=== PATIENT | male | born 1950 | race Caucasian/White ===

== ENCOUNTER 2022-01-23 08:20 | Outpatient (REF) | payer MEDICARE, OTHER, SELFPAY ==
--- NOTE | ~2022-01-23 | XR_ITS ---
EXAMINATION: XR CHEST CLINICAL INFORMATION: Cough COMPARISON: None TECHNIQUE: 2 views of the chest were obtained. FINDINGS: The cardiac and mediastinal contours are normal. There is linear scarring or subsegmental atelectasis at the right lung base. The lungs are otherwise clear. There is no pleural effusion or pneumothorax. There are degenerative changes of the spine. There are surgical clips in the upper midline abdomen. XR/XR chest 2V IMPRESSION: Linear scarring or subsegmental atelectasis at the right lung base. Otherwise unremarkable exam.
== END 2022-01-23 08:21 | disposition home or self-care (01) ==
LOC: HO.XRAY 08:20
PROVIDERS: Absent Provider Internal Medicine; PCP Internal Medicine; Visit Provider Emergency Medicine
DX: R05.9 Cough, unspecified (principal)
CPT/HCPCS: 71046

== ENCOUNTER 2022-07-30 11:20 | Emergency (ER) | payer MEDICARE, OTHER, SELFPAY ==
--- NOTE | ~2022-07-30 | XR_ITS ---
EXAMINATION: XR CHEST CLINICAL INFORMATION: Elevated blood pressure. COMPARISON: 01/23/2022 chest radiographs. TECHNIQUE: Frontal view of the chest was obtained. FINDINGS: No significant abnormality is noted involving the heart, lungs, mediastinum, bony thorax or soft tissues. XR/XR chest 1V IMPRESSION: No acute cardiopulmonary process.
[2022-07-30 11:31] VITALS: BP 204/82; PULSE 80; O2SAT 98
--- NOTE | 2022-07-30 11:31 | ECG_ITS ---
Test Reason : cp Blood Pressure : / mmHG Vent. Rate : 073 BPM Atrial Rate : 073 BPM P-R Int : 166 ms QRS Dur : 128 ms QT Int : 378 ms P-R-T Axes : 056 045 037 degrees QTc Int : 416 ms Normal sinus rhythm Right bundle branch block Abnormal ECG No previous ECGs available Referred By: Sandi Monroy Electronically Signed By:JIGNA MORELOS MD
[2022-07-30 11:32] VITALS: BP 219/86; PULSE 83; RESP 18; TEMP 37.1; O2SAT 100; BMI 29.6
--- NOTE | 2022-07-30 11:52 | ED_ITS ---
HPI - Recheck/Abnormal Lab/Rx General Chief Complaint: General Medical Stated Complaint: High BP 202/95 at doctors office per EMS Time Seen by Provider: 07/30/22 11:26 Source: patient and EMS Mode of arrival: EMS Limitations: language barrier (Mongolian Speaking) History of Present Illness HPI narrative: 71yoM c PMHx of HTN, DM, NSTEMI w CARLEE to RCA at [facility] with an echocardiogram that showed preserved LV systolic function, no regional wall motion abnormalities, no valve abnormalities, an intact ejection fracture 55-60%, stage III CKD, hepatitis C cirrhosis and hepatocellular carcinoma status post liver transplant at [facility] who is presenting to the ED via EMS after he was found to have an elevated blood pressure at his PCP office where he went for a wellness visit prior to arrival. Patient reports the liver Transplant Clinic told him to hold his blood pressure medications for an MRI he had yesterday. Therefore he was supposed to hold his blood pressure medications yesterday and the day before yesterday which she did. Today when he got up he was unable to eat breakfast therefore he rash to get to his PCP appointment and he did not take his blood pressure medication. then when he arrived that his PCPs office he was noted to have a blood pressure of 202/[address] depressions on his EKG no other complaints therefore they sent him here for further evaluation treatment. Patient is supposed to be on labetalol 300 mg b.i.d. and losartan 25 mg daily. He denies any complaints at this time which include any dizziness, headaches, neck pain / stiffness, change in vision, jaw pain, ear ringing, chest pain or shortness of breath, dyspnea on exertion, orthopnea, palpitations, paresthesias, nausea/vomiting / diarrhea constipation, black or bloody stools, abdominal pain, flank pain, back pain, dysuria, hematuria, abnormal penile discharge, lower extremity edema or calf tenderness, rashes, recent travel or sick contacts or any other symptoms complaints or concerns at this time. MD complaint: abnormal lab ( elevated blood pressure 202/95) Initial visit (ago): hour(s) ( prior to arrival) Returns today for: other ( was at a regular follow-up visit PCPs for his diabetes and hypertension and was sent here Due to elevated BP and ST depressions on EKG) Symptoms since prior visit: no new symptoms Associated symptoms: none Related Data Allergies Allergy/AdvReac Type Severity Reaction Status Date / Time No Known Allergies Allergy Verified 07/30/22 11:31 Review of Systems Review of Systems: Constitutional : No Weight loss, No Fever, No Chills, No Night Sweats, No Fatigue, No Malaise ENT/Mouth : No Hearing loss, No Ear Pain, No Nasal Congestion, No Sinus Pain, No Hoarseness, No sore throat, No Rhinorrhea, No Swallowing Difficulty Eyes: No Eye Pain, No Swelling, No Redness, No Foreign Body, No Discharge, No Vision Changes Cardiovascular : No Chest Pain, No SOB, No Dyspnea on Exertion, No Orthopnea, No Edema, No Palpitations Respiratory : No Cough, No Sputum, No Wheezing, No Smoke Exposure, No Dyspnea Gastrointestinal : No Nausea, No Vomiting, No Diarrhea, No Constipation, No abdominal Pain, No Hematochezia, No Melena Genitourinary : no irregular bleeding, No Dysuria, No Urinary Frequency, No Hematuria, No Urinary Incontinence, No Urgency, No Flank Pain, No Urinary Flow Changes, No Hesitancy Musculoskeletal : No joint pain, No Myalgias, No Joint Swelling Skin : No Skin Lesions, No rash Neuro : No Weakness, No Numbness, No Paresthesias, No Loss of Consciousness, No Dizziness, No Headache Psych : No Anxiety/Panic, No Depression, No SI/HI/AH/VH, No Social Issues, Heme/Lymph: No Bruising, No Bleeding,No Lymphadenopathy Endocrine : No Polyuria, No Polydipsia, No Temperature Intolerance + Elevated Blood Pressure Yes all other systems are reviewed and are negative [facility] Past Medical History Attestation statement: The following information was validated with the patient. Source: old records reviewed, obtained from family and nursing notes reviewed Medical History History of hepatitis C History of kidney stones Surgical History History of colonoscopy History of cystoscopy History of liver biopsy Social History Social History Advance Directives: No Advance Directives Information Provided: No Physical Exam Vital Signs: Vital Signs: Last Vital Signs Temp 98.8 F 07/30/22 11:32 Pulse 83 07/30/22 11:32 Resp 18 07/30/22 11:32 BP 219/86 H 07/30/22 11:32 Pulse Ox 100 07/30/22 11:32 O2 Del Method 07/30/22 11:32 BMI result Body Mass Index 29.6 Vital signs reviewed. Blood pressure 219/86. Pulse normal. Respiration normal. Oxygen normal. Temperature normal. Appearance: Alert. Oriented X3. No acute distress. Head: Normal external exam. Normocephalic. Atraumatic. Eyes: PERRLA. EOMI. Conjunctiva and sclera normal. Eyelids normal. ENT: EAC normal. TM's Normal. Pharynx normal. Uvula midline. Moist mucous membranes. No lesions/ulcerations or masses noted on the tongue. Normal voice. No trismus noted. No drooling noted. No muffled voice noted. Neck: Normal inspection. Neck supple. FROM. No adenopathy. Thyroid Normal. No meningeal signs. CVS: Normal heart rate and rhythm. Heart sound normal. Pulses normal throughout. No murmurs/rales/gallops. Respiratory: No respiratory distress. Painless inspiration. Breath sounds normal. No wheezes/rales/rhonchi noted. Chest nontender. No accessory muscle usage noted or decreased air movement noted. Abdomen: Soft and nontender. Back: Full range of motion noted. Nontender. Skin: Skin warm and dry. Normal skin color. Normal skin turgor. No rashes/lesions/lacerations noted. Extremities: Extremities exhibit normal range of motion and nontender. Neuro: Oriented X 3. No motor deficit. No sensory deficit. Reflexes normal. Normal steady gait. No focal neuro deficits noted. CN's II-XII intact bilaterally? Vascular: + radial pulses. Normal cap refill. No cyanosis noted to upper extremity nails Course Course Course Narrative: 11:30am - 71yoM c PMHx of HTN, DM, NSTEMI w CARLEE to RCA at [facility] with an echocardiogram that showed preserved LV systolic function, no regional wall motion abnormalities, no valve abnormalities, an intact ejection fracture 55- 60%, stage III CKD, Hep C cirrhosis and hepatocellular carcinoma s/p liver transplant at [facility] who is presenting to the ED via EMS after he was found to have an elevated blood pressure of 202/95 at his PCP office where he went for a wellness visit prior to arrival. Patient reports the liver Transplant Clinic told him to hold his blood pressure medications for an MRI he had yesterday. Therefore he was supposed to hold his blood pressure medications yesterday and the day before yesterday which she did. Today when he got up he was unable to eat breakfast therefore he rash to get to his PCP appointment and he did not take his blood pressure medication. then when he arrived that his PCPs office he was noted to have a blood pressure of 202/[address] depressions on his EKG no other complaints therefore they sent him here for further evaluation treatment. Patient is supposed to be on labetalol 300 mg b.i.d. and losartan 25 mg daily. Patient denies any complaints at this time. Plan: Will obtain labs, chest x-ray, EKG. Provide the patient's labetalol 300 mg and losartan 25 mg re-evaluate. Reevaluation(s) Reevaluation #1: labs obtained and reviewed - patient with mild anemia with an H&H of 12.8/38.3. - BUN and creatinine 22/1.60. I spoke to the patient's PCP by desean sanchez and he reported as of 11/17/21 patient's BUN and creatinine were 14/1.36. Patient is unsure what his labs labs were when he went to Nephrology. Or what his baseline BUN and creatinine are. - Random glucose 136. - Troponin 5.2 which is negative. Otherwise all other labs are within normal limits. Chest x-ray within normal limits no acute processes noted. EKG normal sinus rhythm ventricular rate of 73 with a right bundle-branch block nonspecific ST abnormality no acute ischemic change are noted. No prior to compare to at this time in our system. Blood pressure is now 184/79 after patient taking his prescribed medications. I discussed this case with Dr. Colbert. He reported that the patient does not need to be hydrated most likely this patient has BUN and creatinine is his new baseline due to he does not have any priors in our computer or with his PCP. 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 Patient understands agrees with this plan. Time: 14:41 Medications Administered Discontinued Medications Generic Name Dose Route Start Last Admin Trade Name Freq PRN Reason Stop Dose Admin Labetalol HCl 300 mg 07/30/22 11:32 07/30/22 12:26 Labetalol Hcl 200 Mg Tablet PO 07/30/22 11:33 300 mg ONCE ONE Administration Protocol Losartan Potassium 25 mg 07/30/22 11:32 07/30/22 12:26 Losartan Potassium 25 Mg Tablet PO 07/30/22 11:33 25 mg ONCE ONE Administration Protocol Medical Decision Making Medical Decision Making Lab Attestation: I reviewed the patient's lab results. Independent interpretation of EKG, rhythm strip, radiology study: Independent interp EKG,rhythm strip, radiology study I performed an independent interpretation of the: EKG and Plain X-Ray My interpretation is EKG normal sinus rhythm ventricular rate of 73 with a right bundle-branch block nonspecific ST abnormality no acute ischemic change are noted. No prior to compare to at this time in our system. CXR revealed FINDINGS: No significant abnormality is noted involving the heart, lungs, mediastinum, bony thorax or soft tissues. XR/XR chest 1V IMPRESSION: No acute cardiopulmonary process. Discussion of test interpretation with radiology: Discussion of test interpretation with radiology Independent historian (e.g., spouse, EMS, friend): Independent historian (e.g., spouse, EMS, friend) Clinical information obtained from an independent historian. 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) Chronic conditions affecting care (e.g., diabetes, HTN): Chronic conditions affecting care (e.g., diabetes, HTN) Patient?s care impacted by: Diabetes, Hypertension and Other (CKD, Hepatitis C with liver cirrhosis s/p liver transplant) Critical Care Time Critical Care Time Critical Care Time: Yes Total Critical Care Time: 60 Attestation: I personally attest to this time spent taking care of the patient Discharge Plan Discharge Clinical Impression: Elevated blood pressure reading, Hypertension, CKD (chronic kidney disease) Patient Disposition: Home, Self-Care Referrals: Shaun Bloom MD [Primary Care Provider] - 3 days Print Language: Mongolian
[2022-07-30] MEDS: Labetalol HCL 200 MG TABLET 300 MG PO (12:26)
[2022-07-30] MEDS: Losartan Potassium 25 MG TABLET PO (12:26)
[2022-07-30 12:53] LABS: MANUAL DIFF FLAG NO
[2022-07-30 12:58] LABS: Basophils Absolute Auto 0.1 X10*3/uL (0.0-0.2); Basophils Percent Auto 0.7 % (0-2); Eosinophils Absolute Auto 0.2 X10*3/uL (0.0-0.4); Eosinophils Percent Auto 1.9 % (0-4); Hematocrit 38.3 % (42.0-52.0); Hemoglobin 12.8 g/dl (14.0-18.0); Imm Gran Abs Auto 0.03 X10*3/uL (0.00-0.03); Imm Gran Pct Auto 0.3 % (0.0-0.4); Lymphocytes Absolute Auto 1.5 X10*3/uL (1.2-4.9); Mean Corpuscular HGB Conc 33.4 g/dl (31.0-36.0); Mean Corpuscular Hemoglobin 29.6 pg (27.0-33.0); Mean Corpuscular Volume 88.7 fL (80.0-98.0); Mean Platelet Volume 10.7 fL (9.4-12.4); Monocytes Absolute Auto 0.7 X10*3/uL (0.1-1.2); Monocytes Percent Auto 6.4 % (2-11); Neutrophils Absolute Auto 8.1 x10*3/uL (2.0-8.3); Neutrophils Percent Auto 76.7 % (45-73); Platelet Count 247 X10*3/uL (160-400); Red Blood Count 4.32 X10*6/uL (4.60-5.80); Red Cell Distribution Width 13.1 % (11.0-16.0); White Blood Count 10.6 X10*3/uL (4.8-10.8)
[2022-07-30 13:15] LABS: Alanine Aminotransferase 10 U/L (0-40); Albumin Level 4.4 g/dL (3.5-5.0); Alkaline Phosphatase 70 U/L (39-117); Anion Gap 14 (12-20); Aspartate Amino Transferase 15 U/L (5-37); Bilirubin Total 0.5 mg/dL (0.0-1.0); Blood Urea Nitrogen 22 mg/dL (9-16); Calcium 9.4 mg/dL (8.4-10.2); Carbon Dioxide 29 mmol/L (22-29); Chloride 104 mmol/L (96-108); Creatinine Clr Calc Pharmacy 37.2; Estimated Glomerular Filt Rate 43; Glucose Random 136 mg/dL (60-115); Magnesium 1.7 mg/dL (1.6-2.6); Potassium 4.6 mmol/L (3.3-5.1); Sodium 142 mmol/L (135-145); Total Protein 6.9 g/dL (6.5-8.0); Troponin-I High Sensitivity 5.2 ng/L (<3.5-35.0)
[2022-07-30 14:54] VITALS: BP 184/79
[2022-07-30 15:07] VITALS: BP 184/76; PULSE 75; RESP 16; O2SAT 97
== END 2022-07-30 15:41 | disposition home or self-care (01) ==
PROVIDERS: Physician Assistant Medical; Emergency Provider Emergency Medicine; PCP Internal Medicine
DX: R07.89 Other chest pain (principal); I12.9 Hypertensive chronic kidney disease with stage 1 through stage 4 chronic kidney disease, or unspecified chronic kidney disease; E11.22 Type 2 diabetes mellitus with diabetic chronic kidney disease; N18.9 Chronic kidney disease, unspecified; Z79.899 Other long term (current) drug therapy; Z79.4 Long term (current) use of insulin
CPT/HCPCS: 36415; 71045; 80053; 83735; 84484; 85025; 93005; 99283; 99284

== ENCOUNTER 2023-09-21 09:09 | Outpatient (REF) | payer MEDICARE, MEDICAID, SELFPAY ==
[2023-09-21 12:08] LABS: Cholesterol 120 mg/dL (<200); HDL Cholesterol 33 mg/dL (>40); LDL Cholesterol Calculated 74 mg/dL (<100); Triglycerides 69 mg/dL (<150)
== END 2023-09-21 09:10 | disposition home or self-care (01) ==
LOC: HO.HHCL 09:09
PROVIDERS: Visit Provider Internal Medicine
DX: E78.2 Mixed hyperlipidemia (principal)
CPT/HCPCS: 36415; 80061

== ENCOUNTER 2023-10-14 08:09 | Outpatient (AMB) | payer MEDICARE, MEDICAID, SELFPAY ==
--- NOTE | 2023-10-14 08:13 | A.OFFVIS_ITS ---
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 Organisational Psychologist Required: Yes Organisational Psychologist Language: Bliss Press Operator Name: Lius([id number]) Allergies No Known Allergies Allergy (Verified 10/14/23 08:26) Medication List - Last Reviewed 10/14/23 by Radhika Hernandez MA aspirin 81 mg PO DAILY docusate sodium 100 mg PO BID hydralazine 25 mg PO BID insulin aspart U-100 (Novolog FlexPen U-100 Insulin aspart) 1 sliding scale dose subcut USEASDIRECTD insulin glargine (Lantus Solostar U-100 Insulin) 24 units subcut QAM labetalol 300 mg PO BID losartan 25 mg PO DAILY metformin 500 mg PO nifedipine ER 60 mg PO QAM omeprazole 20 mg PO DAILY sennosides (senna) 17.2 mg PO BEDTIME tacrolimus mg PO HPI HPI Comments History of Present Illness Details Shaji is here for consultation regarding coronary artery disease. He really does not know much. Per documentation, history of coronary disease and he also has a history of liver transplant. In 2019, he was admitted to [facility] with NSTEMI. At that time, underwent PCI to RCA. Patient really does not know any of his medications or in fact anything else. He states he is doing fine. No clear-cut anginal-type symptoms. Pharmacy was called to clarify the medications. [facility] Medical History (Updated 10/14/23 @ 08:54 by Jordan Walton MD) Hepatocellular carcinoma Diabetes Hypertension Atherosclerotic cardiovascular disease History of hepatitis C History of kidney stones Surgical History (Updated 10/14/23 @ 08:55 by Jordan Walton MD) Transplanted liver History of liver biopsy History of cystoscopy History of colonoscopy Family History (Updated 10/14/23 @ 08:55 by Jordan Walton MD) Father No problems noted. Mother No problems noted. Social History Household Members: Family Alcohol intake: never Patient Tobacco Use Status: Never used Tobacco Review of Systems Const All systems reviewed & are unremarkable except as noted in HPI and below Reports as per HPI and Reports no additional complaints Eyes Reports as per HPI and Denies no additional complaints ENT Denies no additional complaints and Reports as per HPI Card Denies as per HPI, Denies no additional complaints, Denies acrocyanosis, Denies chest pain, Denies chest pain at rest, Denies chest pain with activity, Denies diaphoresis, Denies syncope, Denies rapid heart rate, Denies pedal edema, Denies edema, Denies irregular heart rhythm, Denies claudication, Denies leg ulcers, Denies leg edema, Denies lightheadedness, Denies radiating jaw, neck or arm pain, Denies palpitations, Denies dyspnea, Denies dyspnea on exertion, Denies orthopnea, Denies paroxysmal nocturnal dyspnea, Denies slow heart rate and Denies other Resp Denies dyspnea and Denies dyspnea on exertion GI Reports as per HPI and Denies no additional complaints Reports no additional complaints and Reports as per HPI Musc Reports no additional complaints and Reports as per HPI Skin/Breast Reports system reviewed and no additional complaints, except as documented Neuro Denies syncope Psych Reports no additional complaints and Reports as per HPI Endo Denies palpitations Paco/Lymph Reports no additional complaints and Reports as per HPI Aller/Immun Reports no additional complaints and Reports as per HPI Physical Exam Vital Signs: Last Vital Signs Pulse 83 10/14/23 08:26 BP 117/40 L 10/14/23 08:26 Pulse Ox 98 10/14/23 08:26 Oxygen Delivery Method Room Air 10/14/23 08:26 BMI result Body Mass Index 29.5 Const General: comfortable and no acute distress Orientation/consciousness: patient oriented x3 HEENT Other: Unremarkable Head: Yes normal to inspection Neck Neck: Yes normal visual inspection Chest Chest palpation & inspection: normal inspection of the chest Resp Auscultation: clear to auscultation bilaterally Cardio Palpation: normal PMI Heart sounds: S1 normal heart sound present, S2 normal heart sound present, no gallops, Murmur heart sound present systolic II/ and no rubs GI Palpation (GI): Soft to palpation Back/Spine/Pelvis Other: unremarkable Skin General skin exam: no rashes or lesions noted Neuro General: patient oriented x3 Extrem General: Yes normal to inspection Psych Mental Status: mental status grossly normal Office Procedures EKG Details: EKG with sinus rhythm at 78/Min; right bundle-branch block pattern; [place] [id number], Complete Assessment & Plan Assessment & Plan (1) Atherosclerotic cardiovascular disease: Code(s): I25.10 - Atherosclerotic heart disease of [place] coronary artery without angina pectoris (2) Stented coronary artery: Code(s): Z95.5 - Presence of coronary angioplasty implant and graft (3) NSTEMI (non-ST elevated myocardial infarction): Code(s): I21.4 - Non-ST elevation (NSTEMI) myocardial infarction (4) Hypertension: Code(s): I10 - Essential (primary) hypertension (5) Transplanted liver: Code(s): Z94.4 - Liver transplant status Plan Cardiac catheterization 2019-distal RCA with 90% stenosis status post PCI. Otherwise, no significant coronary disease. Clinically seems to be generally doing okay. May treat for stable CAD. Aspirin and statins. PCP note mentions atorvastatin 80 mg daily but pharmacy list does not have it and hence not very clear. Patient does not know anything about these. Blood pressure seems stable on the current listed meds including hydralazine, labetalol, losartan, nifedipine. To avoid any further confusion, no major changes made. We will get an echocardiogram for cardiac function and see him back in follow-up in 3 months. Orders: Orders CA echo transthoracic complete Today I25.10 - Atherosclerotic heart disease of [place] coronary artery without angina pectoris Coding Level of Care Code New Pt Level 4 (95389) Diagnoses Atherosclerotic cardiovascular disease I25.10 Stented coronary artery Z95.5 NSTEMI (non-ST elevated myocardial infarction) I21.4 Hypertension I10 Transplanted liver Z94.4 CPT Codes EKG - CPT: 22056-[id number], Complete ([id number])
[2023-10-14 08:26] VITALS: BP 117/40; PULSE 83; O2SAT 98; BMI 29.5
== END 2023-10-14 09:10 | disposition home or self-care (01) ==
PROVIDERS: PCP Internal Medicine; Visit Provider Internal Medicine
DX: I25.10 Atherosclerotic heart disease of native coronary artery without angina pectoris (principal); Z95.5 Presence of coronary angioplasty implant and graft; I21.4 Non-ST elevation (NSTEMI) myocardial infarction; I10 Essential (primary) hypertension; Z94.4 Liver transplant status
CPT/HCPCS: 93010; 99204

== ENCOUNTER → 2023-10-14 08:09 | Outpatient (BNVA) | payer MEDICARE, MEDICAID, SELFPAY | PROVIDERS: PCP Internal Medicine; Visit Provider Internal Medicine | DX: I25.10 Atherosclerotic heart disease of native coronary artery without angina pectoris (principal); I21.4 Non-ST elevation (NSTEMI) myocardial infarction; I10 Essential (primary) hypertension; Z94.4 Liver transplant status; Z95.5 Presence of coronary angioplasty implant and graft | CPT/HCPCS: 93005; 99202 ==

== ENCOUNTER → 2023-11-09 12:17 | Outpatient (REF) | payer MEDICARE, OTHER, SELFPAY ==
--- NOTE | 2023-11-09 12:19 | CA_ITS ---
Transthoracic Echocardiogram Patient (Last, First, Middle): Shaji Ramirez, Gender: Male Date of : 1950 Age: 73 Procedure Date: 11/09/2023 Procedure Type: Transthoracic Echocardiogram Location: OP Height: 157. cm Weight: 73.99 kg BSA: 1.75 m2 Heart Rate: 74 bpm BP: 172 / 50 mmHg Sharebroker: QAMAR Referring MD: Jordan Walton MD Symptoms: I25.10 - Atherosclerotic heart disease of [place] coronary artery without... Study Quality: Adequate ECG Rhythm: Sinus Conclusions: - The left ventricular systolic function is normal. The calculated ejection fraction is 68% by biplane method. - No obvious valvular pathology seen on this study. Findings Left Ventricle Normal left ventricular cavity size. There is mildly increased left ventricular wall thickness. The left ventricular systolic function is normal. The calculated ejection fraction is 68% by biplane method. There is no evidence of regional wall motion abnormalities. Diastolic function is normal for age. LV peak GLS -18.5%. Right Ventricle Normal right ventricular cavity size and systolic function. Atria Both atria are normal in size. Aortic Valve There is a normal trileaflet aortic valve. There is no aortic valve stenosis. There is no aortic valve regurgitation. Mitral Valve The mitral valve appears normal. There is no mitral valve regurgitation. There is no mitral valve stenosis. Pulmonic Valve The pulmonic valve is likely normal. Tricuspid Valve Normal tricuspid valve structure. There is trace tricuspid valve regurgitation. There is no evidence of pulmonary hypertension. Great Vessels The asc aorta is normal in size. Venous The inferior vena cava is normal in size and collapses greater than 50% with inspiration. Pericardium/Pleural There is no evidence of pericardial effusion. Prior Study Comparison No prior study available for comparison. Recommendations, Care & Conclusions No obvious valvular pathology seen on this study. Measurements 2D Linear Measurements IVSd: 1.13 0.6-0.9/0.6-1.0 cm LVIDd: 3.58 3.9-5.3/4.2-5.9 cm LVIDd Index: 2.05 2.4-3.2/2.2-3.1 cm/m2 LVIDs: 2.41 2.0-3.6 cm LVPWd: 1.24 0.7-1.1 cm LA Diam: 3.40 2.7-3.8/3.0-4.0 cm LAIDs Index: 1.94 1.5-2.3 cm/m2 LV Mass: 171.35 67-162/88-224 g LV Mass Index: 97.92 43-95/49-115 g/m2 LVOT Diam: 2.00 3.0+(-)1.3 cm 2D Systolic Function EF 4C: 61.90 >55% EF 2C: 75.90 >55% EF BiP: 68.20 >55% Mitral Valve MV Pk E: 0.86 MV PK A: 0.84 MV Decel Time: 213.00 E/A: 1.00 E'Lateral: 8.05 E'Medial: 6.64 E/E' Med: 13.00 E/E' Lat: 10.70 PHT: 63.00 MVA PHT: 3.49 Decel [place]: 4.04 Aortic Valve AoV Pk Kleber: 1.45 AoV Mn Kleber: 1.04 AoV VTI: 0.35 AoV Pk Grad: 8.00 Aov Mn Grad: 5.00 DANIELLE Cont.VTI: 2.10 LVOT LVOT Pk Kleber: 1.02 LVOT Mn Kleber: 0.74 LVOT VTI: 0.23 LVOT Pk Grad: 4.00 LVOT Mn Grad: 2.00 LVOT Diam: 2.00 LVOT Area: 3.14 Diastolic Function MV Pk E: 0.86 MV Pk A: 0.84 E/A: 1.00 E'Medial: 6.64 E/E' Med: 13.00 E' Laterial: 8.05 E/E' Lat: 10.70 Right Ventricle TAPSE (mm): 20.80 TVS' Kleber: 11.50 Tricuspid Valve RA Press: 3.00 Great Vessels Aorta Sinus of Valsalva: 3.10 2.0-3.5 cm Ao Asc: 3.00 2.1-3.4 cm Pulmonary Valve PV Pk Kleber: 0.94 Peak PV Grad: 4.00 Updated in Other Vendor System with Status of Final Jordan Walton MD electronically signed on 11/10/2023 12:02:19 PM with status of Final
== END ==
LOC: HO.CARD 12:17
PROVIDERS: PCP Internal Medicine; Visit Provider Internal Medicine
DX: I25.10 Atherosclerotic heart disease of native coronary artery without angina pectoris (principal)
CPT/HCPCS: 93306; 93356

== ENCOUNTER → 2023-11-09 12:19 | Outpatient (BNV) | payer MEDICARE, MEDICAID, SELFPAY | PROVIDERS: PCP Internal Medicine; Visit Provider Internal Medicine | DX: I25.10 Atherosclerotic heart disease of native coronary artery without angina pectoris (principal) | CPT/HCPCS: 93306; 93356 ==

== ENCOUNTER 2024-01-04 09:35 | Outpatient (AMB) | payer MEDICARE, MEDICAID, SELFPAY ==
[2024-01-04 09:41] VITALS: BP 110/60; PULSE 80; O2SAT 99; BMI 30.6
--- NOTE | 2024-01-04 09:41 | MHC.OFFVIS ---
Vital Signs 01/04/24 09:41 Height 5 ft 2 in Weight 167 lb 8.821 oz BMI 30.6 BP 110/60 Blood Pressure Location Lt brachial Position Sitting Pulse 80 Pulse Source Pulse Oximeter Pulse Oximetry (%) 99 Oxygen Delivery Method Room Air Intake Visit Reasons: 3 month follow up Stations Superintendent Required: Yes Stations Superintendent Name: ELIZABETH [id number] Allergies No Known Allergies Allergy (Verified 10/14/23 08:26) Medication List - Last Reconciled 01/04/24 by Jordan Walton MD aspirin 81 mg PO DAILY docusate sodium 100 mg PO BID hydralazine 25 mg PO BID insulin aspart U-100 (Novolog FlexPen U-100 Insulin aspart) 1 sliding scale dose subcut USEASDIRECTD insulin glargine (Lantus Solostar U-100 Insulin) 24 units subcut QAM labetalol 300 mg PO BID losartan 25 mg PO DAILY metformin 500 mg PO nifedipine ER 60 mg PO QAM omeprazole 20 mg PO DAILY sennosides (senna) 17.2 mg PO BEDTIME tacrolimus mg PO HPI Comments Details: Shaji returns for follow-up. Previously seen for coronary disease. Limited information from patient. Per documentation, history of coronary disease and he also has a history of liver transplant. In 2019, he was admitted to [facility] [place] with NSTEMI. At that time, underwent PCI to RCA. Patient really does not know any of his medications or in fact anything else. He states he is doing fine. No clear-cut anginal-type symptoms. [facility] Medical History (Updated 10/14/23 @ 08:54 by Jordan Walton MD) Hepatocellular carcinoma Diabetes Hypertension Atherosclerotic cardiovascular disease History of hepatitis C History of kidney stones Surgical History (Updated 10/14/23 @ 08:55 by Jordan Walton MD) Transplanted liver History of liver biopsy History of cystoscopy History of colonoscopy Family History (Updated 10/14/23 @ 08:55 by Jordan Walton MD) Father No problems noted. Mother No problems noted. Social History Household Members: Family Alcohol intake: never Patient Tobacco Use Status: Never used Tobacco Review of Systems Const Denies chills, Denies fatigue, Denies fever(s), Denies frequent falls, Denies weakness, Denies weight gain and Denies weight loss ENT Denies dizziness Card Denies chest pain, Denies leg edema, Denies lightheadedness, Denies palpitations, Denies dyspnea and Denies dyspnea on exertion Resp Denies cough, Denies dyspnea and Denies dyspnea on exertion GI Denies hematochezia Musc Denies abnormal gait, Denies muscle weakness, Denies numbness, Denies radiating pain into limb and Denies tingling Neuro Denies abnormal gait, Denies dizziness, Denies frequent falls, Denies numbness, Denies tingling and Denies weakness Endo Denies fatigue and Denies palpitations Physical Exam Vital Signs: Last Vital Signs Pulse 80 01/04/24 09:41 BP 110/60 01/04/24 09:41 Pulse Ox 99 01/04/24 09:41 Oxygen Delivery Method Room Air 01/04/24 09:41 BMI result Body Mass Index 30.6 Const General: comfortable and no acute distress Orientation/consciousness: patient oriented x3 HEENT Other: Unremarkable Head: Yes normal to inspection Neck Neck: Yes normal visual inspection Chest Chest palpation & inspection: normal inspection of the chest Resp Auscultation: clear to auscultation bilaterally Cardio Palpation: normal PMI Heart sounds: S1 normal heart sound present, S2 normal heart sound present, no gallops, no murmurs and no rubs GI Palpation (GI): Soft to palpation Back/Spine/Pelvis Other: unremarkable Skin General skin exam: no rashes or lesions noted Neuro General: patient oriented x3 Extrem General: Yes normal to inspection Psych Mental Status: mental status grossly normal Assessment & Plan Assessment & Plan (1) Atherosclerotic cardiovascular disease: Code(s): I25.10 - Atherosclerotic heart disease of [place] coronary artery without angina pectoris Category: Medical (2) Stented coronary artery: Code(s): Z95.5 - Presence of coronary angioplasty implant and graft Category: Surgical (3) NSTEMI (non-ST elevated myocardial infarction): Code(s): I21.4 - Non-ST elevation (NSTEMI) myocardial infarction Category: Medical (4) Hypertension: Code(s): I10 - Essential (primary) hypertension Category: Medical (5) Transplanted liver: Code(s): Z94.4 - Liver transplant status Category: Surgical Plan Cardiac catheterization 2019-distal RCA with 90% stenosis status post PCI. Otherwise, no significant coronary disease. Clinically seems to be generally doing okay. May treat for stable CAD. Long-term aspirin. With regard statins, PCP note has statins listed but not in his med list or pharmacy list. Will clarify that with PCP and preferably all his meds should come from PCP to avoid any confusion. For blood pressure, listed to be on hydralazine, labetalol, losartan, nifedipine. No changes with that. Follow-up in 1 year. In the interim, call with concerns. Coding Level of Care Code Est Pt Level 4 (48704) Diagnoses Atherosclerotic cardiovascular disease I25.10 Stented coronary artery Z95.5 NSTEMI (non-ST elevated myocardial infarction) I21.4 Hypertension I10 Transplanted liver Z94.4
== END 2024-01-04 09:58 | disposition home or self-care (01) ==
PROVIDERS: PCP Internal Medicine; Visit Provider Internal Medicine
DX: I25.10 Atherosclerotic heart disease of native coronary artery without angina pectoris (principal); Z95.5 Presence of coronary angioplasty implant and graft; I21.4 Non-ST elevation (NSTEMI) myocardial infarction; I10 Essential (primary) hypertension; Z94.4 Liver transplant status
CPT/HCPCS: 99214

== ENCOUNTER → 2024-01-04 09:35 | Outpatient (BNVA) | payer MEDICARE, MEDICAID, SELFPAY | PROVIDERS: PCP Internal Medicine; Visit Provider Internal Medicine | DX: I25.10 Atherosclerotic heart disease of native coronary artery without angina pectoris (principal); I10 Essential (primary) hypertension; I25.2 Old myocardial infarction; Z79.899 Other long term (current) drug therapy; Z95.5 Presence of coronary angioplasty implant and graft; Z94.4 Liver transplant status | CPT/HCPCS: 99212 ==

== ENCOUNTER 2025-01-09 09:04 | Outpatient (AMB) | payer MEDICARE, MEDICAID, SELFPAY ==
--- NOTE | 2025-01-09 09:08 | MHC.OFFVIS ---
Vital Signs 01/09/25 09:12 Height 5 ft 2 in Weight 149 lb 14.629 oz BMI 27.4 BP 110/50 L Blood Pressure Location Lt brachial Position Sitting Pulse 88 Pulse Source Monitor Intake Visit Reasons: 1yr follow up Patrol Conductor Required: Yes Patrol Conductor Language: Cane Flume Feeding Machine Operator Name: [email or web address]/[email or web address]/ Accompanied by: Self / Same As Patient Allergies No Known Allergies Allergy (Verified 10/14/23 08:26) Medication List - Last Reconciled 01/09/25 by Jordan Walton MD aspirin 81 mg PO DAILY docusate sodium 100 mg PO BID hydralazine 25 mg PO BID insulin aspart U-100 (Novolog FlexPen U-100 Insulin aspart) 1 sliding scale dose subcut USEASDIRECTD insulin glargine (Lantus Solostar U-100 Insulin) 24 units subcut QAM labetalol 300 mg PO BID losartan 25 mg PO DAILY metformin 500 mg PO nifedipine ER 60 mg PO QAM omeprazole 20 mg PO DAILY sennosides (senna) 17.2 mg PO BEDTIME tacrolimus mg PO HPI Comments Details: Shaji returns for follow-up. Previously seen for coronary disease. Limited information from patient. Per documentation, history of coronary disease and he also has a history of liver transplant. In 2019, he was admitted to [facility] with NSTEMI. At that time, underwent PCI to RCA. He states he is doing well. No cardiac symptoms whatsoever. [facility] Medical History (Updated 10/14/23 @ 08:54 by Jordan Walton MD) Hepatocellular carcinoma Diabetes Hypertension Atherosclerotic cardiovascular disease History of hepatitis C History of kidney stones Surgical History Transplanted liver History of liver biopsy History of cystoscopy History of colonoscopy Family History Father No problems noted. Mother No problems noted. Social History Household Members: Family Alcohol intake: never Patient Tobacco Use Status: Never used Tobacco Review of Systems Const Denies chills, Denies fatigue, Denies fever(s), Denies frequent falls, Denies weakness, Denies weight gain and Denies weight loss ENT Denies dizziness Card Denies chest pain, Denies leg edema, Denies lightheadedness, Denies palpitations, Denies dyspnea and Denies dyspnea on exertion Resp Denies cough, Denies dyspnea and Denies dyspnea on exertion GI Denies hematochezia Musc Denies abnormal gait, Denies muscle weakness, Denies numbness, Denies radiating pain into limb and Denies tingling Neuro Denies abnormal gait, Denies dizziness, Denies frequent falls, Denies numbness, Denies tingling and Denies weakness Endo Denies fatigue and Denies palpitations Physical Exam Vital Signs: Last Vital Signs Pulse 88 01/09/25 09:12 BP 110/50 L 01/09/25 09:12 BMI result Body Mass Index 27.4 Const General: comfortable and no acute distress Orientation/consciousness: patient oriented x3 HEENT Other: Unremarkable Head: Yes normal to inspection Neck Neck: Yes normal visual inspection Chest Chest palpation & inspection: normal inspection of the chest Resp Auscultation: clear to auscultation bilaterally Cardio Palpation: normal PMI Heart sounds: S1 normal heart sound present, S2 normal heart sound present, no gallops, no murmurs and no rubs GI Palpation (GI): Soft to palpation Back/Spine/Pelvis Other: unremarkable Skin General skin exam: no rashes or lesions noted Neuro General: patient oriented x3 Extrem General: Yes normal to inspection Psych Mental Status: mental status grossly normal Office Procedures EKG Details: EKG with underlying sinus rhythm at 88/Min; right bundle-branch block pattern. 10253-[id number], Complete Assessment & Plan Assessment & Plan (1) Atherosclerotic cardiovascular disease: Code(s): I25.10 - Atherosclerotic heart disease of [place] coronary artery without angina pectoris Category: Medical (2) Stented coronary artery: Code(s): Z95.5 - Presence of coronary angioplasty implant and graft Category: Surgical (3) NSTEMI (non-ST elevated myocardial infarction): Code(s): I21.4 - Non-ST elevation (NSTEMI) myocardial infarction Category: Medical (4) Hypertension: Code(s): I10 - Essential (primary) hypertension Category: Medical (5) Transplanted liver: Code(s): Z94.4 - Liver transplant status Category: Surgical Plan Cardiac catheterization 2019-distal RCA with 90% stenosis status post PCI. Otherwise, no significant coronary disease. Echocardiogram 2023-LVEF 68%. Peak global longitudinal strain-18.5%. No significant valvular findings. Overall, stable from cardiac standpoint. Continue current regimen including aspirin, diabetes and hypertension medications. However, he is not actually aware of the names when I asked him. With regard to lipids, not sure if he is taking statins either. We will need to check with his own pharmacy. Discussion Notes I discussed with the patient the current post-transplantation care with tacrolimus and confirmed no symptoms of chest pain or pressure. We talked about the medications for hyperlipidemia and the importance of consulting the pharmacy for any changes, ensuring optimal management of lipid levels. Our discussion emphasized staying alert to any cardiovascular symptoms and seeking immediate care if such symptoms arise. Follow-up with cardiac and transplant specialists was confirmed, including a review and potential discussion of diagnostic results. Agreement on one-year routine follow-up was made clear unless conditions change. Patient was informed and verbally consented to the use of an ambient scribe for clinic note documentation during this visit. Patient Instructions: - Review cholesterol medication with your pharmacy. - Call a doctor immediately if you feel chest pain or any unusual symptoms. - Continue your follow-up appointments as planned. - See your doctors if new issues come up. - We'll see you in one year for your routine check-up unless needed sooner. Coding Level of Care Code Est Pt Level 4 (99823) Diagnoses Atherosclerotic cardiovascular disease I25.10 Stented coronary artery Z95.5 NSTEMI (non-ST elevated myocardial infarction) I21.4 Hypertension I10 Transplanted liver Z94.4 CPT Codes EKG - CPT: 88221-[id number], Complete ([id number])
[2025-01-09 09:12] VITALS: BP 110/50; PULSE 88; BMI 27.4
--- OUTSIDE RECORDS SUMMARY | 2025-01-09 09:43 | XMS_ITS | Encounter Summary ---
Author Organization [employer] Address [address] [place] [address] Care Team Providers Care Bartender Name Role Phone Shaun Tarango MD Primary Care Provide r Tavon Villa PharmD Unavailable [phone] Airam Chen PharmD Unavailable [phone] Encounter Details Date Type Department Care Team (Late st Contact Info) Description 07/15/[address] [facility] MEDICINE [address] [place] [address] [phone] Shaun Tarango MD [address] [place] [phone] Social History Tobacco Use Types Packs/Day Years Used Date Smoking Tobacco: Never Assessed Sex and Gender Information Value Date Recorded Sex Assigned at Male 06/22/2022 10:14 AM EDT Legal Sex Male 10:14 AM EDT Gender Identity Male 06/22/2022 10:14 AM EDT Sexual Orientation Straight 06/22/2022 10 :14 AM EDT documented as of this encounter Plan of Treatment Upcoming Encounters Date Type Department Care Team (Late st Contact Info) Description 01/18/2025 10:30 AM EDT Nurse Only [facility] MEDICINE [address] [place] [address] [phone] 02/15/2025 9:15 AM EDT Office Visit [facility] MEDICINE [address] [place] [address] [phone] Shaun Tarango MD [address] [place] [address] [phone] 03/08/2025 9:30 AM EDT Telemedicine [facility] MEDICINE [address] [place] [address] Airam Chen, PharmD [address] [place] [phone] documented as of this encounter Procedures Procedure Name Priority Date/Time Associated Diagnosis Comments COLONOSCOPY Routine 02/09/2022 documented in this encounter Results * Hm Colonoscopy (02/09/2022) Colonoscopy Normal us Historical Provider HEALTH MAINTENANCE Final Result documented in this encounter Visit Diagnoses Not on filedocumented in this encounter Care Teams Bartender Relationship Specialty Start Date End Date Shaun Tarango MD [address] [place] [phone] PCP - General Internal Medicine 04/25/14 Tavon Villa, MinaD [address] [place] [phone] Pharmacist Internal Medicine 11/04/23 08/30/24 Airam Chen, PharmD [address] [place] [address] [phone] Pharmacist Internal Medicine 08/31/24 documented as of this encounter
--- OUTSIDE RECORDS SUMMARY | 2025-01-09 09:43 | XMS_ITS | Encounter Summary ---
Author Organization [facility] Address [address] [place] [address] Care Team Providers Care Flap Maker Name Role Phone Shaun Bloom Primary Care Provider + Encounter Details Date Type Department Care Team (Late st Contact Info) Description 05/26/2017 Transplant Conversio n Encounter [facility] Health Information Management [address] [place] [address] Provider, [facility] Social History Tobacco Use Types Packs/Day Years Used Date Smoking Tobacco: Former Comments:: Sex and Gender Information Value Date Recorded Sex Assigned at Male 10/20/2023 6:44 AM EST Legal Sex Male 7:50 AM EDT Gender Identity Not on file Sexual Orientation Not on file documented as of this encounter Plan of Treatment Upcoming Encounters Date Type Department Care Team (Latest Contact Info) Description 01/19/2025 8:45 AM EDT Hospital Encounter [facility] Endoscopy [address] [place] [address] Soraida Atkins MD [address] [place] [address] 01/19/2025 8:45 AM EDT - 01/19/2025 9:30 AM EDT Surgery [facility] Endoscopy [address] [place] [address] Soraida Atkins MD [address] [place] [address] COLONOSCOPY, DIAGNOSTIC, WITH POSSIBLE MODERATE SEDATION [42398 (CPT??)] 05/22/2025 10:00 AM EDT Follow-Up [facility] Liver Transplant Services [address] [place] [address] Soraida Atkins MD [address] [place], [place] [phone] Scheduled Procedures Name Priority Associated Diagnoses Date/Ti me COLONOSCOPY, DIAGNOSTIC, WITH POSSIBLE MODERATE SEDATION Liver transplant recipient (HCC) 01/19/2025 8:45 AM EDT documented as of this encounter Visit Diagnoses Not on filedocumented in this encounter Care Teams Flap Maker Relationship Specialty Start Date End Date Shaun Bloom [address] [place] [address] PCP - General Internal Medicine 03/07/18 documented as of this encounter
--- OUTSIDE RECORDS SUMMARY | 2025-01-09 09:43 | XMS_ITS | Encounter Summary ---
Author Organization [facility] Address [address] [place] [address] Care Team Providers Care Key Sander Name Role Phone Shaun Bloom Primary Care Provider + Encounter Details Date Type Department Care Team (Late st Contact Info) Description 04/23/2021 Orders Only [facility] Interventional Radiology [address] [place] [phone] Jaqueline Rgoers MD [address] [place] [address] Social History Tobacco Use Types Packs/Day Years Used Date Smoking Tobacco: Former Smokeless Tobacco: Never Comments:: Alcohol Use Standard Drinks/Week Comments No 0 (1 standard drink = 0.6 oz pur e alcohol) Sex and Gender Information Value Date Recorded Sex Assigned at Male 10/20/2023 6:44 AM EST Legal Sex Male 7:50 AM EDT Gender Identity Not on file Sexual Orientation Not on file 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 Not on file Not on file Not on file documented as of this encounter Plan of Treatment Upcoming Encounters Date Type Department Care Team (Latest Contact Info) Description 01/19/2025 8:45 AM EDT Hospital Encounter [facility] Endoscopy [address] [place] [address] Soraida Atkins MD [address] [place] [address] 01/19/2025 8:45 AM EDT - 01/19/2025 9:30 AM EDT Surgery [facility] Endoscopy [address] [place], [place] [phone] Soraida Atkins MD [address] [place], [place] [phone] COLONOSCOPY, DIAGNOSTIC, WITH POSSIBLE MODERATE SEDATION [[id number] (CPT??)] 05/22/2025 10:00 AM EDT Follow-Up [facility] Liver Transplant Services [address] [place], [place] [phone] Soraida Atkins MD [address] [place] [address] [phone] Scheduled Procedures Name Priority Associated Diagnoses Date/Ti me COLONOSCOPY, DIAGNOSTIC, WITH POSSIBLE MODERATE SEDATION Liver transplant recipient (HCC) 01/19/2025 8:45 AM EDT documented as of this encounter Visit Diagnoses Not on filedocumented in this encounter Care Teams Key Sander Relationship Specialty Start Date End Date Shaun Bloom [address] [place] [phone] PCP - General Internal Medicine 03/07/18 documented as of this encounter
--- OUTSIDE RECORDS SUMMARY | 2025-01-09 09:43 | XMS_ITS | Encounter Summary ---
Author Organization [facility] Address [address] [place] [address] Care Team Providers Care Motor Vehicle Salesperson Name Role Phone Shaun Bloom Primary Care Provider + Encounter Details Date Type Department Care Team (Late st Contact Info) Description 11/23/2023 Orders Only [facility] Interventional Radiology [address] [place] [address] Dexter Landin DO [address] [place] [address] Social History Tobacco Use Types Packs/Day Years [...] Description 01/19/2025 8:45 AM EDT Hospital Encounter [facility] Endoscopy [address] [place] [address] Soraida Atkins MD [address] [place] [address] 01/19/2025 8:45 AM EDT - 01/19/2025 9:30 AM EDT Surgery [facility] Endoscopy [address] [place], [place] [phone] Soraida Atkins MD [address] [place], [place] [phone] COLONOSCOPY, DIAGNOSTIC, WITH POSSIBLE MODERATE SEDATION [[id number] (CPT??)] 05/22/2025 10:00 AM EDT Follow-Up [facility] Liver Transplant Services [address] [place], [place] [phone] Soraida Atkins MD [address] [place] [address] [phone] Scheduled Procedures Name Priority Associated Diagnoses Date/Ti me COLONOSCOPY, DIAGNOSTIC, WITH POSSIBLE MODERATE SEDATION Liver transplant recipient (HCC) 01/19/2025 8:45 AM EDT documented as of this encounter Visit Diagnoses Not on filedocumented in this encounter Care Teams Motor Vehicle Salesperson Relationship Specialty Start Date End Date Shaun Bloom [address] [place] [address] PCP - General Internal Medicine 03/07/18 documented as of this encounter
--- OUTSIDE RECORDS SUMMARY | 2025-01-09 09:43 | XMS_ITS | Clinical Summary ---
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 30 tablet 11 0 Active atorvastatin (LIPITOR) 80 mg tablet 0 Active TRUEplus Lancets lancet 33 gauge TEST BLOOD SUGAR THREE TIMES DAILY 0 Active aspirin 81 mg EC tablet Take 81 mg by mouth daily. 0 Active alcohol swabs (Alcohol Prep Pads) pads, medicated USE FIVE TIMES DAILY 150 each 11 1 Active Freestyle Lite test strips TEST BLOOD SUGAR THREE TIMES DAILY 100 strip 11 1 Active losartan (COZAAR) 25 mg tablet 1 Active Daily-Franca, with folic acid, tablet TAKE 1 TABLET BY MOUTH EVERY DAY 1 Active labetaloL (NORMODYNE) 300 mg tablet TAKE 1 TABLET BY MOUTH TWICE DAILY 1 Active blood glucose diagnostic (TRUEplus Lancets) lancet 33 gauge TEST BLOOD SUGAR THREE TIMES DAILY 100 each 11 2 Active insulin aspart (NovoLOG FLEXPEN) 100 unit/mL insulin pen INJECT 2 UNITS SUBCUTANEOUSLY BEFORE BREAKFAST, 5 UNITS BEFORE LUNCH, AND 3 UNITS BEFORE SUPPER 15 mL 2 Active insulin glargine (Lantus Solostar U-100 Insulin) 100 unit/mL (3 mL) insulin pen INJECT 24 UNITS SUBCUTANEOUSLY EVERY MORNING 15 mL 2 Active pen needle, diabetic (UltiCare Pen Needle) 31 gauge x 5/16 needle USE FIVE TIMES DAILY 150 each 11 2 Active metFORMIN ER (GLUCOPHAGE XR) 500 mg tablet TAKE 1 TABLET BY MOUTH TWICE DAILY WITH MEALS 60 tablet 2 2 Active ticagrelor (BRILINTA) 90 mg tablet Take 90 mg by mouth 2 times daily. Active NIFEdipine XL (PROCARDIA XL) 60 mg tablet Take 60 mg by mouth daily. 3 Active vitamin D3 25 mcg (1,000 unit) capsule Take 1,000 Units by mouth. 2 Active hydrALAZINE (APRESOLINE) 25 mg tablet SMARTSI Tablet(s) By Mouth Twice Daily Active polyethylene glycol (GoLYTELY) solutionIndica tions:Colon cancer screening Take according to instructions provided by physician. OK to substitute 4000 mL 4 Active omeprazole (PriLOSEC) 20 mg capsuleIndicat ions:Liver transplant recipient (HCC) TAKE 1 CAPSULE BY MOUTH EVERY MORNING 90 capsule 3 4 Active senna 8.6 mg tabletIndicati ons:Liver transplant recipient (HCC) TAKE 2 TABLETS BY MOUTH EVERY DAY AT BEDTIME 60 tablet 11 4 Active Stool Softener 100 mg capsuleIndicat ions:Liver transplant recipient (HCC) TAKE 1 CAPSULE BY MOUTH TWICE DAILY IN THE MORNING AND IN THE EVENING 60 capsule 11 4 Active tacrolimus (PROGRAF) 1 mg capsuleIndicat ions:Liver replaced by transplant (HCC) TAKE 2 CAPSULES BY MOUTH ONCE DAILY IN THE MORNING WITH BREAKFAST and TAKE 1 CAPSULE BY MOUTH EVERY EVENING WITH DINNER 90 capsule 11 4 Active Active Problems Patient Care Coordination No te Formatting of this note is d ifferent from the original. 67M hx genotype 1 HCV cirrhosis c/b HCC (5.5 cm segment 6, 1.5 cm segment 5/6) s/p TACE x2 (08/2010, 11/2010) and radiofrequency ablation 01/2012 and SBRT 03/2012 who presents for OTLT 02/02/18. Intraop, pt received 1 u prbcs, 1 u ffp, 2.5L crystalloid, UOP 350 cc, EBL 3.0L. Pt arrived to [facility] intubated. ? PMH: Genotype 1 HCV cirrhosis, HCC, s/pTACE x2, RFA x1, and SBRT, cirrhosis, hypertension and diabetes. ?? PSH: s/p TACE x2 Meds: glipizide 5 qd, hctz 25 qd, metformin XR 500 mg 2 tab qhs, nadolol 40 qd, simvastatin 20 mg qd, metformin 500 qd ALL: NKDA SH: Nondrinker, nonsmoker, sober for 20 years. Originally immigrated from [place], lives in [place]. He last used drugs including heroin, cocaine and marijuana over 20 years ago. He quit smoking cigarettes in 2010. He states an ongoing commitment to staying clean and sober. ? FH: Denies any history of bleeding, clotting or malignancies. Problem Noted Date Diagnosed Date Long-term insulin use 10/04/2019 Assessment & Plan (10/04/2019 9:59 AM EST): On high risk therapy with insulin for labile BGs and hypoglycemia Immunosuppression 03/09/2018 Hyperkalemia 03/07/2018 Elevated LFTs 02/23/2018 Liver enzyme elevation 02/23/2018 Pleural effusion associated with hepatic disorde r 02/11/2018 Hypotension, unspecified 02/06/2018 Hypovolemia 02/06/2018 Acute kidney injury 02/03/2018 Chronic liver failure without hepatic coma 02/02 Overview (02/02/2018): Added automatically from request for surgery [id number] S/P liver transplant 02/02/2018 Overview (02/03/2018): Added automatically from request for surgery [id number] Assessment & Plan (12/21/2018 10:05 AM EDT): Avoid hepatotoxic meds for DM care Obesity 09/17/2016 Type 2 diabetes mellitus 10/27/2011 Assessment & Plan (10/04/2019 9:56 AM EST): Diabetes with microvascular complications Controlled in a setting of LT for HCC stable for LT, pending [address] abdomen/pelvis 11/2019 Pt is at risk for DM complications, included but not limited to retinopathy, neuropathy and nephropathy, the patient is also at risk for CV event. 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 The patient reminded to bring glucometer on next visit. Prevention and treatment of hypoglycemia. Prevention and treatment of hypoglycemia was discussed. Foot Care. Discussed proper foot care and foot wear. Encouraged to wear protective foot coverings and perform daily foot exam. Please find orders and patient instructions details in my progress note. Briefly: taper insulin doses Discussed the use of metformin in the future, due to relatively safe profile for pts with LT His creatinine is stable If his next CT abd/pelv is stable and no rebound hypoglycemia after insulin taper I consider metformin to add to his therapy Assessment & Plan (12/21/2018 10:03 AM EDT): Diabetes with microvascular complications Controlled in a setting of liver transplant Pt is at risk for DM complications, included but not limited to retinopathy, neuropathy and nephropathy, the patient is also at risk for CV event. Pt appears motivated now to be compliant with medication and lifestyle modifications: healthier food choices home glucose monitoring emphasized, use and side effects of insulin is taught, glycohemoglobin and other lab monitoring discussed and senior living diabetic complications discussed Glucose monitoring. The patient reminded to bring glucometer on next visit. Prevention and treatment of hypoglycemia. Prevention and treatment of hypoglycemia was discussed. Foot Care. Discussed proper foot care and foot wear. Encouraged to wear protective foot coverings and perform daily foot exam. Please find orders and patient instructions details in my progress note. Briefly: On high risk therapy with insulin for labile BGs and hypoglycemia Taper insulins to avoid hypoglycemia monitor closely Assessment & Plan (03/03/2018 1:48 PM EDT): Diabetes with microvascular complications Uncontrolled complex case in a setting of graft Tx and CRD Poor candidate for oral agents at this point Pt is at highrisk for DM complications, included but not limited to retinopathy, neuropathy and nephropathy, the patient is also athigh risk for CV event. Pt appears motivated now to be compliant with medication and lifestyle modifications: healthier food choices home glucose monitoring emphasized, all medications, side effects and compliance discussed carefully, use and side effects of insulin is taught and glycohemoglobin and other lab monitoring discussed Glucose monitoring. The patient reminded to bring glucometer on next visit. Prevention and treatment of hypoglycemia. Prevention and treatment of hypoglycemia was discussed. Foot Care. Discussed proper foot care and foot wear. Encouraged to wear protective foot coverings and perform daily foot exam. Please find orders and patient instructions details in my progress note. Briefly: add prandial coverage No changes in ISF No changes in NPH Assessment & Plan (02/02/2018 3:05 PM EDT): Pt is a type 2 DM at baseline on glipizide and metformin - ICU glycemic protocol - hold home glipizide and metformin - NPO - monitor FSBG - monitor for steroid associated hyperglycemia Hypertension 10/27/2011 Assessment & Plan (10/04/2019 9:58 AM EST): Blood pressure today is not within target. Will be monitored Assessment & Plan (12/21/2018 10:05 AM EDT): Blood Pressure: Blood pressure today is within target. Urine Microalbumin will be checked Treatment recommendations: Continue current Rx The patient will be monitored Assessment & Plan (02/02/2018 3:06 PM EDT): Pt is hypertensive at baseline on lisinopril, HCTZ at home - hold home lisinopril and HCTZ - keep a line, will monitor BP - wean pressors as able--> pt was on phenylephrine postop Hyperlipidemia 10/27/2011 Assessment & Plan (10/04/2019 9:59 AM EST): LT 2018 Not on statins Chronic hepatitis C 10/23/2010 Carcinoma of liver, hepatocellular 10/23/2010 Assessment & Plan (11/19/2017 12:00 PM EDT): Shaji Ramirez was diagnosed with stage I hepatocellular carcinoma, initial lesions measured 5.5cm and 1.5cm both radiographically consistent with HCC on imaging done 07/28/10. Lesions treated with TACE x2, RFA, and SBRT, last tumor therapy was SBRT completed 04/2012. Follow-up imaging has shown no evidence of recurrence at treated site, no new liver lesions. Most recent surveillance imaging was done with [address] Scan on 11/10/17 and demonstrates no recurrence or no new lesions. I have carefully reviewed these results with Shaji Ramirez and reassured him of the good news. I reiterated that due to the underlying cirrhosis, he remains at a higher risk for disease recurrence and for developing new lesions, and understands the need for continued surveillance with imaging every 3 months. He has been listed for liver transplant, currently listed with 28 MELD exception points, ABO O. We reviewed the MELD exception point schedule and he understands he will be eligible for 30 exception points 12/12/17. He was reminded to keep his cell phone on him at all times. Assessment & Plan (08/17/2017 10:37 AM EST): Shaji Ramirez was diagnosed with hepatocellular carcinoma, initially outside Néstor criteria with 2 liver lesions measuring 5.5cm and 1.5cm, both radiographically consistent with HCC on imaging done in 2009. Lesions treated with TACE x2, RFA, and completed SBRT 04/2012. Follow-up imaging has shown no evidence of recurrence at treated site, no new liver lesions. Most recent surveillance imaging was done with [address] Scan on 07/22/17 and demonstrates stable post treatment changes in segment 7 with no evidence of recurrence, residual, or new lesions. I have carefully reviewed these results with Shaji Ramirez and reassured him of the good news. I reiterated that due to the underlying cirrhosis, he remains at a higher risk for disease recurrence and for developing new lesions, and understands the need for continued surveillance with imaging every 3 months. He has been listed for liver transplant, currently listed at lab MELD of 8, ABO O. We have previously petitioned the [facility] for exception points on multiple occasions but have been denied because they had no policy for downstaging. This month, a new policy for downstaging was implemented within [facility] and we will petition for MELD exception points. I reviewed the MELD exception point schedule with Shaji and he was happy to hear he may finally qualify for additional points on the waitlist. Resolved Problems Problem Noted Date Diagnosed Date Resolved Date Delirium 02/11/2018 02/18/2018 Encephalopathy 02/11/2018 02/18/2018 Anemia associated with acute blood loss 02/06/2018 02/18/2018 Acute renal failure (ARF) 02/04/2018 Hypervolemia 02/04/2018 03/18/2018 Transaminitis 02/03/2018 02/18/2018 Coagulopathy 02/03/2018 02/18/2018 Lactic acidosis 02/03/2018 02/18/2018 Acute pain 02/02/2018 02/18/2018 Overview (02/02/2018): S/p OTLT - continue fentanyl for pain control - once pt is extubated, can start po meds via NGT Acute respiratory failure with hypoxia 02/02/2018 02/18/2018 Overview (02/02/2018): Intubated postoperatively Stress hyperglycemia 02/02/2018 018 Overview (02/02/2018): - ICU glycemic protocol - Pt is on methylprednisone taper Hepatic cirrhosis 11/14/2015 02/18/2018 Assessment & Plan (02/02/2018 3:04 PM EDT): S/p OTLT 02/02/18 for HCV cirrhosis c/b HCC - PPx: prograf, methylprednisone taper, cellcept - Received: - JPx3 to bulb suction Assessment & Plan (11/19/2017 11:59 AM EDT): Shaji Ramirez has a history of cirrhosis related to Hepatitis C. His Hep C is treatment naive. We have discussed on multiple occasions holding off on treating Hep C until liver transplant, which he continues to agree to. His cirrhosis is well compensated, no history of any major decompensations. MELD-Na score: 8 at 11/04/2017 9:35 AM MELD score: 8 at 11/04/2017 9:35 AM Calculated from: Serum Creatinine: 0.94 mg/dL (Rounded to 1) at 11/04/2017 9:35 AM Serum Sodium: 139 mmol/L (Rounded to 137) at 11/04/2017 9:35 AM Total Bilirubin: 1.0 mg/dL at 11/04/2017 9:35 AM INR(ratio): 1.2 at 11/04/2017 9:35 AM Age: 67 years Will continue to follow with hepatology, be closely monitored with routine blood work every 3 months. Again, he is listed for liver transplant for his history of HCC with 28 MELD exception points. Assessment & Plan (08/17/2017 10:39 AM EST): Shaji Ramirez has a history of cirrhosis related to Hepatitis C, treatment naive. We have held off on treating his Hep C due to his status on the waitlist and have discussed holding off on Hep C treatment until after his liver transplant, which he wishes to do. His cirrhosis is well compensated and he has no major decompensations. MELD-Na score: 8 at 07/14/2017 10:15 AM MELD score: 8 at 07/14/2017 10:15 AM Calculated from: Serum Creatinine: 0.99 mg/dL (Rounded to 1) at 07/14/2017 10:15 AM Serum Sodium: 142 mmol/L (Rounded to 137) at 07/14/2017 10:15 AM Total Bilirubin: 0.8 mg/dL (Rounded to 1) at 07/14/2017 10:15 AM INR(ratio): 1.2 at 07/14/2017 10:15 AM Age: 66 years Will continue to follow with hepatology, be closely monitored with routine blood work every 3 months. Awaiting organ transplant 12/24/2011 Immunizations Immunization Administration Dates Next Due Covid-19 Monovalent Vaccine, Moderna, mRNA, PF 05/01/2021 Haemophilus Influenzae Type B Vaccine, PRP-OMP Conjugate 10/23/2010 Hepatitis A Vaccine, Adult Dosage 08/02/2002, Hepatitis B adult (ENGERIX-B /RECOMBIVAX HB ADULT) vaccine 1 mL IM 10/23/2010 INFLUENZA, SPLIT VIRUS, TRIVALENT, PF 07/06/2006 ,09/03/2005,06/14/2001 Pneumococcal Polysaccharide Vaccine, 23 Valent 10/23/2010,10/29/2005,07/01/2001 Tetanus Toxoid, Reduced Diph theria Toxoid, and Acellular Pertussis Vaccine, Adsorbed 10/23/2010 Tetanus and Diphtheria Toxoi ds, Adsorbed, Preservative Free (2 Lf of Tetanus Toxoid and 2 Lf of Diphtheria Toxoid) 10/29/2005 Tuberculin Skin Test; Purifi ed Protein Derivative Solution, Intradermal 08/04/2010 Social History Tobacco Use Types Packs/Day Years Used Date Smoking Tobacco: Former Smokeless Tobacco: Never Tobacco Cessation:Counseling Given: Not Answered Comments:: Alcohol Use Standard Drinks/Week Comments No [...] file Not on file Not on file Last Filed Vital Signs Vital Sign Reading Time Taken Comments Blood Pressure 149/73 05/23/2024 8:47 AM EDT Pulse 85 05/23/2024 8:47 AM EDT Temperature 36.1 ??C (97 ??F) 05/23/2024 8:47 AM EDT Respiratory Rate 20 05/23/2024 8:47 AM EDT Oxygen Saturation 99% 05/23/2024 8:47 AM EDT Inhaled Oxygen Concentration - - Weight 72 kg (158 lb 11.7 oz) 05/23/2024 8:47 AM EDT Height 167.6 cm (5' 6 ) 10/14/2021 11:09 AM EST Body Mass Index 25.62 10/14/2021 11:09 AM EST Plan of Treatment Upcoming Encounters Date Type Department Care Team (Latest Contact Info) Description 01/19/2025 8:45 AM EDT Hospital Encounter [facility] [address] [place] [address] Soraida Atkins MD [address] [place] [address] 01/19/2025 8:45 AM EDT - 01/19/2025 9:30 AM EDT Surgery [facility] [address] [place] [address] Soraida Atkins MD [address] [place] [address] COLONOSCOPY, DIAGNOSTIC, WITH POSSIBLE MODERATE SEDATION [53098 (CPT??)] 05/22/2025 10:00 AM EDT Follow-Up [facility] Liver Transplant Services [address], [place] [id number] Soraida Atkins MD [address] [place] [address] Scheduled Procedures Name Priority Associated Diagnoses Date/Ti me COLONOSCOPY, DIAGNOSTIC, WITH POSSIBLE MODERATE SEDATION Liver transplant recipient (HCC) 01/19/2025 8:45 AM EDT Health Maintenance Due Date Last Done Comments Cologuard 1950 FOBT / Fit Test 1950 Sigmoidoscopy 1950 Medicare AWV 11/04/1951 Ophthalmology Exam 1960 Zoster Vaccines (1 of 2) 1969 RSV Vaccine (60+ years old a nd patients) (1 - Risk 60-74 years 1-dose series) 2010 Hepatitis B Vaccines (2 of 3 - Risk 3-dose series) 11/20/2010 10/23/2010 Pneumococcal Vaccine: 50+ Ye ars (4 of 4 - PCV20 or PCV21) 07/28/2021 07/28/2016, 08/03/2011, 10/23/2010, Additional history exists Urine Microalbumin 05/25/2023 05/25/2022, 1 , 08/21/2021, Additional history exists COVID-19 Vaccine (4 - 2023-2 5 season) 2024 05/01/2021, 11/20/2020, 10/23/2020 Alcohol/Substance Use Screening 08/23/2024 Depression Screening and Follow-Up 08/23/2024 Health Care Proxy Review 08/23/2024 Social Drivers of Health Laura ual Screening 08/23/2024 Basic Metabolic Panel 09/27/2024 09/27/2023 , 06/02/2022, 05/25/2022, Additional history exists Hemoglobin A1C 01/30/2025 08/01/2024, 06/0 10/2023, 08/26/2023, Additional history exists CT Lung Cancer Screening (Baseline) 03/02/2025 03/02/2024, 07/29/2022, 04/23/2021, Additional history exists Influenza Vaccine (Season Ended) 2025 09/23/2017, 05/07/2016, 05/17/2015, Additional history exists DTaP,Tdap,and Td Vaccines (3 - Td or Tdap) 05/07/2026 05/07/2016, 10/23/2010, 10/29/2005 Colon Cancer Screening 11/09/2032 Colonoscopy 11/09/2032 11/09/2022, 10/22, 11/09/2022, Additional history exists Abdominal Aortic Aneurysm (A AA) Screening Completed 06/20/2019, 02/11/2018, 02/05/2018 CT Lung Cancer Screening (12 months, previous LungRADS 1 or 2) Discontinued 03/02/2024, 07/29/20, 04/23/2021, Additional history exists Goals Goal Patient Goal Type Associated Problems Recent Progress Patient-Stated? Author Autogenera bry Goal Care Plan Autogenerated Problem No Optime Background User Procedures * Due to [place] [employer] law, this organization might not be sharing negative HIV tests. Procedure Name Priority Date/Time Associated Diagnosis Comments CT CHEST W CONTRAST Routine 03/02/2024 1 0:40 AM EDT History of liver cancer COLONOSCOPY 11/09/2022 COMPREHENSIVE METABOLIC PANEL Routine 06/02/2022 9:55 AM EDT History of liver transplant MICROALBUMIN, RANDOM URINE, OUTSIDE LAB Routine 04/25/2020 POCT GLYCOSYLATED HEMOGLOBIN (HGB A1C) Routine 04/23/2020 8:[address] 3 PHASE ABDOMEN Routine 06/20/2019 4: 22 PM EDT HCC (hepatocellular carcinoma) History of liver transplant from Last 3 Months or Most Recently Relevant to Health Maintenance Results * Due to [place] [employer] law, this organization might not be sharing negative HIV tests. * CT Chest W Contrast (03/02/2024 10:40 AM EDT) Anatomical Region Laterality Modality Body Computed Tomogra phy 03/02/2024 11:4 8 AM EDT Impressions 03/17/2024 11:17 AM EDT 1. ??No convincing evidence of metastatic disease in the chest. I, Saritha Mcgee, have reviewed the examination and concur with the findings as reported or so edited. Trainee: ??Ketty Davenport If this radiology report contains a blank impression section, it is an incomplete radiology report. ??Please contact the interpreting radiologist or applicable radiology division as soon as possible to obtain the completed interpretation. ? Workstation ID: [id number] Up-to-date CT equipment and radiation dose reduction techniques were employed. CTDIvol: 3.0 - 15.1 mGy. DLP: 1188 mGy-cm. ??The following accession numbers are related to this dose report [id number]: [id number] Narrative 03/17/2024 11:[address] CHEST W CONTRAST Indication: ??HCC surveillance Z85.05 - I10 - Personal history of malignant neoplasm of liver Technique: Examination was performed of the chest following the intravenous administration of intravenous contrast material. Axial, coronal and sagittal MPRs, axial MIP and coronal MinIP reformations were performed. Dose: For radiation dose control at least one of the following techniques was used in this procedure (1) Automated exposure control (2) Adjustment of the mA and/or kV according to patient size (3) Use of iterative reconstruction technique. Comparison: CT chest 07/29/2022. FINDINGS: Neck and thoracic inlet: Unremarkable, no thyromegaly. MEDIASTINUM AND LARGE VESSELS: ? Aorta Normal aortic diameter. Mild calcified atherosclerotic plaque. Pulmonary arteries Unremarkable shape and diameter. ??No acute central pulmonary embolism. Esophagus Nondilated. Other mediastinal findings No other abnormal mediastinal findings are present. HEART: Cardiac size Normal cardiac size and morphology. Coronary arteries Moderate coronary calcifications. Valves No valvular calcifications. Pericardium No pericardial effusion. LYMPH NODES: Supraclavicular and axillary Normal sized lymph nodes, no enlarged lymph nodes. Mediastinal Normal sized lymph nodes, no enlarged lymph nodes. Hilar Normal sized lymph nodes, no enlarged lymph nodes. Others None. LUNG PARENCHYMA: No suspicious pulmonary nodule. ??Calcified granulomas in the right lung. ??Subsegmental right lower lobe atelectasis, similar to 2021. Airways: Unremarkable. Pleura: No pleural effusion, thickening, or pneumothorax. UPPER ABDOMEN: See report from concurrently performed CT abdomen and pelvis 03/02/2024. CHEST WALL AND BONES: Unremarkable chest wall. ??Mild multilevel disc degeneration, normal thoracic vertebral body heights. Resulting Agency Comment [id number] Procedure Note Saritha Mcgee MD - 03/17/2024 CT CHEST W CONTRAST Indication: HCC surveillance Z85.05 - I10 - Personal history of malignantneoplasm of liver Technique: Examination was performed of the chest following theintravenous administration of intravenous contrast material. Axial,coronal and sagittal MPRs, axial MIP and coronal MinIP reformations wereperformed. Dose: For radiation dose control at least one of the following techniqueswas used in this procedure (1) Automated exposure control (2) Adjustmentof the mA and/or kV according to patient size (3) Use of iterativereconstruction technique. Comparison: CT chest 07/29/2022. FINDINGS: Neck and thoracic inlet: Unremarkable, no thyromegaly. MEDIASTINUM AND LARGE VESSELS: Aorta Normal aortic diameter. Mild calcified atherosclerotic plaque. Pulmonary arteries Unremarkable shape and diameter. No acute central pulmonary embolism. Esophagus Nondilated. Other mediastinal findings No other abnormal mediastinal findings are present. HEART: Cardiac size Normal cardiac size and morphology. Coronary arteries Moderate coronary calcifications. Valves No valvular calcifications. Pericardium No pericardial effusion. LYMPH NODES: Supraclavicular and axillary Normal sized lymph nodes, no enlarged lymph nodes. Mediastinal Normal sized lymph nodes, no enlarged lymph nodes. Hilar Normal sized lymph nodes, no enlarged lymph nodes. Others None. LUNG PARENCHYMA: No suspicious pulmonary nodule. Calcified granulomas in the right lung.Subsegmental right lower lobe atelectasis, similar to 2021. Airways: Unremarkable. Pleura: No pleural effusion, thickening, or pneumothorax. UPPER ABDOMEN: See report from concurrently performed CT abdomen and pelvis 03/02/2024. CHEST WALL AND BONES: Unremarkable chest wall. Mild multilevel disc degeneration, normalthoracic vertebral body heights. IMPRESSION: 1. No convincing evidence of metastatic disease in the chest. I, Saritha Mcgee, have reviewed the examination and concur with thefindings as reported or so edited. Trainee: Ketty Davenport If this radiology report contains a blank impression section, it is anincomplete radiology report. Please contact the interpreting radiologistor applicable radiology division as soon as possible to obtain thecompleted interpretation. Workstation ID: [id number] Up-to-date CT equipment and radiation dose reduction techniques wereemployed. CTDIvol: 3.0 - 15.1 mGy. DLP: 1188 mGy-cm. The followingaccession numbers are related to this dose report [id number]: [id number] us Soraida Atkins MD IMG CT PROCEDURES Final Resu lt * COLONOSCOPY (11/09/2022) Narrative Procedure Note Soraida Atkins MD - 11/09/2022 8:28 AM EDT [facility] Gastroenterology Patient Name: Shaji Ramirez Procedure Date: 11/09/2022 8:28 AM Date of : 1950 Admit Type: Ambulatory Age: 72 Room: [place] [address] Gender: Male Note Status: Finalized Attending MD: Soraida Atkins MD Procedure: Colonoscopy Indications: High risk colon cancer surveillance: Personal history of colonicpolyps Comorbidities Providers: Soraida Atkins MD Referring MD: Requesting Provider: Medicines: Monitored Anesthesia Care Complications: No immediate complications. Estimated Blood Loss: Estimated blood loss was minimal. Procedure: After I obtained informed consent, the scope was passed under direct vision. Throughout theprocedure, the patient's blood pressure, pulse, and oxygen saturations were monitored continuously. The Colonoscope was introduced through the anus and advanced to the ascending colon. The colonoscopywas performed without difficulty. The patient tolerated the procedure well. The quality of the bowel preparation was inadequate. Findings: Hemorrhoids were found on perianal exam. Evidence of mild melanosis coli was found in the entire colon. A large amount of semi-liquid stool found throughout entire colon,most prominent in ascending and sigmoid colon, interfering with visualization. Lavage was performed using sterile water, resulting in incomplete clearance particularly in right colon. A 5 mm polyp was found in the sigmoid colon. The polyp was sessile.The polyp was removed with cold snare. Resection and retrieval were complete. Verification of patient identification for the specimen was done. Estimated blood loss was minimal. Non-bleeding internal hemorrhoids were found on antegrade view. Retroflexion not able to be performed due to narrowed rectal canal.The hemorrhoids were medium-sized. Impression: - Preparation of the colon was inadequate, particularly in sigmoid and ascending colon with inability to view cecum. - Melanosis in the colon. - One 5 mm polyp in the sigmoid colon, removed witha cold snare. Resected and retrieved. - Non-bleeding internal hemorrhoids. Recommendation: - Discharge patient to home. - Resume previous diet. - Continue present medications. - Await pathology results. - Repeat colonoscopy with 2-day Golytely prep atthe next available appointment because the bowel preparation was poor (patient reported eating ricethe day of prep). - Return to referring physician as previously scheduled. Wilbert Quigley MD Soraida Atkins MD 11/09/2022 10:32:00 AM Number of Addenda: 0 Note Initiated On: 11/09/2022 8:28 AM us Soraida Atkins MD PROVATION PROCEDURES Final R esult * (ABNORMAL) Comprehensive Metabolic Panel (06/02/2022 9:55 AM EDT) NA 139 135 - 145 mmol/L 06/02/2022 10:42 AM EDT [facility] K 4.9 3.5 - 5.3 mmol/L 06/02/2022 10:42 AM EDT [facility] Cl 102 97 - 110 mmol/L 06/02/2022 10:42 AM EDT [facility] CO2 30 24 - 32 mmol/L 06/02/2022 10:42 AM EDT [facility] Anion Gap 7 5 - 15 06/02/2022 10:42 AM EDT [facility] Glucose 117(H) 70 - 99 mg/dL 06/02/2022 10:42 AM EDT [facility] Creatinine 1.45(H) 0.60 - 1.30 mg/dL 06/02/2022 10:42 AM EDT [facility] Calcium 9.3 8.7 - 10.7 mg/dL 06/02/2022 10:42 AM EDT [facility] Total Protein 7.2 6.0 - 8.0 g/dL 06/02/2022 10:42 AM EDT [facility] Albumin 4.5 3.5 - 4.8 g/dL 06/02/2022 10:42 AM EDT [facility] Bilirubin, Total 0.8 0.3 - 1.2 mg/dL 06/02/2022 10:42 AM EDT [facility] Alkaline Phosphatase 60 30 - 115 U/L 06/02/2022 10:42 AM EDT [facility] AST 16 10 - 40 U/L 06/02/2022 10:42 AM EDT [facility] ALT 12 10 - 40 U/L 06/02/2022 10:42 AM EDT [facility] BUN 21 7 - 23 mg/dL 06/02/2022 10:42 AM EDT [facility] eGFR 52(L) >=90 mL/min/1. 73m2 06/02/2022 10:42 AM EDT [facility] Comment: Estimated Glomerular Filtration Rate (GFR) calculated using the CKD-EPI refit equation. The different stages of CKD form a continuum. The stages of CKD are classified as follows : Stage 1: Kidney damage with normal or increased GFR (>90 mL/min/1.73 m2) Stage 2: Mild reduction in GFR (60-89 mL/min/1.73 m2) Stage 3a: Moderate reduction in GFR (45-59 mL/min/1.73 m2) Stage 3b: Moderate reduction in GFR (30-44 mL/min/1.73 m2) Stage 4: Severe reduction in GFR (15-29 mL/min/1.73 m2) Stage 5: Kidney failure (GFR < 15 mL/min/1.73 m2 or dialysis) Blood Structure of peripheral vein / Unknown Venipuncture / Unknown 06/02/2022 9:55 AM EDT 06/02/2022 10:15 AM EDT [facility] - 06/02/2022 10:42 AM EDT STANDING ORDER EVERY 8 WEEKS FAX RESULT TO [phone] STANDING ORDER EVERY 8 WEEKS FAX RESULT TO [phone] STANDING ORDER EVERY 8 WEEKS FAX RESULT TO [phone] Soraida Atkins MD LAB BLOOD ORDERABLES Final R esult [facility] [address] [place] [address], [place] * Microalbumin, Random Urine, Outside Lab (04/25/2020) Creatinine Urine, Outside Lab 524 Microalbumin, Random Urine 820.0 Microalbumin/Cre atinine Random Urine 156.4 Urine Catheter / Unknown 04/25/2020 us Unknown Provider LAB URINE ORDERABLES Final R esult * (ABNORMAL) POCT Glycosylated Hemoglobin (HGB A1C), interfaced (04/23/2020 8:20 AM EDT) Hemoglobin A1C, POCT 6.1(H) <=5.6 % 04/23/2020 8:26 AM EDT [facility] Comment: A1C Recommendation for Non- Adults with Diabetes: <7.0% ADA 2011 Standards of Medical Care in Diabetes Blood 04/23/2020 8:20 AM EDT 04/23/2020 8:25 AM EDT us Jeanine Mar MD LAB POCT ORDERABLES - DEVICE Fin al Result Performing Organization Address City/[facility]/ZIP Co de Phone Number [facility] [address] [place] [address], [place] * CT 3 Phase Abdomen (06/20/2019 4:22 PM EDT) Anatomical Region Laterality Modality Liver Computed Tomogra phy 06/21/2019 8:06 AM EDT Impressions 06/21/2019 10:45 AM EDT Status post liver transplant without evidence of recurrent or metastatic disease in the abdomen. Patent hepatic vasculature without focal liver lesion. IJasson, have reviewed the examination and concur with the findings as reported or so edited. Resident/Fellow:Kirit De La Garza, [facility],PhD [id number] Narrative 06/21/2019 10:45 AM EDT EXAMINATION: CT 3 PHASE ABDOMEN INDICATION: 68 yr old male history of hepatocellular carcinoma s/p liver transplant please evaluate for recurrent hepatocellular carcinoma. TECHNIQUE: Helical images of the abdomen and pelvis were obtained after the administration of intravenous contrast. Images were obtained in the arterial, portal venous, and delayed phases. Multiplanar reformats were created. For radiation dose control at least one of the following techniques was used in this procedure: (1) Automated exposure control (2) Adjustment of the mA and/or kV according to patient size (3) Use of iterative reconstruction technique. COMPARISON: CT 4-phase liver 02/10/2019. ?? FINDINGS: LOWER THORAX: For findings in the chest, please refer to the separately dictated chest CT report under a separate accession number.. HEPATOBILIARY: The patient is status post liver transplant. No focal hepatic lesion. The gallbladder is surgically absent. No biliary ductal dilatation. SPLEEN: No splenomegaly or focal lesions are identified. PANCREAS: No focal masses or ductal dilatation. ADRENALS: No adrenal nodules. KIDNEYS/URETERS: Punctate calcification in the lower pole of the right kidney. There is 4 mm calculus in the lower pole of the left kidney. No hydronephrosis or solid lesions. Unchanged subcentimeter exophytic hypodensity in the upper pole of the left kidney, likely a cyst. PERITONEUM / RETROPERITONEUM: No free air or fluid. LYMPH NODES: No lymphadenopathy. VESSELS: The hepatic vasculature is patent. Moderate atherosclerotic changes of the abdominal aorta. Retroaortic left renal vein is seen. GI TRACT: No distention or wall thickening. BONES AND SOFT TISSUES: Redemonstrated focal sclerosis of right pedicle of L2 consistent with bone island. No suspicious lytic or sclerotic bony lesions seen. Procedure Note Jasson Iglesias MD - 06/21/2019 EXAMINATION: CT 3 PHASE ABDOMEN INDICATION: 68 yr old male history of hepatocellular carcinoma s/p livertransplant please evaluate for recurrent hepatocellular carcinoma. TECHNIQUE: Helical images of the abdomen and pelvis were obtained afterthe administration of intravenous contrast. Images were obtained in thearterial, portal venous, and delayed phases. Multiplanar reformats werecreated. For radiation dose control at least one of the followingtechniques was used in this procedure: (1) Automated exposure control (2)Adjustment of the mA and/or kV according to patient size (3) Use ofiterative reconstruction technique. COMPARISON: CT 4-phase liver 02/10/2019. FINDINGS: LOWER THORAX: For findings in the chest, please refer to the separatelydictated chest CT report under a separate accession number.. HEPATOBILIARY: The patient is status post liver transplant. No focalhepatic lesion. The gallbladder is surgically absent. No biliary ductaldilatation. SPLEEN: No splenomegaly or focal lesions are identified. PANCREAS: No focal masses or ductal dilatation. ADRENALS: No adrenal nodules. KIDNEYS/URETERS: Punctate calcification in the lower pole of the rightkidney. There is 4 mm calculus in the lower pole of the left kidney. Nohydronephrosis or solid lesions. Unchanged subcentimeter exophytichypodensity in the upper pole of the left kidney, likely a cyst. PERITONEUM / RETROPERITONEUM: No free air or fluid. LYMPH NODES: No lymphadenopathy. VESSELS: The hepatic vasculature is patent. Moderate atheroscleroticchanges of the abdominal aorta. Retroaortic left renal vein is seen. GI TRACT: No distention or wall thickening. BONES AND SOFT TISSUES: Redemonstrated focal sclerosis of right pedicle ofL2 consistent with bone island. No suspicious lytic or sclerotic bonylesions seen. IMPRESSION: Status post liver transplant without evidence of recurrent or metastaticdisease in the abdomen. Patent hepatic vasculature without focal liverlesion. IJasson, have reviewed the examination and concur with thefindings as reported or so edited. Resident/Fellow:Kirit De La Garza, [facility],PhD [id number] Yen Castro MD IMG CT PROCEDURES Final R esult from Last 3 Months or Most Recently Relevant to Health Maintenance Additional Health Concerns Active Problems Noted Date Diagnosed Date Autogenerated Problem 12/29/2024 Insurance MEDICARE Member Subscriber Plan / Payer (Ef fective 1992-Present) Name:Shaji Ramirez Member ID:[id number] Relation to Subscriber:Self Name:Shaji Ramirez Subscriber ID:[id number] Payer ID:[id number] Group ID:Not on file Type:Not on file Address: [address] MEDICARE Member Subscriber Plan / Payer (Ef fective 1992-Present) Name:Shaji Ramirez Member ID:[id number] Relation to Subscriber:Self Name:Shaji Ramirez Subscriber ID:[id number] Payer ID:[id number] Group ID:Not on file Type:Not on file Address: [address] MEDICARE [facility] Advance Directives Documents on File Type Date Recorded Patient Hand Turner Expl anation Advance Directive 07/28/2011 12:00 AM sf M edical Dec Making (Adv.Dir) Advance Directive 10/21/2010 12:00 AM Advan ce Care Directives * Full Code (Latest Code Status on File) Date Activated Date Inactivated Comments 11/09/2022 8:49 AM 11/09/2022 1:53 PM * Full Code Date Activated Date Inactivated Comments 02/02/2018 4:29 PM 02/18/2018 6:45 PM * Full Code Date Activated Date Inactivated Comments 02/02/2018 6:37 AM 02/02/2018 4:29 PM * Full Code Date Activated Date Inactivated Comments 02/02/2018 6:26 AM 02/02/2018 6:37 AM Care Teams Assistant Basketball Coach Relationship Specialty Start Date End Date Shaun Bloom [address] [place] [address] PCP - General Internal Medicine 03/07/18
--- OUTSIDE RECORDS SUMMARY | 2025-01-09 09:43 | XMS_ITS | Encounter Summary ---
Author Organization [facility] Address [address] [place] [address] Care Team Providers Care Commercial Carpet Installer Name Role Phone Shaun Bloom Primary Care Provider + Encounter Details Date Type Department Care Team (Late st Contact Info) Description 06/12/2023 Orders Only [facility] CT Scan [address] [place], [place] [id number] Hubert Tovar MD PhD [address] [place], [place] [phone] Social History Tobacco Use Types Packs/Day Years [...] Description 01/19/2025 8:45 AM EDT Hospital Encounter [facility] Endoscopy [address] [place], [place] [phone] Soraida Atkins MD [address] [place], [place] [phone] 01/19/2025 8:45 AM EDT - 01/19/2025 9:30 AM EDT Surgery [facility] [address] [place], [place] [phone] Soraida Atkins MD [address] [place], [place] [phone] COLONOSCOPY, DIAGNOSTIC, WITH POSSIBLE MODERATE SEDATION [48961 (CPT??)] 05/22/2025 10:00 AM EDT Follow-Up [facility] Transplant Services [address] [place], [place] [phone] Soraida Atkins MD [address] [place] [address] Scheduled Procedures Name Priority Associated Diagnoses Date/Ti me COLONOSCOPY, DIAGNOSTIC, WITH POSSIBLE MODERATE SEDATION Liver transplant recipient (HCC) 01/19/2025 8:45 AM EDT documented as of this encounter Visit Diagnoses Not on filedocumented in this encounter Care Teams Commercial Carpet Installer Relationship Specialty Start Date End Date Shaun Bloom [address] [place] [address] PCP - General Internal Medicine 03/07/18 documented as of this encounter
--- OUTSIDE RECORDS SUMMARY | 2025-01-09 09:43 | XMS_ITS | Encounter Summary ---
Author Organization [facility] Address [address] [facility] [address] [place] [address] Phone Care Team Providers Care Electronic Induction Hardener Name Role Phone Shaun Jones MD Primary Care Provider Unav ailable Reason for Visit * Reason Comments Med Refill Encounter Details Date Type Department Care Team (Late Contact Info) Description 04/26/2022 Refill [facility] [address] [place] [address] Jose Thompson, DO [address] [place] [address] Social History Tobacco Use Types Packs/Day Years Used Date Smoking Tobacco: Former Cigarettes Smokeless Tobacco: Never Alcohol Use Standard Drinks/Week Comments Never 0 (1 standard drink = 0.6 oz pur e alcohol) Sex and Gender Information Value Date Recorded Sex Assigned at Not on file Legal Sex Male 4:57 PM EST Gender Identity Not on file Sexual Orientation Not on file documented as of this encounter Plan of Treatment Upcoming Encounters Date Type Department Care Team (Late Contact Info) Description 05/31/2025 8:40 AM EDT Office Visit [facility] [address] [phone] Sid Moy MD [address] [phone] documented as of this encounter Visit Diagnoses Not on filedocumented in this encounter Care Teams Electronic Induction Hardener Relationship Specialty Start Date End Date Shaun Jones MD [address] [place] [address] PCP - General Internal Medicine 05/07/21 documented as of this encounter
--- OUTSIDE RECORDS SUMMARY | 2025-01-09 09:43 | XMS_ITS | Encounter Summary ---
Author Organization [facility] Address [address] [place] [address] Care Team Providers Care Education Paraprofessional Name Role Phone Shaun Bloom Primary Care Provider + Encounter Details Date Type Department Care Team (Late st Contact Info) Description 06/14/2023 Orders Only [facility] Interventional Radiology [address] [place] [address] Kevin Patel MD [address] [place] [address] Social History Tobacco Use Types Packs/Day Years [...] Description 01/19/2025 8:45 AM EDT Hospital Encounter [facility] Endoscopy [address] [place] [address] Soraida Atkins MD [address] [place] [address] 01/19/2025 8:45 AM EDT - 01/19/2025 9:30 AM EDT Surgery [facility] Endoscopy [address] [place], [place] [phone] Soraida Atkins MD [address] [place], [place] [phone] COLONOSCOPY, DIAGNOSTIC, WITH POSSIBLE MODERATE SEDATION [[id number] (CPT??)] 05/22/2025 10:00 AM EDT Follow-Up [facility] Liver Transplant Services [address] [place], [place] [phone] Soraida Atkins MD [address] [place], [place] [phone] Scheduled Procedures Name Priority Associated Diagnoses Date/Ti me COLONOSCOPY, DIAGNOSTIC, WITH POSSIBLE MODERATE SEDATION Liver transplant recipient (HCC) 01/19/2025 8:45 AM EDT documented as of this encounter Visit Diagnoses Not on filedocumented in this encounter Care Teams Education Paraprofessional Relationship Specialty Start Date End Date Shaun Bloom [address] [place] [address] PCP - General Internal Medicine 03/07/18 documented as of this encounter
--- OUTSIDE RECORDS SUMMARY | 2025-01-09 09:43 | XMS_ITS | Encounter Summary ---
Author Organization [facility] Address [address] [place] [address] Care Team Providers Care Remarketing Rep Name Role Phone Shaun Bloom Primary Care Provider + Encounter Details Date Type Department Care Team (Late st Contact Info) Description 02/07/2021 Orders Only [facility] Interventional Radiology [address] [place] [address] Ravin Tsang MD [address] [place] [address] Social History Tobacco Use Types Packs/Day Years [...] Description 01/19/2025 8:45 AM EDT Hospital Encounter [facility] Endoscopy [address] [place] [address] Soraida Atkins MD [address] [place] [address] 01/19/2025 8:45 AM EDT - 01/19/2025 9:30 AM EDT Surgery [facility] Endoscopy [address] [place], [place] [phone] Soraida Atkins MD [address] [place], [place] [phone] COLONOSCOPY, DIAGNOSTIC, WITH POSSIBLE MODERATE SEDATION [41147 (CPT??)] 05/22/2025 10:00 AM EDT Follow-Up [facility] Liver Transplant Services [address] [place], [place] [phone] Soraida Atkins MD [address] [place] [address] Scheduled Procedures Name Priority Associated Diagnoses Date/Ti me COLONOSCOPY, DIAGNOSTIC, WITH POSSIBLE MODERATE SEDATION Liver transplant recipient (HCC) 01/19/2025 8:45 AM EDT documented as of this encounter Visit Diagnoses Not on filedocumented in this encounter Care Teams Remarketing Rep Relationship Specialty Start Date End Date Shaun Bloom [address] [place] [address] PCP - General Internal Medicine 03/07/18 documented as of this encounter
--- OUTSIDE RECORDS SUMMARY | 2025-01-09 09:43 | XMS_ITS | Encounter Summary ---
Author Organization [facility] Address [address] [place] [address] Care Team Providers Care Director Of Mobile Marketing Name Role Phone Shaun Bloom Primary Care Provider + Encounter Details Date Type Department Care Team (Late st Contact Info) Description 06/11/2024 Orders Only [facility] XRay [address] [place] [address] Amari Dumont MD [address] [place] [address] Social History Tobacco Use Types Packs/Day Years [...] Description 01/19/2025 8:45 AM EDT Hospital Encounter [facility] Endoscopy [address] [place] [address] Soraida Atkins MD [address] [place], [place] [phone] 01/19/2025 8:45 AM EDT - 01/19/2025 9:30 AM EDT Surgery [facility] Endoscopy [address] [place], [place] [phone] Soraida Atkins MD [address] [place], [place] [phone] COLONOSCOPY, DIAGNOSTIC, WITH POSSIBLE MODERATE SEDATION [21806 (CPT??)] 05/22/2025 10:00 AM EDT Follow-Up [facility] Liver Transplant Services [address] [place], [place] [phone] Soraida Atkins MD [address] [place], [place] [phone] Scheduled Procedures Name Priority Associated Diagnoses Date/Ti me COLONOSCOPY, DIAGNOSTIC, WITH POSSIBLE MODERATE SEDATION Liver transplant recipient (HCC) 01/19/2025 8:45 AM EDT documented as of this encounter Visit Diagnoses Not on filedocumented in this encounter Care Teams Director Of Mobile Marketing Relationship Specialty Start Date End Date Shaun Bloom [address] [place] [address] PCP - General Internal Medicine 03/07/18 documented as of this encounter
--- OUTSIDE RECORDS SUMMARY | 2025-01-09 09:43 | XMS_ITS ---
Author Organization [facility] Address [address] [place] [address] Care Team Providers Care Floor Covering Installer Name Role Phone Shaun Bloom Primary Care Provider + Active Problems Patient Care Coordination No te [...] sober for 20 years. Originally immigrated from [place], lives in [place]. He last used drugs including heroin, cocaine [...] (02/02/2018): Added automatically from request for surgery [id number] S/P liver transplant 02/02/2018 Overview (02/03/2018): Added automatically from request for surgery [id number] Assessment & Plan (12/21/2018 10:05 AM EDT): [...] glycohemoglobin and other lab monitoring discussed and keno terminal operator diabetic complications discussed Glucose monitoring. The patient [...] glycohemoglobin and other lab monitoring discussed and keno terminal operator diabetic complications discussed Glucose monitoring. The patient [...] new policy for downstaging was implemented within [facility] and we will petition for MELD exception points. I reviewed the MELD exception point schedule with Shaji and he was happy to hear he may finally qualify for additional points on the waitlist. Current Treatment and Therapy Plans No current plan information found. Past Treatment and Therapy Plans No past plan information found. Lifetime Dose Tracking * Chemical Lifetime Dose Automatic Entry Manual Entr y Fluoro Time 2.8 minutes 2.8 minutes 0 minutes TotalDLP 3,405 mGy 3,405 mGy 0 mGy [id number] 52.8 mSv 52.8 mSv 0 mSv CTDIvol Max 65 mGy 65 mGy 0 mGy CTDIvol Min 28.3 mGy 28.3 mGy 0 mGy Radiation - mGy 58.08 mGy 58.08 mGy 0 mGy Resolved Problems Problem Noted Date Diagnosed Date [...]
--- OUTSIDE RECORDS SUMMARY | 2025-01-09 09:43 | XMS_ITS | Encounter Summary ---
Author Organization [employer] [facility] Address [address] [place] [address] Care Team Providers Care Marshmallow Machine Worker Name Role Phone Shaun Tarango MD Primary Care Provide r Tavon Villa PharmD Unavailable [phone] Chen PharmD Unavailable [phone] Encounter Details Date Type Department Care Team ([facility] Contact Info) Description 12/31/2022 Abstract [facility] MEDICINE [address] [place] [id number] Shaun Tarango MD [address] [place] [phone] Social History Tobacco Use Types Packs/Day Years Used Date Smoking Tobacco: Never Passive Smoke Exposure: Never Smokeless Tobacco: Never Depression Answer Date Recorded Patient Health Questionnaire-2 Score 0 09/01/2022 Sex and Gender Information Value Date Recorded Sex Assigned at Male 06/22/2022 10:14 AM EDT Legal Sex Male 10:14 AM EDT Gender Identity Male 06/22/2022 10:14 AM EDT Sexual Orientation Straight 06/22/2022 10 :14 AM EDT COVID-19 Exposure Response Date Recorded In the last 10 days, have yo u been in contact with someone who was confirmed or suspected to have Coronavirus/COVID-19? No / Unsure 12/01/2022 9:29 AM EDT documented as of this encounter Plan of Treatment Upcoming Encounters Date Type Department Care Team ([facility] Contact Info) Description 01/18/2025 10:30 AM EDT Nurse Only [facility] MEDICINE [address] [place] [address] [phone] 02/15/2025 9:15 AM EDT Office Visit [facility] MEDICINE [address] [address] Shaun Tarango MD [address] [address] 03/08/2025 9:30 AM EDT Telemedicine [facility] MEDICINE [address] [place] [address] Airam Chen PharmD [address] [place] [address] documented as of this encounter Procedures Procedure Name Priority Date/Time Associated Diagnosis Comments COLONOSCOPY Routine 11/09/2022 10:24 AM EDT MAMMOGRAPHY Routine 11/09/2022 documented in this encounter Results * Colonoscopy (11/09/2022 10:24 AM EDT) Colonoscopy Normal Normal Narrative Lissette Carl - 11/09/2022 10:24 AM EDT Recommended 1 year follow up due to poor prep Historical Provider HEALTH MAINTENANCE Edited Result - Final * Mammography (11/09/2022) Mammogram normal Anatomical Region Laterality Modality Other 11/09/2022 Narrative 11/09/2022 10:18 AM EDT Incorrect order ( discard order ) Historical Provider HEALTH MAINTENANCE Edited Result - Final documented in this encounter Visit Diagnoses Not on filedocumented in this encounter Care Teams Marshmallow Machine Worker Relationship Specialty Start Date End Date [place] [address] PCP - General Internal Medicine 04/25/14 Tavon Villa PharmD [address] [place] [address] [place] [address] Pharmacist Internal Medicine 11/04/23 08/30/24 Airam Chen, Neymar [address] [place] [address] Pharmacist Internal Medicine 08/31/24 documented as of this encounter
--- OUTSIDE RECORDS SUMMARY | 2025-01-09 09:43 | XMS_ITS | Clinical Summary ---
Author Organization [facility] Address [address] [place] [phone] Phone Care Team Providers Care Director Of Design Name Role Phone Shaun Jones MD Primary Care Provider Unav ailable Allergies No known active allergies Medications insulin glargine (LANTUS) 100 UNIT/ML injection Inject under the skin every night Active atorvastatin (LIPITOR) 80 MG tablet Take 80 mg by mouth 1 (one) time each day Active tacrolimus (PROGRAF) 1 MG capsule Take 1 mg by mouth 2 (two) times a day Active ticagrelor (BRILINTA) 90 MG tablet Take 90 mg by mouth in the morning and 90 mg in the evening. Active labetalol (NORMODYNE) 300 MG tablet Take 200 mg by mouth 2 (two) times a day Active docusate sodium (COLACE) 100 MG capsule Take 100 mg by mouth 2 (two) times a day Active senna (SENOKOT) 8.6 MG tablet Take 1 tablet by mouth 1 (one) time each day Active insulin aspart (NovoLOG) 100 UNIT/ML injection Inject 100 Units under the skin 3 (three) times a day before meals Active aspirin (ST ERMIAS) 81 MG EC tablet Take 81 mg by mouth 1 (one) time each day Active Multiple Vitamin (Daily-Franca Multivitamin) tablet Take 1 tablet by mouth 1 (one) time each day 05/23/2021 Active omeprazole (PriLOSEC) [address] capsule Take 1 capsule by mouth 1 (one) time each day 03/16/2022 Active hydrALAZINE 25 MG tablet Take 1 tablet (25 mg total) by mouth in the morning and 1 tablet (25 mg total) in the evening. 180 tablet 3 05/07/2024 Active metFORMIN (GLUCOPHAGE) 500 MG tabletIndicatio ns:Diabetes mellitus, not otherwise specified (HCC),Type 2 diabetes mellitus with diabetic chronic kidney disease (HCC) Take 1 tablet (500 mg total) by mouth in the morning and 1 tablet (500 mg total) in the evening. Take with meals. 180 tablet 3 09/18/2024 6 Active losartan (COZAAR) 25 MG tablet Take 1 tablet (25 mg total) by mouth 1 (one) time each day 90 tablet 3 10/23/2024 6 Active Magnesium Oxide -Mg Supplement 250 MG tablet Take 1 tablet by mouth 1 (one) time each day 90 tablet 3 11/29/2024 6 Active Cholecalciferol (Vitamin D3) 50 MCG (1999 UT) tablet Take 1 tablet by mouth 1 (one) time each day 90 tablet 3 11/29/2024 6 Active Active Problems Problem Noted Date Diagnosed Date History of hepatitis C 11/23/2022 Old myocardial infarction 07/30/2022 Overview (11/23/2022): Last Assessment & Plan: Pt is s/p NSTEMI w/ CARLEE to RCA at [facility]. Pt presented to [facility] on 02/12/2020 with worsening substernal CP, found to have non-specific ST & T wave changes & elevated cardiac enzymes (Troponin 1.85 at ED, up to 2.38 at [facility]). Administered ASA, heparin, nitropaste. Echo obtained that showed preserved LV systolic function, no regional wall motion abnormalities, no valve abnormalities and intact EF 55-60%. Transferred to [facility] for cardiac cath, CARLEE placed RCA. [facility] consulted and pt started on Ticagrelor 90mg BID, Atorvastatin 80mg QD, ASA 81mg QD. Pt tells me he has not seen the product architect in years. Will refer back History of hepatocellular carcinoma 07/15/2022 Overview (11/23/2022): Last Assessment & Plan: Cirrhosis, hx of HCC x 2 post TACE, radiofrequency ablation, SBRT. 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 Under the care of Liver transplant clinic at [facility] Last seen 10/16/2021. On a regimen of: prograf 2 mg BID Off Coumadin Last seen at [facility] Liver transplant clinic 10/16/2021 they recommended repeat Chest and CT 4 phase abdomen for 08/01/2022 that showed no evidence of metastatic disease Hyperkalemia 03/07/2018 Acute nontraumatic kidney injury 02/03/2018 Insulin treated type 2 diabetes mellitus 015 Overview (11/28/2024): Pharmacotherapy: Updated 01/24/24 - Metformin 500mg BID - past due for refills - Lantus 22 units daily Statin? Y - Atorvastatin 80mg daily considering history of ASCVD ASA? 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 Y - Losartan 25mg daily; stage III CKD History: Established CDTM 10/18/23. Per patient, he does portion control and at home BG readings are never higher than 130mg/dl. Diabetes mellitus, not otherwise specified 10/26 Overview (08/18/2021): Last Assessment & Plan: Diabetes with microvascular complications Controlled in a [...] glycohemoglobin and other lab monitoring discussed and wildlife manager diabetic complications discussed Glucose monitoring. The patient [...] consider metformin to add to his therapy Resolved Problems Problem Noted Date Diagnosed Date Resolved Date Chronic hepatitis C caused b y Hepatitis C virus genotype 1 05/28/2021 08/18/2021 Depressive disorder 05/28/2021 08/18/20 21 Long-term current use of insulin 10/04/2019 08/18/2021 Overview (08/18/2021): Last Assessment & Plan: On high risk therapy with insulin for labile BGs and hypoglycemia Immunosuppression 03/09/2018 08/18/2021 Liver function test above reference range 02/23/2018 08/18/2021 Pleural effusion associated with hepatic disorder 02/11/2018 08/18/2021 Hypovolemia 02/06/2018 11/18/2021 Chronic hepatic failure 02/02/201810/22 Overview (08/18/2021): Added automatically from request for surgery [id number] H/O: liver recipient 02/02/2018 021 Overview (08/18/2021): Added automatically from request for surgery [id number] Last Assessment & Plan: Avoid hepatotoxic meds for DM care Obesity 09/17/2016 08/18/2021 Hyperlipidemia 10/27/2011 11/18/2021 Overview (08/18/2021): Last Assessment & Plan: LT 2018 Not on statins Liver cell carcinoma 10/23/2010 021 Overview (08/18/2021): Last Assessment & Plan: Shaji Ramirez was diagnosed with stage I [...] cell phone on him at all times. Encounters Date Type Department Care Team Description 11/29/2024 8:40 AM EDT Office Visit [facility] [address] [address] Sid Moy MD Stage 3a chronic kidney disease (HCC) (Primary Dx); Insulin treated type 2 diabetes mellitus (HCC); Old myocardial infarction; Hypertension; Hyperkalemia; History of hepatocellular carcinoma; History of hepatitis C; H/O: liver recipient (HCC); Diabetes mellitus, not otherwise specified (HCC); Other acute kidney failure (HCC) 11/29/2024 Orders Only [facility] [id number] [address] Sid Moy MD Stage 3a chronic kidney disease (HCC); Hypertension; Hyperkalemia; History of hepatocellular carcinoma; H/O: liver recipient (HCC); Diabetes mellitus, not otherwise specified (HCC) 10/23/2024 Refill [facility] [id number] [address] Anita Wagner from Last 3 Months Immunizations Immunization Administration Dates Next Due Hep A, 2 Dose 08/02/2002,07/18/2001 Hepatitis B 10/23/2010 Influenza Split 06/28/2013,05/12/2012 Influenza, Quadrivalent, Preservative Free 05/17 Influenza, Quadrivalent, With Preservative 09/23,05/07/2016 Moderna SARS-COV-2 05/01/2021,11/20/2020, 021 PPD Test 08/04/2010 Pneumococcal Conjugate 13-Valent 07/28/2016 Pneumococcal Polysaccharide 08/03/2011 Tdap 05/07/2016 Family History Medical History Relation Comments Cancer Father Diabetes Father Hypertension Father Diabetes Mother Hypertension Mother Relation Status Comments Father Mother Social History Tobacco Use Types Packs/Day Years Used Date Smoking Tobacco: Former Cigarettes Smokeless Tobacco: Never Tobacco Cessation:Counseling Given: Not Answered Alcohol Use Standard Drinks/Week Comments Never 0 (1 standard drink = 0.6 oz pur e alcohol) Sex and Gender Information Value Date Recorded Sex Assigned at Not on file Legal Sex Male 4:57 PM EST Gender Identity Not on file Sexual Orientation Not on file Last Filed Vital Signs Vital Sign Reading Time Taken Comments Blood Pressure 132/74 11/29/2024 8:26 AM EDT Pulse 72 11/29/2024 8:26 AM EDT Temperature - - Respiratory Rate - - Oxygen Saturation 98% 11/29/2024 8:26 AM EDT Inhaled Oxygen Concentration - - Weight 69.9 kg (154 lb 3.2 oz) 11/29/2024 8:26 A M EDT Height 157.5 cm (5' 2 ) 08/30/2023 10:28 AM EST Body Mass Index 28.2 08/30/2023 10:28 AM EST Plan of Treatment Upcoming Encounters Date Type Department Care Team (Late st Contact Info) Description 05/31/2025 8:40 AM EDT Office Visit [facility] [address] [address] Sid Moy MD [address] [address] Health Maintenance Due Date Last Done Comments Colorectal Cancer Screening: Annual FOBT 11/04/1999 Colorectal Cancer Screening: Sigmoidoscopy 11/04/1999 Hepatitis B Vaccine (1 of 3 - Risk 3-dose series) 2010 10/23/2010 Pneumococcal Vaccine: 50+ Ye ars (3 of 3 - PCV20 or PCV21) 09/22/2016 07/28/2016, 08/03/2011 Diabetes: Ophthalmology Exam 11/23/2022 Diabetes: Pedal Pulse Checked 11/23/2022 Diabetes: Sensory Foot Exam 11/23/2022 Diabetes: Visual Foot Exam 11/23/2022 Diabetes: Hemoglobin A1C 10/30/2024 024, 01/24/2024, 08/26/2023, Additional history exists Influenza Vaccine (Season Ended) 2025 09/23/2017, 05/07/2016, 05/17/2015, Additional history exists Colorectal Cancer Screening: Colonoscopy 11/09/2032 11/09/2022 Pneumococcal Vaccine: Peds ( 0 to 5 Years) and At-Risk Patients (6 to 49 Years) Discontinued 07/28/2016, 08/03/2011 Procedures Procedure Name Priority Date/Time Associated Diagnosis Comments PROTEIN / CREATININE RATIO, URINE Routine 11/28/2024 9:11 AM EDT Stage 3a chronic kidney disease (HCC) Hypertension Hyperkalemia History of hepatocellular carcinoma H/O: liver recipient (HCC) Diabetes mellitus, not otherwise specified (HCC) CBC AND DIFFERENTIAL Routine 11/28/2024 9:11 AM EDT Stage 3a chronic kidney disease (HCC) Hypertension Hyperkalemia History of hepatocellular carcinoma H/O: liver recipient (HCC) Diabetes mellitus, not otherwise specified (HCC) VITAMIN D 25 HYDROXY Routine 11/28/2024 9:11 AM EDT Stage 3a chronic kidney disease (HCC) Hypertension Hyperkalemia History of hepatocellular carcinoma H/O: liver recipient (HCC) Diabetes mellitus, not otherwise specified (HCC) PTH, INTACT Routine 11/28/2024 9:11 AM EDT Stage 3a chronic kidney disease (HCC) Hypertension Hyperkalemia History of hepatocellular carcinoma H/O: liver recipient (HCC) Diabetes mellitus, not otherwise specified (HCC) PHOSPHATE ( PHOSPHORUS) Routine 11/28/2024 9:11 AM EDT Stage 3a chronic kidney disease (HCC) Hypertension Hyperkalemia History of hepatocellular carcinoma H/O: liver recipient (HCC) Diabetes mellitus, not otherwise specified (HCC) MAGNESIUM Routine 11/28/2024 9:11 AM EDT Stage 3a chronic kidney disease (HCC) Hypertension Hyperkalemia History of hepatocellular carcinoma H/O: liver recipient (HCC) Diabetes mellitus, not otherwise specified (HCC) URIC ACID Routine 11/28/2024 9:11 AM EDT Stage 3a chronic kidney disease (HCC) Hypertension Hyperkalemia History of hepatocellular carcinoma H/O: liver recipient (HCC) Diabetes mellitus, not otherwise specified (HCC) COMPREHENSIVE METABOLIC PANEL Routine 11/28/2024 9:11 AM EDT Stage 3a chronic kidney disease (HCC) Hypertension Hyperkalemia History of hepatocellular carcinoma H/O: liver recipient (HCC) Diabetes mellitus, not otherwise specified (HCC) EXT RESULT ENTRY Routine 05/01/2021 from Last 3 Months or Most Recently Relevant to Health Maintenance Results * (ABNORMAL) Protein, Total, Random Urine w/Creatinine (Protein/Creat Ratio) (11/28/2024 9:11 AM EDT) Creatinine, Ur 162.3 Not Estab. mg/dL [facility] Protein, Ur 62.2 Not Estab. mg/dL [facility] Urine Protein/Creati nine Ratio 383(H) 0 - 200 mg/g creat [facility] Urine (Urine, Clean Catch) 11/28/2024 9:11 AM EDT 11/28/2024 us Sid Moy MD LAB URINE ORDERABLES [facility] [address] [place] [address] * (ABNORMAL) Vitamin D 25 Hydroxy (11/28/2024 9:11 AM EDT) Vitamin D, 25-OH, Total 22.7(L) 30.0 - 100.0 ng/mL [facility] Comment: Vitamin D deficiency has been defined by the [place] of Medicine and an Endocrine Society practice guideline as a level of serum 25-OH vitamin D less than 20 ng/mL (1,2). The Endocrine Society went on to further define vitamin D insufficiency as a level between 21 and 29 ng/mL (2). 1. IOM ([place] of Medicine). 2010. Dietary reference ?? intakes for calcium and D. [place]: The ?? National [employer]D [employer]. 2. Bebe MF, Zoë CUETO, Floridalma POLLOCK, et al. ?? Evaluation, treatment, and prevention of vitamin D ?? deficiency: an Endocrine Society clinical practice ?? guideline. JCEM. 2010; 96(7):1911-30. Blood (Blood, Venous) 11/28/2024 9:11 AM EDT 11/28/2024 us Sid Moy MD LAB BLOOD ORDERABLES Final Re sult Performing Organization Address City/[facility]/ZIP Co de Phone Number [facility] [address] [place] [address] * (ABNORMAL) CBC and Differential (11/28/2024 9:11 AM EDT) WBC 7.6 3.4 - 10.8 x10E3/uL [facility] RBC 3.71(L) 4.14 - 5.80 x10E6/uL [facility] Hemoglobin 11.3(L) 13.0 - 17.7 g/dL [facility] Hematocrit 34.6(L) 37.5 - 51.0 % [facility] MCV 93 79 - 97 fL [facility] MCH 30.5 26.6 - 33.0 pg [facility] MCHC 32.7 31.5 - 35.7 g/dL [facility] RDW 13.8 11.6 - 15.4 % [facility] Platelets 232 150 - 450 x10E3/uL [facility] Neutrophils Relative 59 Not Estab. % [facility] Lymphocytes Relative 21 Not Estab. % [facility] Monocytes 11 Not Estab. % [facility] Eosinophils Relative 8 Not Estab. % [facility] Basophils Relative 1 Not Estab. % [facility] Neutrophils Absolute 4.5 1.4 - 7.0 x10E3/uL [facility] Lymphocytes Absolute 1.6 0.7 - 3.1 x10E3/uL [facility] Monocytes Absolute 0.8 0.1 - 0.9 x10E3/uL [facility] Eosinophils Absolute 0.6(H) 0.0 - 0.4 x10E3/uL [facility] Basophils Absolute 0.1 0.0 - 0.2 x10E3/uL [facility] Immature Granulocytes 0 Not Estab. % [facility] Immature Grans (Absolute) 0.0 0.0 - 0.1 x10E3/uL [facility] Blood (Blood, Venous) 11/28/2024 9:11 AM EDT 11/28/2024 us Sid Moy MD LAB BLOOD ORDERABLES Final Re sult Performing Organization Address [facility] Co de Phone Number [facility] [place] [address] [place] [address] * (ABNORMAL) Uric Acid (11/28/2024 9:11 AM EDT) Uric Acid 8.6(H) 3.8 - 8.4 mg/dL [facility] Comment:Therapeutic target f or gout patients: <6.0 Blood (Blood, Venous) 11/28/2024 9:11 AM EDT 11/28/2024 Sid Moy MD LAB BLOOD ORDERABLES Final Re sult Performing Organization Address [facility] Co de Phone Number [facility] [place] [address] [place] [address] * Phosphorus (11/28/2024 9:11 AM EDT) Phosphorus 3.7 2.8 - 4.1 mg/dL [facility] Blood (Blood, Venous) 11/28/2024 9:11 AM EDT 11/28/2024 Sid Moy MD LAB BLOOD ORDERABLES Final Re sult Performing Organization Address [facility] Co de Phone Number [facility] [place] [address] [place] [address] * (ABNORMAL) PTH, Intact (11/28/2024 9:11 AM EDT) PTH 72(H) 15 - 65 pg/mL [facility] Blood (Blood, Venous) 11/28/2024 9:11 AM EDT 11/28/2024 Sid Moy MD LAB BLOOD ORDERABLES Final Re sult Performing Organization Address City/[facility]/ZIP Co de Phone Number [facility] [address] [place] [address] * (ABNORMAL) Magnesium (11/28/2024 9:11 AM EDT) Magnesium 1.4(L) 1.6 - 2.3 mg/dL [facility] Blood (Blood, Venous) 11/28/2024 9:11 AM EDT 11/28/2024 Sid Moy MD LAB BLOOD ORDERABLES Final Re sult Performing Organization Address City/[facility]/ZIP Co de Phone Number [facility] [address] [place] [address] * (ABNORMAL) Comprehensive Metabolic Panel (11/28/2024 9:11 AM EDT) Glucose 125(H) 70 - 99 mg/dL [facility] BUN 32(H) 8 - 27 mg/dL [facility] Creatinine 1.72(H) 0.76 - 1.27 mg/dL [facility] eGFR CKD-EPI CR 2020 41(L) >59 mL/min/1.7 3 [facility] BUN/Creatinine Ratio 19 10 - 24 [facility] Sodium 142 134 - 144 mmol/L [facility] Potassium 4.6 3.5 - 5.2 mmol/L [facility] Chloride 110(H) 96 - 106 mmol/L [facility] Calcium 8.8 8.6 - 10.2 mg/dL [facility] Total Protein 6.6 6.0 - 8.5 g/dL [facility] Albumin 4.4 3.8 - 4.8 g/dL [facility] Globulin 2.2 1.5 - 4.5 g/dL [facility] Total Bilirubin 0.3 0.0 - 1.2 mg/dL [facility] Alkaline Phosphatase 74 44 - 121 IU/L [facility] AST (SGOT) 15 0 - 40 IU/L [facility] ALT (SGPT) 8 0 - 44 IU/L [facility] Bicarbonate (CO2) CANCELED mmol/L [facility] Comment: Test not performed. Due to technical problems in testing, a valid result could not be obtained. The remaining specimen was not sufficient for additional testing. Result canceled by the ancillary. Blood (Blood, Venous) 11/28/2024 9:11 AM EDT 11/28/2024 us Sid Moy MD LAB BLOOD ORDERABLES Edited R esult - Final [facility] [address] [place] [address] * (ABNORMAL) EXT RESULT ENTRY (05/01/2021) Sodium 139 137 - 147 Potassium 4.4 3.4 - 5.5 Chloride 107 99 - 108 Bicarbonate (CO2) 24 22 - 30 mmol/L Glucose 114 60 - 200 BUN 22(A) 4 - 21 mg/dL Creatinine 1.40(A) 0.60 - 1.30 mg/dL Total Protein 6.7 6.4 - 8.2 G/DL Albumin 4.6 3.5 - 5.0 g/dL Calcium 9.3 8.7 - 10.7 mg/dL eGFR Non-Afr [place] 59 eGFR 51 Total Bilirubin 0.6 MG/DL ALT (SGPT) 12 U/L AST (SGOT) 17 U/L Alkaline Phosphatase 56 U/L Hemoglobin A1C 5.8 4.0 - 6.0 Triglycerides 62 40 - 160 Cholesterol 82 0 - 200 HDL 34(A) 35 - 70 MG/DL LDL Calculated 34 0 - 160 mg/dL VLDL Cholesterol Kain 48 mg/dL Chol/HDL Ratio 2.4 05/01/2021 Historical Provider LAB BLOOD ORDERABLES Faith l Result from Last 3 Months or Most Recently Relevant to Health Maintenance Insurance Medicare Medicaid [place] Medicare Medicaid [place] Care Teams Director Of Design Relationship Specialty Start Date End Date Shaun Jones MD [address] [place] [address] PCP - General Internal Medicine 05/07/21
--- OUTSIDE RECORDS SUMMARY | 2025-01-09 09:43 | XMS_ITS | Referral Summary ---
Author Organization [facility] Address [address] [place] [address] Care Team Providers Care Front Load Trash Truck Driver Name Role Phone Shaun Bloom Primary Care [...] sober for 20 years. Originally immigrated from [place], lives in [place]. He last used drugs including heroin, cocaine [...] (02/02/2018): Added automatically from request for surgery [id number] S/P liver transplant 02/02/2018 Overview (02/03/2018): Added automatically from request for surgery [id number] Assessment & Plan (12/21/2018 10:05 AM EDT): [...] glycohemoglobin and other lab monitoring discussed and superintendent terminal diabetic complications discussed Glucose monitoring. The patient [...] glycohemoglobin and other lab monitoring discussed and detention diabetic complications discussed Glucose monitoring. The patient [...] Description 01/19/2025 8:45 AM EDT Hospital Encounter [facility] Endoscopy [address] [place] [address] Soraida Atkins MD [address] [place] [address] 01/19/2025 8:45 AM EDT - 01/19/2025 9:30 AM EDT Surgery [facility] Endoscopy [address] [place] [address] Soraida Atkins MD [address] [place] [address] COLONOSCOPY, DIAGNOSTIC, WITH POSSIBLE MODERATE SEDATION [40411 (CPT??)] 05/22/2025 10:00 AM EDT Follow-Up [facility] Liver Transplant Services [address] [place], [place] [phone] Soraida Atkins MD [address] [place] [address] Scheduled Procedures Name Priority Associated Diagnoses Date/Ti me COLONOSCOPY, DIAGNOSTIC, WITH POSSIBLE MODERATE SEDATION Liver transplant recipient (HCC) 01/19/2025 8:45 AM EDT Goals Goal Patient Goal Type Associated Problems Recent Progress Patient-Stated? Author Autogenera bry Goal Care Plan Autogenerated Problem No Optime Background User Procedures * Due to [place] Renovar law, this organization might not be sharing [...] to Health Maintenance Results * Due to [place] Renov[place] law, this organization might not be sharing [...] obtain the completed interpretation. ? Workstation ID: [id number] Up-to-date CT equipment and radiation dose reduction techniques were employed. CTDIvol: 3.0 - 15.1 mGy. DLP: 1188 mGy-cm. ??The following accession numbers are related to this dose report [id number]: [id number] [facility] 03/17/2024 11:[address] CHEST W [...] thoracic vertebral body heights. Resulting Agency Comment [id number] Procedure Note Saritha Mcgee MD - 03/17/2024 [...] possible to obtain thecompleted interpretation. Workstation ID: [id number] Up-to-date CT equipment and radiation dose reduction techniques wereemployed. CTDIvol: 3.0 - 15.1 mGy. DLP: 1188 mGy-cm. The followingaccession numbers are related to this dose report [id number]: [id number] us Soraida Atkins MD IMG CT PROCEDURES Final Resu lt * COLONOSCOPY (11/09/2022) Narrative Procedure Note Soraida Atkins MD - 11/09/2022 8:28 AM EDT [facility] Gastroenterology Patient Name: Shaji Ramirez Procedure Date: 11/09/2022 8:28 AM Date of : 1950 Admit Type: Ambulatory Age: 72 Room: [place] [address] Gender: Male Note Status: Finalized Attending MD: [...] - 145 mmol/L 06/02/2022 10:42 AM EDT [facility] K 4.9 3.5 - 5.3 mmol/L 06/02/2022 10:42 AM EDT [facility] Cl 102 97 - 110 mmol/L 06/02/2022 10:42 AM EDT [facility] CO2 30 24 - 32 mmol/L 06/02/2022 10:42 AM EDT [facility] Anion Gap 7 5 - 15 06/02/2022 10:42 AM EDT [facility] Glucose 117(H) 70 - 99 mg/dL 06/02/2022 10:42 AM EDT [facility] Creatinine 1.45(H) 0.60 - 1.30 mg/dL 06/02/2022 10:42 AM EDT [facility] Calcium 9.3 8.7 - 10.7 mg/dL 06/02/2022 10:42 AM EDT [facility] Total Protein 7.2 6.0 - 8.0 g/dL 06/02/2022 10:42 AM EDT [facility] Albumin 4.5 3.5 - 4.8 g/dL 06/02/2022 10:42 AM EDT [facility] Bilirubin, Total 0.8 0.3 - 1.2 mg/dL 06/02/2022 10:42 AM EDT [facility] Alkaline Phosphatase 60 30 - 115 U/L 06/02/2022 10:42 AM EDT [facility] AST 16 10 - 40 U/L 06/02/2022 10:42 AM EDT [facility] ALT 12 10 - 40 U/L 06/02/2022 10:42 AM EDT [facility] BUN 21 7 - 23 mg/dL 06/02/2022 10:42 AM EDT [facility] eGFR 52(L) >=90 mL/min/1. 73m2 06/02/2022 10:42 AM EDT [facility] Comment: Estimated Glomerular Filtration [...] 9:55 AM EDT 06/02/2022 10:15 AM EDT [facility] - 06/02/2022 10:42 AM EDT STANDING ORDER EVERY 8 WEEKS FAX RESULT TO [phone] STANDING ORDER EVERY 8 WEEKS FAX RESULT TO [phone] STANDING ORDER EVERY 8 WEEKS FAX RESULT TO [phone] us Soraida Atkins MD LAB BLOOD ORDERABLES Final R esult [facility] SERVICESGlasses DirectC[facility] [address] [place] [address], [place] * Microalbumin, Random Urine, Outside Lab (04/25/2020) Creatinine Urine, Outside Lab 524 Microalbumin, Random Urine 820.0 Microalbumin/Cre atinine Random Urine 156.4 Urine Catheter / Unknown 04/25/2020 us Unknown Provider LAB URINE ORDERABLES Final R esult * (ABNORMAL) POCT Glycosylated Hemoglobin (HGB A1C), interfaced (04/23/2020 8:20 AM EDT) Hemoglobin A1C, POCT 6.1(H) <=5.6 % 04/23/2020 8:26 AM EDT [facility] Comment: A1C Recommendation for Non- Adults with Diabetes: <7.0% ADA 2011 Standards of Medical Care in Diabetes Blood 04/23/2020 8:20 AM EDT 04/23/2020 8:25 AM EDT us Jeanine Mar MD LAB POCT ORDERABLES - DEVICE Fin al Result [facility] [address] [place] [address], [place] * CT 3 Phase Abdomen (06/20/2019 [...] reported or so edited. Resident/Fellow:Kirit De La Garza [facility],PhD [id number] Narrative 06/21/2019 10:45 AM EDT EXAMINATION: CT [...] or so edited. Resident/Fellow:Kirit De La Garza, [facility],PhD [id number] Yen Castro MD IMG CT PROCEDURES Final R esult from Last 3 Months or Most Recently Relevant to Health Maintenance Additional Health Concerns Active Problems Noted Date Diagnosed Date Autogenerated Problem 12/29/2024 Insurance MEDICARE [facility] MEDICARE Member Subscriber Plan / Payer (Ef fective 1992-Present) Name:Shaji Ramirez Member ID:[id number] Relation to Subscriber:Self Name:Shaji Ramirez Subscriber ID:[id number] Payer ID:[id number] Group ID:Not on file Type:Not on file Address: [address] MEDICARE Member Subscriber Plan / Payer (Ef fective 1992-Present) Name:Shaji Ramirez Member ID:[id number] Relation to Subscriber:Self Name:Shaji Ramirez Subscriber ID:[id number] Payer ID:[id number] Group ID:Not on file Type:Not on file Address: [place] [id number] Advance Directives Documents on File Type Date Recorded Patient Torch Straightener Expl anation Advance Directive 07/28/2011 12:00 AM nikita West edical Dec Making (Adv.Dir) Advance Directive 10/21/2010 [...] 6:26 AM 02/02/2018 6:37 AM Care Teams Front Load Trash Truck Driver Relationship Specialty Start Date End Date Shaun Bloom [address] [place] [address] PCP - General Internal Medicine 03/07/18
--- OUTSIDE RECORDS SUMMARY | 2025-01-09 09:43 | XMS_ITS | Encounter Summary ---
Author Organization [employer] Address [address] [facility] 7[address] [place] [address] Care Team Providers Care Street Light Cleaner Name Role Phone Shaun Tarango MD Primary Care Provide r Tavon Villa PharmD Unavailable [phone] Airam Chen PharmD Unavailable [phone] Reason for Visit * Reason Comments Med Refill Encounter Details Date Type Department Care Team (Late st Contact Info) Description 06/07/[address] [facility] [address] [place], [place] [phone] Suzie Zamarripa MD [address] [place], [place] [phone] Social History Tobacco Use Types Packs/Day Years Used Date Smoking Tobacco: Never Passive Smoke Exposure: Never Smokeless Tobacco: Never Housing Stability Answer Date Recorded What is your housing situation today? I have housing today, but I am worried about losing housing in the future 06/07/[address] you li ve. Do you have problems with any of the following? None of the above 06/07/2023 Food Insecurity Answer Date Recorded Within the past 12 months, y ou worried that your food would run out before you got money to buy more: Never True 06/07/2023 Within the past 12 months,th e food you bought just didn't last and you didn't have enough money to get more: Never True Transportation Answer Date Recorded In the past 12 months, has l ack of transportation kept you from medical appts, meetings, work or from getting things needed for daily living? No 06/07/2023 Utilities Answer Date Recorded In the past 12 months, has t he electric, gas, oil or water company threatened to shut off services in your home? No 06/07/2023 Depression Answer Date Recorded Patient Health Questionnaire-2 [...] Description 01/18/2025 10:30 AM EDT Nurse [address] [facility] [address] [place] [address] 02/15/2025 9:15 AM EDT Office [address] [facility] [address] [place] [address] Shaun Tarango MD [address] [place] [address] 03/08/2025 9:[address] [facility] [address] [place] [address] Airam Chen PharmD [address] [place] [address] documented as of this encounter Visit Diagnoses Not on filedocumented in this encounter Care Teams Street Light Cleaner Relationship Specialty Start Date End Date Shaun Tarango MD [address] [place] [address] PCP - General Internal Medicine 04/25/14 Tavon Villa PharmD [address] [place] [address] Pharmacist Internal Medicine 11/04/23 08/30/24 Airam Chen PharmD [address] [place] [address] Pharmacist Internal Medicine 08/31/24 documented as of this encounter
--- OUTSIDE RECORDS SUMMARY | 2025-01-09 09:43 | XMS_ITS | Encounter Summary ---
Author Organization [facility] Address [address] [facility] [address] [place] [address] Phone Care Team Providers Care Size Tester Name Role Phone Shaun Jones MD Primary Care Provider Unav ailable Encounter Details Date Type Department Care Team (Late Contact Info) Description 10/15/2022 Telephone [facility] [address] [facility] [address] [place] [address] Carolina Rader [place] Social History Tobacco Use Types Packs/Day Years [...] on file documented as of this encounter Miscellaneous Notes * Telephone Encounter - Carolina Rader MA - 10/15/2022 10:44 AM EST Pt called he needs a refill for losartan 25 mg. Please send to [facility] pharmacy pt hasn't has his meds for a week. Thank you documented in this encounter Plan of Treatment Upcoming Encounters Date Type Department Care Team (Late Contact Info) Description 05/31/2025 8:40 AM EDT Office Visit [facility] [address] [address] Sid Moy MD [address] [address] documented as of this encounter Visit Diagnoses Not on filedocumented in this encounter Care Teams Size Tester Relationship Specialty Start Date End Date Shaun Jonse MD [address] [place] [address] PCP - General Internal Medicine 05/07/21 documented as of this encounter
--- OUTSIDE RECORDS SUMMARY | 2025-01-09 09:43 | XMS_ITS | Encounter Summary ---
Author Organization [facility] Address [address] [place] [address] Care Team Providers Care Keymodule Assembly Machine Tender Name Role Phone Shaun Bloom Primary Care Provider + Encounter Details Date Type Department Care Team (Late st Contact Info) Description 10/28/2023 Orders Only [facility] Interventional Radiology [address] [place] [address] Alton Espana MD [address] [place] [address] Social History Tobacco Use Types Packs/Day Years [...] Description 01/19/2025 8:45 AM EDT Hospital Encounter [facility] Endoscopy [address] [place] [address] Soraida Atkins MD [address] [place] [address] 01/19/2025 8:45 AM EDT - 01/19/2025 9:30 AM EDT Surgery [facility] Endoscopy [address] [place], [place] [phone] Soraida Atkins MD [address] [place], [place] [phone] COLONOSCOPY, DIAGNOSTIC, WITH POSSIBLE MODERATE SEDATION [68169 (CPT??)] 05/22/2025 10:00 AM EDT Follow-Up [facility] Liver Transplant Services [address] [place], [place] [phone] Soraida Atkins MD [address] [place] [address] Scheduled Procedures Name Priority Associated Diagnoses Date/Ti me COLONOSCOPY, DIAGNOSTIC, WITH POSSIBLE MODERATE SEDATION Liver transplant recipient (HCC) 01/19/2025 8:45 AM EDT documented as of this encounter Visit Diagnoses Not on filedocumented in this encounter Care Teams Keymodule Assembly Machine Tender Relationship Specialty Start Date End Date Shaun Bloom [address] [place] [address] PCP - General Internal Medicine 03/07/18 documented as of this encounter
--- OUTSIDE RECORDS SUMMARY | 2025-01-09 09:43 | XMS_ITS | Clinical Summary ---
Author Organization [facility] Address [address] [place] [address] Phone Care Team Providers Care Back Hoe Operator Name Role Phone Curry Acevedo MD Primary Care Provider [phone] Allergies No known active allergies Medications No known medications Active Problems No known active problems Encounters Date Type Department Care Team Description 11/24/2024 7:10 PM EDT - 11/24/2024 9:03 PM EDT Emergency [facility] Emergency [address] [place] [address] Blood pressure check (Primary Dx); Worried well Discharge Disposition: Home or Self Care from Last 3 Months Immunizations Name Administration Dates Next Due Moderna SARS-CoV-2 COVID-19, mRNA, LNP-S, preservative free 05/01/2021,11/20/2020,10/23/2020 Medical History Medical History Date Comments Hypertension Diabetes mellitus (CMS/HCC V24, CMS/HCC V28) Hyperlipidemia Social History Tobacco Use Types Packs/Day Years Used Date Smoking Tobacco: Never Smokeless Tobacco: Never Alcohol Use Standard Drinks/Week Comments Not Currently 0 (1 standard drink = 0.6 oz pur e alcohol) Sex and Gender Information Value Date Recorded Sex Assigned at Male 11/24/2024 7:43 PM EDT Legal Sex Male 11:45 PM EST Gender Identity Male 11/24/2024 7:43 PM EDT Sexual Orientation Straight 11/24/2024 7: 43 PM EDT Obstetrics History Last Filed Vital Signs Vital Sign Reading Time Taken Comments Blood Pressure 135/55 11/24/2024 9:02 PM EDT Pulse 82 11/24/2024 9:02 PM EDT Temperature 36.7 ??C (98.1 ??F) 11/24/2024 4:24 PM ED T Respiratory Rate 18 11/24/2024 9:02 PM EDT Oxygen Saturation 98% 11/24/2024 9:02 PM EDT Inhaled Oxygen Concentration - - Weight 70.3 kg (155 lb) 11/24/2024 4:24 PM EDT Height 157.5 cm (5' 2 ) 11/24/2024 4:24 PM EDT Body Mass Index 28.35 11/24/2024 4:24 PM EDT Plan of Treatment Health Maintenance Due Date Last Done Comments Diabetes: Annual Foot Exam 1960 Diabetes: Annual Retina Eye Exam 1960 RSV Immunization Adult Patients (1 - Risk 60-74 years 1-dose series) 2010 Hepatitis B Vaccines (2 of 3 - Risk 3-dose series) 11/20/2010 10/23/2010 Pneumococcal Vaccine: 50+ Years (4 of 4 - PCV20 or PCV21) 07/28/2021 07/28/2016, 08/03/2011, 10/23/2010, Additional history exists Colorectal Cancer Screening: Colonoscopy 07/26/2022 Falls Risk Assessment 07/26/2022 Hepatitis C Screening 07/26/2022 Medicare Annual Wellness Visit 07/26/2022 Social Influencers of Health Screening 07/26/2022 Diabetes: Annual Urine Albumin-Creatinine Ratio (uACR) 08/08/2022 03/29/2019 Diabetes: Annual GFR (Glomerular Filtration Rate) 06/02/2023 06/02/2022 Hypertension/CHF/CAD Annual BMP Blood Test 06/02/2023 06/02/2022 COVID-19 Vaccine ( season) 2024 05/01/2021, 11/20/2020, 10/23/2020 Zoster Vaccines (2 of 2) 01/10/2025 11/15/2024 Diabetes: Blood Sugar Control Test (HGBA1C) 01/30/2025 08/01/2024, 04/23/2020 Influenza Vaccine (Season Ended) 2025 09/23/2017, 05/07/2016, 05/17/2015, Additional history exists Depression Screening 08/01/2025 08/01/2024 DTaP,Tdap,and Td Vaccines (4 - Td or Tdap) 05/07/2026 05/07/2016, 10/23/2010, 10/29/2005 Cholesterol Screening (Lipid Panel) 09/21/2028 09/21/2023 Hepatitis A Vaccines Completed 08/02/2002, 07/18/20 HIB Vaccines Aged Out 10/23/2010 No longer eligi ble based on patient's age to complete this topic HPV Vaccines Aged Out No longer eligi ble based on patient's age to complete this topic IPV Vaccines Aged Out No longer eligi ble based on patient's age to complete this topic MMR Vaccines Aged Out No longer eligi ble based on patient's age to complete this topic Meningococcal ACWY Vaccine Aged Out N o longer eligible based on patient's age to complete this topic Meningococcal B Vaccine Aged Out No l onger eligible based on patient's age to complete this topic RSV Immunization Patients Under 20 months Aged Out No longer eligible based on patient's age to complete this topic Varicella Vaccines Aged Out No longer eligible based on patient's age to complete this topic Insurance MEDICARE MEDICAID - [place] Care Teams Back Hoe Operator Relationship Specialty Start Date End Date Curry Acevedo MD [address] [place] [phone] PCP - General Pediatrics 03/08/12
--- OUTSIDE RECORDS SUMMARY | 2025-01-09 09:43 | XMS_ITS ---
Author Organization [facility] Address [address] [place] [address] Care Team Providers Care Energy Trading Analyst Name Role Phone Shaun Bloom Primary Care Provider + Transplant Episode Liver Recipient [facility] ([place], [place]) - [facility] Organ Received: Liver Transplanted on 02/02/2018 Marked as Active Follow-up on 02/02/2018 Liver CoordinatorNani Leiva RN Phone: N/A Fax: N/A Email: N/A [place] Organ Diagnosis Organ Primary Contributory Liver Cirrhosis: Type C Primary Liver Malignancy: Hepatoma (HCC) and Cirrhosis Donor Information Organ ABO Source Meets Risk Criteria HLA Match Mismatches Cross Match Liver Transplanted O DBD Yes A: B: DR: Liver Donor Serology Results Anti-CMV CMV IgG: Positive EBV IgG EBV VCA IgG: Positive Anti-HBcAb HBC Total: Negative HBsAg HBsAg: Negative HBV DNA No results on file Anti-HCV HCV: Positive Anti-HIV I/II HIV-1: Negative Anti-HTLV I/II HTLV: Not Done RPR/VDRL RPR: Negative EBV IgM EBV VCA IgM: Negative HBsAb HBsAb: Not Done EBNA No results on file HBC Total HBC Total: Negative SARS CoV-2 No results on file Care Team Name Role Phone Fax Email Nani Leiva RN Liver Coordinator N/A N/A N/A Soraida Atkins MD Motorcycle Subassembler [phone] [email or web address] Hernan Acevedo MD Referring Physician [phone] N/A Events Post-Transplant Pre-Transplant Admitted: 02/02/2018 Referred: 07/14/2010 Transplanted: 02/02/2018 Evaluation began: 0 Discharged: 02/18/2018 Committee: 09/05/2010 Center waitlisted: 1
--- OUTSIDE RECORDS SUMMARY | 2025-01-09 09:44 | XMS_ITS | Encounter Summary ---
Author Organization [facility] Address [address] [place] [address] Care Team Providers Care Pet Training Instructor Name Role Phone Shaun Bloom Primary Care Provider + Encounter Details Date Type Department Care Team (Late st Contact Info) Description 06/02/2022 Orders Only [facility] Interventional Radiology [address] [place] [address] Kevin Patel MD [address] [place] [address] Social History Tobacco Use Types Packs/Day Years [...] Description 01/19/2025 8:45 AM EDT Hospital Encounter [facility] Endoscopy [address] [place] [address] Soraida Atkins MD [address] [place] [address] 01/19/2025 8:45 AM EDT - 01/19/2025 9:30 AM EDT Surgery [facility] Endoscopy [address] [place], [place] [phone] Soraida Atkins MD [address] [place], [place] [phone] COLONOSCOPY, DIAGNOSTIC, WITH POSSIBLE MODERATE SEDATION [40366 (CPT??)] 05/22/2025 10:00 AM EDT Follow-Up [facility] Liver Transplant Services [address] [place], [place] [phone] Soraida Atkins MD [address] [place], [place] [phone] Scheduled Procedures Name Priority Associated Diagnoses Date/Ti me COLONOSCOPY, DIAGNOSTIC, WITH POSSIBLE MODERATE SEDATION Liver transplant recipient (HCC) 01/19/2025 8:45 AM EDT documented as of this encounter Visit Diagnoses Not on filedocumented in this encounter Care Teams Pet Training Instructor Relationship Specialty Start Date End Date Shaun Bloom [address] [place] [address] PCP - General Internal Medicine 03/07/18 documented as of this encounter
--- OUTSIDE RECORDS SUMMARY | 2025-01-09 09:44 | XMS_ITS | Encounter Summary ---
Author Organization [facility] Address [address] [facility] [address] [place] [address] Phone Care Team Providers Care Dye Expert Name Role Phone Shaun Jones MD Primary Care Provider Unav ailable Reason for Visit * Reason Comments Med Refill Encounter Details Date Type Department Care Team (Late Contact Info) Description 09/29/2021 Refill [facility] [address] [facility] [address] [place] [address] Jose Thompson, DO [address] [place] [address] Social History Tobacco Use Types Packs/Day Years [...] Visit [facility] [address] [phone] Sid Moy MD [address] [address] documented as of this encounter Visit Diagnoses Not on filedocumented in this encounter Care Teams Dye Expert Relationship Specialty Start Date End Date Shaun Jones MD [address] [place] [address] PCP - General Internal Medicine 05/07/21 documented as of this encounter
--- OUTSIDE RECORDS SUMMARY | 2025-01-09 09:44 | XMS_ITS | Encounter Summary ---
Author Organization [facility] Address [address] [facility] [address] [place] [address] Phone Care Team Providers Care Chain Hoist Operator Name Role Phone Shaun Jones MD Primary Care Provider Unav ailable Encounter Details Date Type Department Care Team (Late Contact Info) Description 07/11/2021 Documentation Only [facility] [address] [facility] [address] [place] [address] Jose Thompson, DO [address] [place] [address] Social History Tobacco Use Types Packs/Day Years Used Date Smoking Tobacco: Former Cigarettes Smokeless Tobacco: Never Alcohol Use Standard Drinks/Week Comments Never 0 (1 standard drink = 0.6 oz pur e alcohol) Sex and Gender Information Value Date Recorded Sex Assigned at Not on file Legal Sex Male 4:57 PM EST Gender Identity Not on file Sexual Orientation Not on file COVID-19 Exposure Response Date Recorded In the last month, have you been in contact with someone who was confirmed or suspected to have Coronavirus / COVID-19? No / Unsure 07/10/2021 9:50 AM EST documented as of this encounter Plan of Treatment Upcoming Encounters Date Type Department Care Team (Late st Contact Info) Description 05/31/2025 8:40 AM EDT Office Visit [facility] [address] [address] Sid Moy MD [address] [facility] [address] [place] [address] documented as of this encounter Visit Diagnoses Not on filedocumented in this encounter Care Teams Chain Hoist Operator Relationship Specialty Start Date End Date Shaun Jones MD [address] [place] [address] PCP - General Internal Medicine 05/07/21 documented as of this encounter
--- OUTSIDE RECORDS SUMMARY | 2025-01-09 09:44 | XMS_ITS | Encounter Summary ---
Author Organization [facility] Address [address] [place] [address] Care Team Providers Care Professional Healthcare Representative Name Role Phone Shaun Bloom Primary Care Provider + Encounter Details Date Type Department Care Team (Late st Contact Info) Description 06/02/2022 Orders Only [facility] XRay [address] [place] [address] Naga Santo MD [address] [place] [address] Social History Tobacco Use Types Packs/Day Years [...] Description 01/19/2025 8:45 AM EDT Hospital Encounter [facility] Endoscopy [address] [place] [address] Soraida Atkins MD [address] [place] [address] 01/19/2025 8:45 AM EDT - 01/19/2025 9:30 AM EDT Surgery [facility] Endoscopy [address], [place] [phone] Soraida Atkins MD [address], [place] [phone] COLONOSCOPY, DIAGNOSTIC, WITH POSSIBLE MODERATE SEDATION [69300 (CPT??)] 05/22/2025 10:00 AM EDT Follow-Up [facility] Liver Transplant Services [address], [place] [id number] Soraida Atkins MD [address] [place] [address] [phone] Scheduled Procedures Name Priority Associated Diagnoses Date/Ti me COLONOSCOPY, DIAGNOSTIC, WITH POSSIBLE MODERATE SEDATION Liver transplant recipient (HCC) 01/19/2025 8:45 AM EDT documented as of this encounter Visit Diagnoses Not on filedocumented in this encounter Care Teams Professional Healthcare Representative Relationship Specialty Start Date End Date Shaun Bloom [address] [place] [address] PCP - General Internal Medicine 03/07/18 documented as of this encounter
--- OUTSIDE RECORDS SUMMARY | 2025-01-09 09:44 | XMS_ITS | Clinical Summary ---
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 profile from: 11/17/2021 shows a total cholesterol of: 108 triglycerides of: 85 HDL of: 34 and LDL of: 57 Currently on Aorvastatin 80 mg po daily started by cardiology . advised to try to adhere to a low cholesterol diet, counseled and educated about diet and exercise Resolved Problems Problem Noted Date Diagnosed Date Resolved Date HCC (hepatocellular carcinoma) 08/01/2024 08/01/2024 Stage 3b chronic kidney disease 08/01/2024 08/01/2024 Hypertensive emergency 07/30/202208/04 Assessment & Plan (07/30/2022 10:37 AM EST): Pt states he has not taken his medications for 3 days due to the fact the the Liver transplant clinic asked him to hold his meds while he was having some imaging done. Today has no chest pain, he only appears a little anxious, BP shows a Systolic of 220. EKG shows ST depression lateral leads. I have discussed with pt the need to be evaluated in the ER . Pt agreeable will be transported via ambulance Chronic hepatitis C 05/12/2012 08/01/20 Assessment & Plan (10/27/2022 10:52 AM EST): Under the care of ELBA Gomez, at [facility] Assessment & Plan (07/30/2022 10:11 AM EST): Under the care of ELBA Gomez, at [facility] Diabetes mellitus, type 2 02/01/2012 Assessment & Plan (07/30/2022 10:05 AM EST): Encounters Date Type Department Care Team Description 11/24/2024 Telephone [facility] [address] [place] [address] Shaun Tarango MD Nurse Triage 11/20/2024 Refill [facility] [address] [place] [address] Shaun Tarango MD 11/02/2024 Telephone [facility] [address] [place] [address] Shaun Tarango MD 10/26/2024 10:00 AM EST Telemedicine [facility] [address] [place] [address] Airam Chen, Neymar Type 2 diabetes mellitus with stage 3a chronic kidney disease, with long-term current use of insulin ([facility]) (Primary Dx) 10/26/2024 Travel 10/23/2024 Patient Outreach [facility] [address], [place] [phone] Shaun Tarango MD Pre-visit Planning (SDOH Screening negative and Tobacco screening negative) 10/19/2024 Telephone [facility] [address] [place] [address] Shaun Tarango MD Chart Prep from Last 3 Months Immunizations Immunization Administration Dates Next Due Hep A, Adult 08/02/2002,07/18/2001 Hep A, ped/adol, 2 dose 08/02/2002,07/18/2001 Hep B, adult 10/23/2010 Hib (PRP-OMP) 10/23/2010 Influenza injectable quadriv alent IIV4 with preservative 09/23/2017,05/07/2016 Influenza injectable quadriv alent preservative free 05/17/2015 Influenza, IIV3, injectable 05/24/2014, 1 Influenza, Split (incl. zunilda fied surface antigen) 06/28/2013,05/12/2012 Influenza, seasonal, injecta ble, preservative free 07/06/2006,09/03/2005,06/14/2001 Moderna Covid-19 Vaccine 12+ 05/01/2021,11/21/19 21,10/23/2020 PPD Test 08/04/2010 Pneumococcal Conjugate PCV 13 07/28/2016 Pneumococcal Polysaccharide PPSV23 08/03,10/23/2010,10/29/2005,07/01 TD (adult), 2 Lf tetanus tox oid, preservative free, adsorbed 10/29/2005 Tdap 05/07/2016,10/23/2010 Social History Tobacco Use Types Packs/Day Years Used Date Smoking Tobacco: Never Passive Smoke Exposure: Never Smokeless Tobacco: Never Tobacco Cessation:Counseling Given: Not Answered Depression Answer Date Recorded Patient Health Questionnaire-9 Score 10 08/01/2024 Patient Health Questionnaire-9 Score 10 08/01/2024 Last PHQ-9: Questionnaire Data Not on file 1 10/02/2023 Housing Stability Answer Date Recorded What is your housing situation today? I have maryuri watson 07/23/[address] you li ve. Do you have problems with any of the following? None of the above 07/23/2023 Food Insecurity Answer Date Recorded Within the [...] getting things needed for daily living? No 05/16/2024 Utilities Answer Date Recorded In the past 12 months, has t he electric, gas, oil or water company threatened to shut off services in your home? No 06/07/2023 Depression Answer Date Recorded Patient Health Questionnaire-2 Score 3 08/01/2024 Internet Access Answer Date Recorded Internet Access Q1 Yes 05/16/2024 Internet Access Q2 Not on file 05/16/2024 Sex and Gender Information Value Date Recorded Sex Assigned at Male 06/22/2022 10:14 AM EDT Legal Sex Male 10:14 AM EDT Gender Identity Male 06/22/2022 10:14 AM EDT Sexual Orientation Straight 06/22/2022 10 :14 AM EDT Last Filed Vital Signs Vital Sign Reading Time Taken Comments Blood Pressure 156/62 08/31/2024 10:31 AM EST Pulse 85 08/01/2024 10:00 AM EST Temperature 36.2 ??C (97.1 ??F) 08/01/2024 10:[address] Respiratory Rate 19 08/01/2024 10:00 AM EST Oxygen Saturation 98% 08/01/2024 10:00 AM EST Inhaled Oxygen Concentration - - Weight 71.2 kg (157 lb) 08/01/2024 10:00 AM EST Height 157.5 cm (5' 2 ) 08/01/2024 10:00 AM EST Body Mass Index 28.72 08/01/2024 10:00 AM EST Plan of Treatment Upcoming Encounters Date Type Department Care Team (Late st Contact Info) Description 01/18/2025 10:30 AM EDT Nurse Only [facility] [address] [place] [address] 02/15/2025 9:15 AM EDT Office Visit [address] [phone] Shaun Tarango MD [address] [place], [place] [phone] 03/08/2025 9:30 AM EDT Telemedicine [address] [phone] Airam Chen, MinaD [address] [place], [place] [phone] Health Maintenance Due Date Last Done Comments CT Colonography 1950 FIT DNA/Cologuard 1950 FIT 1950 FOBT 1950 Sigmoidoscopy 1950 Diabetes: Foot Exam 1960 Eye Exam 1960 RSV Patients and Patients Aged 60 years or older (1 - Risk 60-74 years 1-dose series) 2010 Hepatitis B Vaccines (2 of 3 - Risk 3-dose series) 11/20/2010 10/23/2010 Pneumococcal Vaccine: 50+ Years (4 of 4 - PCV20 or PCV21) 07/28/2021 07/28/2016, 08/03/2011, 10/23/2010, Additional history exists Colonoscopy 11/10/2023 11/09/2022, 10/22, 02/09/2022 Colorectal Cancer Screening 11/10/2023 COVID-19 Vaccine ( - season) 2024 05/01/2021, 11/20/2020, 10/23/2020 Influenza Vaccine (#1) 2024 8, 05/07/2016, 05/17/2015, Additional history exists Lipid Panel 09/21/2024 09/21/2023, 10/22, 05/01/2021 Zoster Vaccines (2 of 2) 01/10/2025 11/15/2024 Diabetes: Hemoglobin A1C 01/30/2025 024, 01/24/2024, 08/26/2023, Additional history exists Alcohol/Substance Use Screening 08/01/2025 08/01/2024 Depression Screening 08/01/2025 08/01/2024, 08/01/20 24 Tobacco Screening 08/31/2025 08/31/2024 SDOH Screening 10/23/2025 10/23/2024 DTaP/Tdap/Td Vaccines (3 - Td or Tdap) 05/07/2026 05/07/2016, 10/23/2010, 10/29/2005 Hepatitis A Vaccines Completed 08/02/2002, 08/02/2002, 07/18/2001, Additional history exists HIB Vaccines Aged Out 10/23/2010 No longer [...] patient's age to complete this topic Meningococcal Vaccine Aged Out No jose luis marilu eligible based on patient's age to complete this topic RSV under 20 months Aged Out No longe r eligible based on patient's age to complete this topic Rotavirus Vaccines Aged Out No longer eligible based on patient's age to complete this topic Goals Goal Patient Goal Type Associated Problems Recent Progress Patient-Stated? Author Blood Pressure < 140/90 Blood Pressure Essential hypertension 156/62(2024 10:31 AM EST) No Tavon Villa, Neymar Procedures Procedure Name Priority Date/Time Associated Diagnosis Comments POCT GLYCATED HEMOGLOBIN, TOTAL Routine 08/01/2024 10:04 AM EST Type 2 diabetes mellitus with stage 3a chronic kidney disease, with long-term current use of insulin ([facility]) LIPID PANEL, STANDARD Routine 09/21/2023 9:12 AM EST HM COLONOSCOPY Routine 11/09/2022 10:24 AM EDT from Last 3 Months or Most Recently Relevant to Health Maintenance Results * (ABNORMAL) POCT HGB A1C (08/01/2024 10:04 AM EST) Hemoglobin A1C 6.8(A) 4.0 - 6.0 % QC Media Lot # [id number] Lot# Expiration Date [id number] Blood 08/01/2024 10:0 4 AM EST Shaun White MD POINT OF CARE TEST EN TER/EDIT ORDERABLES Final Result * (ABNORMAL) Lipid Panel, Standard (09/21/2023 9:12 AM EST) Triglycerides 69 <150 mg/dL [facility] Comment:Desirable Triglyceri de: less than 150 mg/dLBorderline High Triglyceride 150-199 mg/dLHigh Triglyceride: 200-499 mg/dLVery High Triglyceride: greater than or equal to 5OO mg/dL Cholesterol 120 <200 mg/dL [facility] Comment:Desirable Cholestero l: less than 200 mg/dLBorderline High Cholesterol: 200-239 mg/dLHigh Cholesterol: greater than 239 mg/dL LDL Cholesterol Calculated 74 <100 mg/dL [facility] Comment:Desirable LDL: less than 100 mg/dLNear Optimal/Above Optimal LDL: 110- 129 mg/dLBorderline High LDL: 130-159 mg/dLHigh LDL: 160-189 mg/dLVery High LDL: greater than or equal to 190 mg/dL HDL Cholesterol 33(L) >40 mg/dL [facility] Comment:Desirable HDL: great er than 40 mg/dL Note: This HDL assay may give artificially low results in patients with liver disease. 09/21/2023 9:12 AM EST 09/21/2023 11:41 AM EST Shaun White MD LAB BLOOD ORDERABLES Final Result [facility] [address] [place] [phone] * Hm Colonoscopy (11/09/2022 10:24 AM EDT) Colonoscopy Normal Normal Narrative Lissette Carl - 11/09/2022 10:24 AM EDT Recommended 1 year follow up due to poor prep us Historical Provider HEALTH MAINTENANCE Edited Result - Final from Last 3 Months or Most Recently Relevant to Health Maintenance Insurance MEDICARE [facility] Care Teams Life Enrichment Director Relationship Specialty Start Date End Date Shaun Tarango MD [address] [place] [address] PCP - General Internal Medicine 04/25/14 Airam Chen PharmD [address] [place] [address] Pharmacist Internal Medicine 08/31/24
== END 2025-01-09 09:36 | disposition home or self-care (01) ==
LOC: HO.HCS 09:05
PROVIDERS: PCP Internal Medicine; Visit Provider Internal Medicine
DX: I25.10 Atherosclerotic heart disease of native coronary artery without angina pectoris (principal); Z95.5 Presence of coronary angioplasty implant and graft; I21.4 Non-ST elevation (NSTEMI) myocardial infarction; I10 Essential (primary) hypertension; Z94.4 Liver transplant status
CPT/HCPCS: 93010; 99214

== ENCOUNTER → 2025-01-09 09:04 | Outpatient (BNVA) | payer MEDICARE, MEDICAID, SELFPAY | PROVIDERS: PCP Internal Medicine; Visit Provider Internal Medicine | DX: I25.10 Atherosclerotic heart disease of native coronary artery without angina pectoris (principal); I21.4 Non-ST elevation (NSTEMI) myocardial infarction; I25.2 Old myocardial infarction; I10 Essential (primary) hypertension; Z94.4 Liver transplant status; Z95.5 Presence of coronary angioplasty implant and graft | CPT/HCPCS: 93005; 99212 ==

== ENCOUNTER 2025-06-12 12:03 | Outpatient (REF) | payer MEDICARE, MEDICAID, SELFPAY ==
--- OUTSIDE RECORDS SUMMARY | 2025-06-12 11:30 | XMS_ITS | Encounter Summary ---
Author Organization [employer] Address [address] [facility] [address] [place] [address] Care Team Providers Care Family Support Specialist Name Role Phone Shaun Tarango MD Primary Care Provide r Reason for Visit * Reason Comments Follow-up Encounter Details Date Type Department Care Team ([facility] st Contact Info) Description 06/12/2025 11:30 AM EDT Office Visit [facility] [address] [place], [place] [phone] Shaun Tarango MD [address] [place], [place] [phone] Type 2 diabetes mellitus with stage 3a chronic kidney disease, with long-term current use of insulin (HCC) (Primary Dx); Essential hypertension; Mixed hyperlipidemia; S/P liver transplant (CMS/HCC) (HCC); Preventative health care Social History Tobacco Use Types Packs/Day Years Used Date Smoking Tobacco: Never Passive Smoke Exposure: Never Smokeless Tobacco: Never Depression Answer Date Recorded Patient Health Questionnaire-9 Score 0 06/12/2025 Patient Health Questionnaire-9 Score 0 06/12/2025 Last PHQ-9: Questionnaire Data Not on file 1 Housing Stability Answer Date Recorded What is your housing situation today? I have maryuri walter 07/23/[address] you li [...] Date Recorded Patient Health Questionnaire-2 Score 0 06/12/2025 Internet Access Answer Date Recorded Internet Access Q1 Yes 05/16/2024 Internet Access Q2 Not on file 05/16/2024 Sex and Gender Information Value Date Recorded Sex Assigned at Male 06/22/2022 10:14 AM EDT Legal Sex Male 10:14 AM EDT Gender Identity Male 06/22/2022 10:14 AM EDT Sexual Orientation Straight 06/22/2022 10 :14 AM EDT documented as of this encounter Last Filed Vital Signs Vital Sign Reading Time Taken Comments Blood Pressure 142/66 06/12/2025 11:32 AM EDT Pulse 83 06/12/2025 11:32 AM EDT Temperature 35.1 C (95.1 F) 06/12/2025 11:32 AM EDT Respiratory Rate 20 06/12/2025 11:32 AM EDT Oxygen Saturation 98% 06/12/2025 11:32 AM EDT Inhaled Oxygen Concentration - - Weight 68.3 kg (150 lb 9.6 oz) 06/12/2025 11:32 AM EDT Height - - Body Mass Index 27.55 02/15/2025 9:18 AM EDT documented in this encounter Functional Status * Over the past 2 weeks, how often have you been bothered by any of the following problems? Question Answer Date of Assessment Author Patient Health Questionnaire-2 Score 0 05/24 11:33 AM EDT Roxana White MA * Little interest or pleasure in doing things Answer Date of Assessment Author Not at all 06/12/2025 11:33 AM EDT Stacy White MA * Feeling down, depressed, or hopeless Answer Date of Assessment Author Not at all 06/12/2025 11:33 AM EDT Stacy White MA * Trouble falling or staying asleep, or sleeping too much Answer Date of Assessment Author Not at all 06/12/2025 11:33 AM Stacy Saleh MA * Feeling tired or having little energy Answer Date of Assessment Author Not at all 06/12/2025 11:33 AM Stacy Saleh MA * Poor appetite or overeating Answer Date of Assessment Author Not at all 06/12/2025 11:33 AM Stacy Saleh MA * Feeling bad about yourself - or that you are a failure or have let yourself or your family down Answer Date of Assessment Author Not at all 06/12/2025 11:33 AM Stacy Saleh MA * Trouble concentrating on things, such as reading the newspaper or watching television Answer Date of Assessment Author Not at all 06/12/2025 11:33 AM Stacy Saleh MA * Moving or speaking so slowly that other people could have noticed? Or the opposite - being so fidgety or restless that you have been moving around a lot more than usual. Answer Date of Assessment Author Not at all 06/12/2025 11:33 AM Stacy Saleh MA * Thoughts that you would be better off or hurting yourself in some way Answer Date of Assessment Author Not at all 06/12/2025 11:33 AM Stacy Saleh MA * Patient Health Questionnaire-9 Score Answer Date of Assessment Author 0 06/12/2025 11:33 AM Stacy Saleh MA documented as of this encounter Progress Notes * Shaun White MD - 06/12/2025 11:30 AM EDT Images from the original note were not included. SUBJECTIVE Shaji Ramirez is a 74 y.o. male who presents for Follow-up. Shaji Ramirez, 74 years Liver Transplant Follow-up - Under regular follow-up for liver transplant - Blood tests performed as part of transplant follow-up - Last transplant clinic visit approximately one week ago Prostate and Cholesterol Screening - Has not had blood tests for prostate or cholesterol in over two years Ophthalmology Follow-up - Last eye doctor visit was last year - Sees commercial management accountant annually HPI Review of Systems Constitutional: Negative for fever. HENT: Negative for sore throat. Respiratory: Negative for cough and shortness of breath. Cardiovascular: Negative for chest pain. Gastrointestinal: Negative for abdominal pain. Neurological: Negative for headaches. Allergies[1] OBJECTIVE Vitals: 06/12/25 1132 BP: (!) 142/66 BP Location: Left arm Patient Position: Sitting BP Cuff Size: Adult Pulse: 83 Resp: 20 Temp: 95.1 ??F (35.1 ??C) TempSrc: Temporal SpO2: 98% Weight: 150 lb 9.6 oz (68.3 kg) Physical Exam Vitals reviewed. Constitutional: Appearance: Normal appearance. HENT: Head: Normocephalic and atraumatic. Right Ear: External ear normal. Left Ear: External ear normal. Nose: Nose normal. Mouth/Throat: Mouth: Mucous membranes are moist. Eyes: Conjunctiva/sclera: Conjunctivae normal. Cardiovascular: Rate and Rhythm: Normal rate and regular rhythm. Pulmonary: Effort: Pulmonary effort is normal. Breath sounds: Normal breath sounds. Skin: General: Skin is warm. Neurological: Mental Status: He is alert. Mental status is at baseline. Assessment/Plan Problem List Items Addressed This Visit Type 2 diabetes mellitus with stage 3a chronic kidney disease, with long-term current use of insulin (HCC) - Primary Patient is here for a follow up DM today: controlled Hgb A1c 06/12/2025: 6.5 Regimen Metformin XR 500 mg po BID Pt has CKD Oph: Pt tells me he was seen by Dr. Coburn last year Foot check risk of zero Pt is being followed at [facility] Endocr[facility]ology.They discontinued his lantus Relevant Orders POCT glucose manually resulted (Completed) POCT glycosylated hemoglobin (Hgb A1c) (Completed) Essential hypertension (Chronic) Patient is here for a follow up for HTN Blood pressure today: stable He is Currently on Hydralazine 25 mg BID , Labetalol 300 mg BID, Losartan 25 mg po daily and Amlodipine 5 mg po daily Of note his forms builder stopped his Carvedilol, No longer on Hydrochlorothiazide, Lisinopril and Nadolol Most recent electrolytes, Bun and Creatinine done on: 11/28/2024 ( [facility] Outside Information Contains abnormal data Comprehensive metabolic panel Specimen: Blood - Venous blood specimen (specimen) Component Ref Range & Units 13 d ago Comments Sodium 133 - 145 mmol/L 141 Potassium 3.5 - 5.5 mmol/L 4.8 Chloride 96 - 110 mmol/L 112 High CO2 21 - 32 mmol/L 21 Anion Gap 3 - 11 8 Glucose 70 - 100 mg/dL 111 High BUN 5 - 25 mg/dL 34 High Creatinine 0.70 - 1.30 mg/dL 2.11 High eGFR >=60 mL/min/1.73m2 32 Low Calculation based on the Chronic Kidney Disease Epidemiology Collaboration (CKD-EPI) equation refit without adjustment for race. BUN/Creatinine Ratio 16.1 Calcium 8.5 - 10.5 mg/dL 9.3 AST (SGOT) 10 - 42 unit/L 14 ALT (SGPT) 10 - 60 unit/L 10 Alkaline Phosphatase 42 - 121 unit/L 56 Total Protein 6.0 - 8.0 g/dL 6.7 Albumin 3.2 - 5.0 g/dL 4.1 Total Bilirubin 0.0 - 1.4 mg/dL 0.6 Resulting Agency [facility] Specimen Collected: 05/30/25 08:38 Performed by: [facility] Last Resulted: 05/30/25 09:36 Received From: [employer] Result Received: 06/11/25 09:40 Pt is under the care of Nephrology, last seen in 11/28/2024. Plan: Continue current regimen as per Nephrology, who recommended a sleep study Bring BP monitor next visit Follow up 3 months Hyperlipidemia Patient with elevated lipids. Most recent lipid profile from: Lab Results Component Value Date TRIG 69 09/21/2023 CHOL 120 09/21/2023 LDLCHOLCAL 74 09/21/2023 HDL 33 (L) 09/21/2023 Currently on Aorvastatin 80 mg po daily started by cardiology . 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 Under the care of Liver transplant clinic at [facility] On a regimen of: prograf Off Coumadin Last visit 06/05/2025 per their note: He has not had evidence of recurrent HCC surveillance imagingincluding CT chest and CT 3-phase in February 2024, and they will plan to order repeat CT 3-phase todaygiven 2x areas of arterial enhancement (likely perfusional). They will plan for repeat blood work every 3-4 months if results remains stable and arrange for a follow-up visit in 1 year. Their plan is to continue: Continue tacrolimus 2mg in AM and 1mg in PM for now. Will repeat blood work today for tacrolimus level then every 4-5 months if stable As per his HCC history: No viable tumor noted on explantCT chest and CT 3-phase abdomen with no evidence of HCC in February 2024 CT 3-phase with small hyperenhancing lesions, will order repeat CT 3-phase today No further imagingindicated if CT surveillance remains stable without recurrent HCC. Repeat AFP annually, previously normal in AFP in May 2025 Preventative health care PSA 10/16/2020: 2.3, Will repeat, he again did not do it Pt had Colonoscopy 11/09/2022: Incomplete unable to visualize sigmoid and ascending colon, melanosiscoli, 5 mm polyp. GI recommended to repeat Colonoscopy with 2 day Go-lytely due to incomplete colonoscopy Pt wanted to have colonoscopy done in [place] instead of [place]. He was referred and seen 12/16/2023 but did not want to wait months to have colonoscopy done, so this was never arranged. Today Pt tells me he reschedule his colonoscopy at [facility] (he went alone and they cancelled procedure) Pt declines any vaccines Relevant Orders PSA, Screen This note was drafted using Ambient (AI) technology. The patient/patient's guardian has been informed and has consented to the use of this technology: Yes No future appointments. [1] No Known Allergies documented in this encounter Miscellaneous Notes * Assessment & Plan Note - Shaun White MD - 06/12/2025 11:49 AM EDT Associated Problem(s): Preventative health care PSA 10/16/2020: 2.3, Will repeat, he again did not do it Pt had Colonoscopy 11/09/2022: Incomplete unable to visualize sigmoid and ascending colon, melanosiscoli, 5 mm polyp. GI recommended to repeat Colonoscopy with 2 day Go-lytely due to incomplete colonoscopy Pt wanted to have colonoscopy done in [place] instead of [place]. He was referred and seen 12/16/2023 but did not want to wait months to have colonoscopy done, so this was never arranged. Today Pt tells me he reschedule his colonoscopy at [facility] (he went alone and they cancelled procedure) Pt declines any vaccines * Assessment & Plan Note - Shaun White MD - 06/12/2025 11:48 AM EDT Associated Problem(s): Hyperlipidemia Patient with elevated lipids. Most recent lipid profile from: Lab Results Component Value Date TRIG 69 09/21/2023 CHOL 120 09/21/2023 LDLCHOLCAL 74 09/21/2023 HDL 33 (L) 09/21/2023 Currently on Aorvastatin 80 mg po daily started by cardiology . advised to try to adhere to a low cholesterol diet, counseled and educated about diet and exercise Asked to repeat Lipid profile * Assessment & Plan Note - Shaun White MD - 06/12/2025 11:47 AM EDT Associated Problem(s): Essential hypertension Images from the original note were not included. Patient is here for a follow up for HTN Blood pressure today: stable He is Currently on Hydralazine 25 mg BID , Labetalol 300 mg BID, Losartan 25 mg po daily and Amlodipine 5 mg po daily Of note his forms builder stopped his Carvedilol, No longer on Hydrochlorothiazide, Lisinopril and Nadolol Most recent electrolytes, Bun and Creatinine done [facility]: [facility]/28/2024 [facility] Outside Information Contains abnormal data Comprehensive metabolic panel Specimen: Blood - Venous blood specimen (specimen) Component Ref Range & Units 13 d ago Comments Sodium 133 - 145 mmol/L 141 Potassium 3.5 - 5.5 mmol/L 4.8 Chloride 96 - 110 mmol/L 112 High CO2 21 - 32 mmol/L 21 Anion Gap 3 - 11 8 Glucose 70 - 100 mg/dL 111 High BUN 5 - 25 mg/dL 34 High Creatinine 0.70 - 1.30 mg/dL 2.11 High eGFR >=60 mL/min/1.73m2 32 Low Calculation based on the Chronic Kidney Disease Epidemiology Collaboration (CKD-EPI) equation refit without adjustment for race. BUN/Creatinine Ratio 16.1 Calcium 8.5 - 10.5 mg/dL 9.3 AST (SGOT) 10 - 42 unit/L 14 ALT (SGPT) 10 - 60 unit/L 10 Alkaline Phosphatase 42 - 121 unit/L 56 Total Protein 6.0 - 8.0 g/dL 6.7 Albumin 3.2 - 5.0 g/dL 4.1 Total Bilirubin 0.0 - 1.4 mg/dL 0.6 Resulting Agency [facility] Specimen Collected: 05/30/25 08:38 Performed by: [facility] Last Resulted: 05/30/25 09:36 Received From: [employer] Result Received: 06/11/25 09:40 Pt is under the care of Nephrology, last seen in 11/28/2024. Plan: Continue current regimen as per Nephrology, who recommended a sleep study Bring BP monitor next visit Follow up 3 months * Assessment & Plan Note - Shaun White MD - 06/12/2025 11:45 AM EDT Associated Problem(s): Type 2 diabetes mellitus with stage 3a chronic kidney disease, with long-term current use of insulin (HCC) Patient is here for a follow up DM today: controlled Hgb A1c 06/12/2025: 6.5 Regimen Metformin XR 500 mg po BID Pt has CKD Oph: Pt tells me he was seen by Dr. 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 Under the care of Liver transplant clinic at [facility] On a regimen of: prograf Off Coumadin Last visit 06/05/2025 per their note: He has not had evidence of recurrent HCC surveillance imagingincluding CT chest and CT 3-phase in February 2024, and they will plan to order repeat CT 3-phase todaygiven 2x areas of arterial enhancement (likely perfusional). They will plan for repeat blood work every 3-4 months if results remains stable and arrange for a follow-up visit in 1 year. Their plan is to continue: Continue tacrolimus 2mg in AM and 1mg in PM for now. Will repeat blood work today for tacrolimus level then every 4-5 months if stable As per his HCC history: No viable tumor noted on explantCT chest and CT 3-phase abdomen with no evidence of HCC in February 2024 CT 3-phase with small hyperenhancing lesions, will order repeat CT 3-phase today No further imagingindicated if CT surveillance remains stable without recurrent HCC. Repeat AFP annually, previously normal in AFP in May 2025 documented in this encounter Plan of Treatment Scheduled Orders Name Type Priority Associated Diagnoses Orde r Schedule PSA, Screen Lab Routine Preventative health care Ordered: 06/12/2025 Lipid Panel, Standard Lab Routine Mixed hyperlipidemia Ordered: 06/12/2025 documented as of this encounter Goals Goal Patient Goal Type Associated Problems Recent Progress Patient-Stated? Author Blood Pressure < 140/90 Blood Pressure Essential hypertension 142/66(2024 11:32 AM EDT) No Tavon Villa, PharmD documented as of this encounter Procedures Procedure Name Priority Date/Time Associated Diagnosis Comments POCT GLUCOSE Routine 06/12/2025 12:02 PM EDT Type 2 diabetes mellitus with stage 3a chronic kidney disease, with long-term current use of insulin (HCC) POCT GLYCOSYLATED HEMOGLOBIN (HGB A1C) Routine 06/12/2025 12:01 PM EDT Type 2 diabetes mellitus with stage 3a chronic kidney disease, with long-term current use of insulin (HCC) documented in this encounter Results * POCT glucose manually resulted (06/12/2025 12:02 PM EDT) Glucose Blood, POC 168 60 - 200 mg/dL QC Media Lot # [id number] Lot# Expiration Date [id number] Blood Capillary blood specimen / Unknown 06/12/2025 12:02 PM EDT us Shaun White MD POINT OF CARE TEST EN TER/EDIT ORDERABLES Final Result * (ABNORMAL) POCT glycosylated hemoglobin (Hgb A1c) (06/12/2025 12:01 PM EDT) Hemoglobin A1C 6.1(A) 4.0 - 5.7 % QC Media Lot # [id number] Lot# Expiration Date [id number] Blood Capillary blood specimen / Unknown 06/12/2025 12:01 PM EDT us Shaun White MD POINT OF CARE TEST EN TER/EDIT ORDERABLES Final Result documented in this encounter Visit Diagnoses Diagnosis Type 2 diabetes mellitus with stage 3a chronic kidney disease, with long-term current use of insulin (HCC)- Primary Essential hypertension Unspecified essential hypertension Mixed hyperlipidemia S/P liver transplant ([facility]/HCC) (HCC) Preventative health care Routine general medical examination at a health care facility documented in this encounter Additional Health Concerns Assessment Noted Time PHQ-9 Depression Total Score: 0 06/12/20 25 11:33 AM EDT documented as of this encounter Care Teams Family Support Specialist Relationship Specialty Start Date End Date Shaun Tarango MD [address] [place] [id number] PCP - General Internal Medicine 04/25/14 documented as of this encounter
[2025-06-12 14:46] LABS: Vitamin B12 302 pg/mL (200-900)
--- OUTSIDE RECORDS SUMMARY | 2025-06-12 15:29 | XMS_ITS | Encounter Summary ---
Author Organization [employer] Address [address] [place] [address] Care Team Providers Care Assistant Commissioner Name Role Phone Shaun Tarango MD Primary Care Provide r Encounter Details Date Type Department Care Team (Latest Contact Info) Description 06/12/2025 Travel Social History Tobacco Use Types Packs/Day Years Used Date Smoking Tobacco: Never Passive Smoke Exposure: Never Smokeless Tobacco: Never Depression Answer Date Recorded Patient Health Questionnaire-9 Score 0 06/12/2025 Patient Health Questionnaire-9 Score 0 06/12/2025 Last PHQ-9: Questionnaire Data Not on file 1 Housing Stability Answer Date Recorded What is your housing situation today? I have maryuribandar watson 07/23/[address] you [...] AM EDT documented as of this encounter Functional Status * Over the past 2 weeks, how often have you been bothered by any of the following problems? Question Answer Date of Assessment Author Patient Health Questionnaire-2 Score 0 05/24 11:33 AM Roxana Saleh MA * Little interest or pleasure in doing things Answer Date of Assessment Author Not at all 06/12/2025 11:33 AM Stacy Saleh MA * Feeling down, depressed, or hopeless Answer Date of Assessment Author Not at all 06/12/2025 11:33 AM Stacy Saleh MA * Trouble falling or staying asleep, [...] 11:33 AM EDT Stacy White MA * Patient Health Questionnaire-9 Score Answer Date of Assessment Author 0 06/12/2025 11:33 AM EDT Stacy White MA documented as of this encounter Plan of Treatment Not on file documented as of this encounter Goals Goal Patient Goal Type Associated Problems Recent Progress Patient-Stated? Author Blood Pressure < 140/90 Blood Pressure Essential hypertension 142/66(2024 11:32 AM EDT) No Tavon Villa, MinaD documented as of this encounter Visit Diagnoses Not on filedocumented in this encounter Additional Health Concerns Assessment Noted Time PHQ-9 Depression Total Score: 0 06/12/20 25 11:33 AM EDT documented as of this encounter Care Teams Assistant Commissioner Relationship Specialty Start Date End Date Shaun Tarango MD [address] [place] [address] PCP - General Internal Medicine 04/25/14 documented as of this encounter
--- OUTSIDE RECORDS SUMMARY | 2025-06-12 15:29 | XMS_ITS | Encounter Summary ---
Author Organization [employer] Address [address] [address] [place] [address] Care Team Providers Care Substance Abuse Specialist Name Role Phone Shaun Tarango MD Primary Care Provide r Reason for Visit * Reason Onset Date Comments chartprep 06/11/2025 Encounter Details Date Type Department Care Team ([facility] st Contact Info) Description 06/11/2025 Telephone [facility] [address] [place], [place] [phone] Shaun Tarango MD [address] [place], [place] [phone] chartprep Social History Tobacco Use Types Packs/Day Years [...] AM EDT documented as of this encounter Miscellaneous Notes * Telephone Encounter - Roxana White MA - 06/11/2025 9:40 AM EDT ..Chart Prep Labs: done Images: not applicable Vaccines due: Covid Due, Hep B Due, PCV20 Due, Flu Due, RSV in Pharmacy Due, and Shingles in pharmacy Due Referrals: Dermatology Requested notes by Fax. Waiting for notes. Screenings: Colonoscopy , Eye Exam, and Foot Exam Overdue care gaps: A1C, Glucose, Sbirt, PHQ9, and GAD7 documented in this encounter Plan of Treatment Not on file documented as of this encounter Goals Goal Patient Goal Type Associated Problems Recent Progress Patient-Stated? Author Blood Pressure < 140/90 Blood Pressure Essential hypertension 142/66(2024 11:32 AM EDT) No Tavon Villa, PharmD documented as of this encounter Visit Diagnoses Not on filedocumented in this encounter Additional Health Concerns Assessment Noted Time PHQ-9 Depression Total Score: 10 024 10:02 AM EST documented as of this encounter Care Teams Substance Abuse Specialist Relationship Specialty Start Date End Date Shaun Tarango MD [address] [place] [address] PCP - General Internal Medicine 04/25/14 documented as of this encounter
--- OUTSIDE RECORDS SUMMARY | 2025-06-12 15:29 | XMS_ITS | Encounter Summary ---
Author Organization [employer] [facility] Address [address] [facility] [address] [place] [address] Care Team Providers Care Load Builder Name Role Phone Shaun Tarango MD Primary Care Provide r Tavon Villa PharmD Unavailable [phone] Airam Chen PharmD Unavailable [phone] Encounter Details Date Type Department Care Team (Late st Contact Info) Description 07/15/2022 Abstract [facility] [address] [place], [place] [phone] Shaun Tarango MD [address] [place] [address] Social History Tobacco Use Types Packs/Day Years [...] on file documented as of this encounter Procedures Procedure Name Priority Date/Time Associated Diagnosis Comments COLONOSCOPY Routine 02/09/2022 documented in this encounter Results * Colonoscopy (02/09/2022) Colonoscopy Normal Historical Provider HEALTH MAINTENANCE Final Result documented in this encounter Visit Diagnoses Not on filedocumented in this encounter Care Teams Load Builder Relationship Specialty Start Date End Date Shaun Tarango MD [address] [place] [phone] PCP - General Internal Medicine 04/25/14 Tavon Villa, MinaD [address] [place] [phone] Pharmacist Internal Medicine 11/04/23 08/30/24 Airam Chen PharmD [address] [place] [phone] Pharmacist Internal Medicine 08/31/24 03/07/25 documented as of this encounter
--- OUTSIDE RECORDS SUMMARY | 2025-06-12 15:30 | XMS_ITS | Encounter Summary ---
Author Organization [employer] Address [address] [facility] [address] [place] [address] Care Team Providers Care Slasher Tender Helper Name Role Phone Shaun Tarango MD Primary Care Provide r Tavon Villa PharmD Unavailable [phone] Airam Chen PharmD Unavailable [phone] Reason for Visit * Reason Comments Med Refill Encounter Details Date Type Department Care Team (Late st Contact Info) Description 06/07/[address] [facility] [address] [place], [place] [phone] Suzie Zamarripa MD [address] [place], [place] [phone] Social History Tobacco Use Types Packs/Day Years [...] on file documented as of this encounter Visit Diagnoses Not on filedocumented in this encounter Care Teams Slasher Tender Helper Relationship Specialty Start Date End Date Shaun Tarango MD [address] [place] [phone] PCP - General Internal Medicine 04/25/14 Tavon Villa, MinaD [address] [place] [phone] Pharmacist Internal Medicine 11/04/23 08/30/24 Airam Chen PharmD [address] [place] [phone] Pharmacist Internal Medicine 08/31/24 03/07/25 documented as of this encounter
--- OUTSIDE RECORDS SUMMARY | 2025-06-12 15:30 | XMS_ITS | Encounter Summary ---
Author Organization [facility] Address [address] [facility] [address] [place] [address] Care Team Providers Care Kaiawhina Kohanga Reo Name Role Phone Shaun Tarango MD Primary Care Provide r Tavon Villa PharmD Unavailable [phone] Airam Chen PharmD Unavailable [phone] Encounter Details Date Type Department Care Team (Late st Contact Info) Description 12/31/[address] [facility] [address] [place], [place] [phone] Shaun Tarango MD [address] [place] [address] Social History Tobacco Use Types Packs/Day Years [...] Edited Result - Final * Mammography (11/09/2022) HM Mammogram normal Anatomical Region Laterality Modality Other 11/09/2022 Narrative 11/09/2022 10:18 AM EDT Incorrect order ( discard order ) Historical Provider [facility] Edited Result - Final documented in this encounter Visit Diagnoses Not on filedocumented in this encounter Care Teams Kaiawhina Kohanga Reo Relationship Specialty Start Date End Date Shaun Tarango MD [address] [place] [phone] PCP - General Internal Medicine 04/25/14 Tavon Villa, MinaD [address] [place] [phone] Pharmacist Internal Medicine 11/04/23 08/30/24 Airam Chen PharmD [address] [place] [phone] Pharmacist Internal Medicine 08/31/24 03/07/25 documented as of this encounter
--- OUTSIDE RECORDS SUMMARY | 2025-06-12 15:30 | XMS_ITS | Clinical Summary ---
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 8 Active Docusate Sodium (DSS) 100 MG capsule Take 1 capsule by mouth every 12 (twelve) hours. 8 Active tacrolimus (Prograf) 1 MG capsule Take 2 mg by mouth. 2 capsules AM and 1 capsule PM 2 Active losartan (Cozaar) 25 MG tablet Take 25 mg by mouth Once per day. 2 Active hydrALAZINE (Apresoline) 25 MG tablet Take 25 mg by mouth 2 times daily. 2 Active senna (Senokot) 8.6 MG tablet Take 2 tablets by mouth at bedtime. 3 Active metFORMIN (Glucophage) 500 MG tablet Take 500 mg by mouth 2 times daily. 4 Active Blood Pressure kit Use as directed 1 kit 5 Active glucose blood (FREESTYLE LITE) test strip Use once daily to monitor blood sugar 50 each 5 5 Active TRUEplus Lancets 33G misc Use to test blood sugar 1 time(s) daily 100 each 3 5 Active magnesium oxide-pyridoxi ne (Beelith) 362-20 MG tablet Take 1 tablet by mouth Once per day. Active cholecalcifero l VITAMIN D (Vitamin D-3) 50 MCG (2000 UT) capsule Take 2,000 Units by mouth Once per day. Active amLODIPine-meghann rvastatin (Caduet) 10-80 MG tablet Take 1 tablet by mouth Once per day. 30 tablet 11 5 026 Active Alcohol Swabs (Alcohol Prep) 70 % pads Use once daily when checking BG 100 each 3 5 Active labetalol (Normodyne) 300 MG tablet Take 1 tablet (300 mg) by mouth 2 times daily. 180 tablet 3 5 026 Active Aspirin Low Dose 81 MG EC tablet TAKE 1 TABLET BY MOUTH EVERY MORNING 90 tablet 1 5 Active Aspirin Low Dose 81 MG EC tablet TAKE 1 TABLET BY MOUTH EVERY MORNING 90 tablet 1 5 025 Discontinued Active Problems Problem Noted Date Diagnosed Date Preventative health care 12/01/2022 Overview (10/27/2023): Adherence: Patient does well with managing medications but has difficulty obtaining refills from doctors offices. OTC Items: None Other medications: - Omeprazole Immunizations Due: - PCV20, RSV (age > 60 yo) , and Shingrix series (age > 50 yo) Assessment & Plan (06/12/2025 11:49 AM EDT): PSA 10/16/2020: 2.3, Will repeat, he again did not do it Pt had Colonoscopy 11/09/2022: Incomplete unable to visualize sigmoid and ascending colon, melanosis coli, 5 mm polyp. GI recommended to repeat Colonoscopy with 2 day Go-lytely due to incomplete colonoscopy Pt wanted to have colonoscopy done in [place] instead of [place]. He was referred and seen 12/16/2023 but did not want to wait months to have colonoscopy done, so this was never arranged. Today Pt tells me he reschedule his colonoscopy at [facility] (he went alone and they cancelled procedure) Pt declines any vaccines Assessment & Plan (02/15/2025 9:37 AM EDT): PSA 10/16/2020: 2.3, Will repeat Pt had Colonoscopy 11/09/2022: Incomplete unable to visualize sigmoid and ascending colon, melanosis coli, 5 mm polyp. GI recommended to repeat Colonoscopy with 2 day Go-lytely due to incomplete colonoscopy Pt wanted to have colonoscopy done in [place] instead of [place]. He was referred and seen 12/16/2023 but did not want to wait months to have colonoscopy done, so this was never arranged. Today Pt tells me he reschedule his colonoscopy at [facility] (he went alone and they cancelled procedure) Pt declines any vaccines Assessment & Plan (08/01/2024 10:11 AM EST): PSA 10/16/2020: 2.3 Pt had Colonoscopy 11/09/2022: Incomplete unable to visualize sigmoid and ascending colon, melanosis coli, 5 mm polyp. GI recommended to repeat Colonoscopy with 2 day Go-lytely due to incomplete colonoscopy Pt wanted to have colonoscopy done in [place] instead of [place]. He was referred and seen 12/16/2023 but did not want to wait months to have colonoscopy done, so this was never arranged. Pt declines any vaccines Assessment & Plan (10/27/2023 5:07 PM EST): Assessment: - Due for immunizations - Medication Management assistance required Plan: - START medboxes at [facility] 10/26/2023 Assessment & Plan (08/26/2023 10:16 AM EST): Pt had Colonoscopy 11/09/2022: Incomplete unable to visualize sigmoid and ascending colon, melanosis coli, 5 mm polyp. GI recommended to repeat Colonoscopy with 2 day Go-lytely due to incomplete colonoscopy Pt wants to have colonoscopy done in [place] instead of [place], will refer today Assessment & Plan (12/01/2022 9:57 AM EDT): Pt had Colonoscopy 11/09/2022: Incomplete unable to visualize sigmoid and ascending colon, melanosis coli, 5 mm polyp. Pathology pending. GI recommended to repeat Colonoscopy with 2 day Go-lytely due to incomplete colonoscopy History of hepatitis C 11/23/2022 Assessment & Plan (08/01/2024 10:00 AM EST): Under the care of [facility], last visit 11/2023 s/p liver transplant Coronary artery disease invo lving [place] coronary artery of [place] heart without angina pectoris 07/30/2022 Assessment & Plan (02/15/2025 9:13 AM EDT): Pt is here for a f/u Hx of NSTEMI w/ CARLEE to RCA at [facility]. Pt presented to [facility] on 02/12/2020 with worsening substernal CP, found to have non-specific ST & T wave changes & elevated cardiac enzymes (Troponin 1.85 at ED, up to 2.38 at [facility]). Administered ASA, heparin, nitropaste. Echo obtained that showed preserved LV systolic function, no regional wall motion abnormalities, no valve abnormalities and intact EF 55-60%. Transferred to [facility] for cardiac cath, CARLEE placed RCA. [facility] consulted and pt started on Ticagrelor 90mg BID, Atorvastatin 80mg QD, ASA 81mg QD. Pt finally back into the care of Cardiology, last seen 12/2024 Assessment & Plan (10/27/2022 10:59 AM EST): Pt is s/p NSTEMI w/ CARLEE to RCA at [facility]. Pt presented to [facility] on 02/12/2020 with worsening substernal CP, found to have non-specific ST & T wave changes & elevated cardiac enzymes (Troponin 1.85 at ED, up to 2.38 at [facility]). Administered ASA, heparin, nitropaste. Echo obtained that showed preserved LV systolic function, no regional wall motion abnormalities, no valve abnormalities and intact EF 55-60%. Transferred to [facility] for cardiac cath, CARLEE placed RCA. [facility] consulted and pt started on Ticagrelor 90mg BID, Atorvastatin 80mg QD, ASA 81mg QD. Pt tells me he has not seen the necktie stitcher in years. Will refer back Assessment & Plan (07/30/2022 10:41 AM EST): Pt is s/p NSTEMI w/ CARLEE to RCA at [facility]. Pt presented to [facility] on 02/12/2020 with worsening substernal CP, found to have non-specific ST & T wave changes & elevated cardiac enzymes (Troponin 1.85 at ED, up to 2.38 at [facility]). Administered ASA, heparin, nitropaste. Echo obtained that showed preserved LV systolic function, no regional wall motion abnormalities, no valve abnormalities and intact EF 55-60%. Transferred to [facility] for cardiac cath, CARLEE placed RCA. [facility] consulted and pt started on Ticagrelor 90mg BID, Atorvastatin 80mg QD, ASA 81mg QD. Abnormal chest CT 07/30/2022 Assessment & Plan (10/27/2022 11:00 AM EST): Pt had a Chest CT at [facility] ER 05/11/2019 : read as Indeterminate right lower lobe spiculated lesion , must be considered neoplastic until proven otherwise. We contacted [facility] Liver transplant team and faxed them [...] f/u Chest CT in 6 months at [facility]. It was eventually done at [facility] in 07/2022 and it was negative for metastatic disease Assessment & Plan (09/01/2022 9:16 AM EST): Pt had a Chest CT at [facility] ER 05/11/2019 : read as Indeterminate right lower lobe spiculated lesion , must be considered neoplastic until proven otherwise. We contacted [facility] Liver transplant team and faxed them [...] Pt had a repeat Chest CT at [facility] 08/01/2022 and it was read as No evidence of metastasic disease on the chest Assessment & Plan (07/30/2022 10:41 AM EST): Pt had a Chest CT at [facility] ER 05/11/2019 : read as Indeterminate right lower lobe spiculated lesion , must be considered neoplastic until proven otherwise. We contacted [facility] Liver transplant team and faxed them [...] f/u Chest CT in 6 months at [facility]. It appears he had it done yesterday at [facility] Old myocardial infarction 07/30/2022 Overview (11/30/2022): Last Assessment & Plan: Pt is s/p NSTEMI w/ CARLEE to RCA at [facility]. Pt presented to [facility] on 02/12/2020 with worsening substernal CP, found to have non-specific ST & T wave changes & elevated cardiac enzymes (Troponin 1.85 at ED, up to 2.38 at [facility]). Administered ASA, heparin, nitropaste. Echo obtained that showed preserved LV systolic function, no regional wall motion abnormalities, no valve abnormalities and intact EF 55-60%. Transferred to [facility] for cardiac cath, CARLEE placed RCA. [facility] consulted and pt started on Ticagrelor 90mg BID, Atorvastatin 80mg QD, ASA 81mg QD. Pt tells me he has not seen the necktie stitcher in years. Will refer back Stage 3b chronic kidney disease (CMS/HCC) 2021 Overview (10/27/2023): Pharmacotherapy: - Vitamin D3 2,000 units daily - Losartan 25mg daily History: - Followed by renal Assessment & Plan (02/15/2025 9:11 AM EDT): Under the care of Nephrology, last seen 11/29/2024 Assessment & Plan (08/01/2024 9:58 AM EST): [...] quite stable, He continues to f/u at [facility] s/p liver transplant Assessment & Plan (10/27/2022 10:58 AM EST): Cirrhosis, hx of HCC x 2 post TACE, radiofrequency ablation, SBRT. Pt doing well, quite stable, He continues to f/u at [facility] s/p liver transplant Assessment & Plan (07/30/2022 10:10 AM EST): Cirrhosis, hx of HCC x 2 post TACE, radiofrequency ablation, SBRT. 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 Under the care of Liver transplant clinic at [facility] On a regimen of: prograf Off Coumadin Last visit 06/05/2025 per their note: He has not had evidence of recurrent HCC surveillance imaging including CT chest and CT 3-phase in February 2024, and they will plan to order repeat CT 3-phase today given 2x areas of arterial enhancement (likely perfusional). [...] order repeat CT 3-phase today No further imaging indicated if CT surveillance remains stable without recurrent HCC. 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 Under the care of Liver transplant clinic at [facility] Last seen 10/16/2021. On a regimen of: prograf 2 mg BID Off Coumadin Last seen at the 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 Under the care of Liver transplant clinic at [facility] Last seen 10/16/2021. On a regimen of: prograf 2 mg BID Off Coumadin Last seen at the [facility] Liver transplant clinic 10/16/2021 they recommended [...] repeat occurrences since then. Assessment & Plan (06/12/2025 2:24 PM EDT): Images from the original note were not included. Patient is here for a follow up for HTN Blood pressure today: stable He is Currently on Hydralazine 25 mg BID , Labetalol 300 mg BID, Losartan 25 mg po daily and Amlodipine 5 mg po daily Of note his necktie stitcher stopped his Carvedilol, No longer on Hydrochlorothiazide, Lisinopril and Nadolol Most recent electrolytes, Bun and Creatinine done on: 11/28/2024 ( [facility] Outside Information Contains abnormal data Comprehensive [...] 0.0 - 1.4 mg/dL 0.6 Resulting Agency [facility] Specimen Collected: 05/30/25 08:38 Performed by: [facility] Last Resulted: 05/30/25 09:36 Received From: [email or web address] Result Received: 06/11/25 09:40 Pt is under the care of Nephrology, last seen in 11/28/2024. Plan: Continue current regimen as per Nephrology, who recommended a sleep study Bring BP monitor next visit Follow up 3 months Assessment & Plan (02/15/2025 9:19 AM EDT): Images from the original note were not included. Patient is here for a follow up for HTN Blood pressure today: He is Currently on Hydralazine 25 mg BID , Labetalol 300 mg BID, Losartan 25 mg po daily and Amlodipine 5 mg po daily Of note his necktie stitcher stopped his Carvedilol, No longer on Hydrochlorothiazide, Lisinopril and Nadolol Most recent electrolytes, Bun and Creatinine done on: 11/28/2024 ( [facility] Everywhere Labs History Expand All Collapse All BONE MINERAL DATA [facility] Mppxzvfvns79/08/2025 CBC [facility] Kdpsredimo72/08/2025 CHEM PROFILE [facility] Srmvqzpiio80/08/2025 Component 11/28/2024 11/28/2024 11/28/2024 11/28/2024 09/27/2023 09/27/2023 09/27/2023 09/27/2023 05/25/2022 Glucose 125 High -- -- -- 91 -- -- -- 126 High Load older lab results BUN 32 High -- -- -- 21 -- -- -- 23 Load older lab results Creatinine 1.72 High -- -- -- 1.5 High -- -- -- 1.4 High Load older lab results Sodium 142 -- -- -- 141 -- -- -- 142 Load older lab results Potassium 4.6 -- -- -- 4.6 -- -- -- 4.5 Load older lab results Chloride 110 High -- -- -- 106 -- -- -- 105 Load older lab results Bicarbonate (CO2) CANCELED -- -- -- 23 -- -- -- 25 Load older lab results Anion Gap -- -- -- -- 12 -- -- -- 12 Load older lab results Calcium 8.8 -- -- -- 9.1 -- -- -- 9.1 Load older lab results Est GFR Non -- -- -- -- 49 -- -- -- 54 Load older lab results eGFR Non-Afr Indonesian -- -- -- -- -- -- -- -- -- Load older lab results Total Protein 6.6 -- -- -- -- -- -- -- -- Load older lab results Albumin 4.4 -- -- -- 4.4 -- -- -- 4.6 Load older lab results Magnesium -- -- 1.4 Low -- -- -- 1.8 -- -- Load older lab results Total Bilirubin 0.3 -- -- -- 0.4 -- -- -- -- Load older lab results ALT (SGPT) 8 -- -- -- 9 -- -- -- -- Load older lab results AST (SGOT) 15 -- -- -- 15 -- -- -- -- Load older lab results Alkaline Phosphatase 74 -- -- -- 66 -- -- -- -- Load older lab results Phosphorus, Serum -- -- -- -- -- -- -- 3.7 2.7 Load older lab results Protein, Total -- -- -- -- 6.7 -- -- -- -- Load older lab results A/G Ratio -- -- -- -- 1.9 -- -- -- -- Load older lab results Uric Acid -- 8.6 High -- -- -- 7.7 -- -- -- Load older lab results eGFR CKD-EPI CR 2020 41 Low -- -- -- -- -- -- -- -- BUN/Creatinine Ratio 19 -- -- -- -- -- -- -- -- Phosphorus -- -- -- 3.7 -- -- -- -- -- eGFR -- -- -- -- -- -- -- -- -- Load older lab results Pt is under the care of Nephrology, last seen in 11/28/2024. Plan: Continue current regimen as per Nephrology, who recommended a sleep study Bring BP monitor next visit Follow up 3 months Assessment & Plan (08/01/2024 9:20 AM EST): Patient is here for a follow up for HTN Blood pressure elevated, he insists his BP at home is normal He is Currently on Hydralazine 25 mg TID , Labetalol 300 mg BID, Losartan 25 mg po daily and Amlodipine 5 mg po daily Of note his necktie stitcher stopped his Carvedilol, No longer on Hydrochlorothiazide, [...] and communicated with liver transplant team at [facility] for close follow-up of tacrolimus. F/U in [...] 60 mg po daily Of note his necktie stitcher stopped his Carvedilol, No longer on Hydrochlorothiazide, [...] 60 mg po daily Of note his necktie stitcher stopped his Carvedilol, No longer on Hydrochlorothiazide, [...] 30 mg po daily Of note his necktie stitcher stopped his Carvedilol, No longer on Hydrochlorothiazide, [...] 30 mg po daily Of note his necktie stitcher stopped his Carvedilol, No longer on Hydrochlorothiazide, [...] 25 mg po TID Of note his necktie stitcher stopped his Carvedilol, No longer on Hydrochlorothiazide, [...] and Losartan same dose Of note his necktie stitcher stopped his Carvedilol, No longer on Hctz, [...] Hydralazine TID, he agreed Of note his necktie stitcher stopped his Carvedilol, No longer on Hctz, [...] was going to have Of note his necktie stitcher stopped his Carvedilol, No longer on Hctz, [...] with long-term current use of insulin 08/22/2015 Assessment & Plan (06/12/2025 11:53 AM EDT): Patient is here for a follow up DM today: controlled Hgb A1c 06/12/2025: 6.5 Regimen Metformin XR 500 mg po BID Pt has CKD Oph: Pt tells me he was seen by Dr. Coburn last year Foot check risk of zero Pt is being followed at [facility] Endocrinology.They discontinued his lantus Assessment & Plan (02/15/2025 9:38 AM EDT): Patient is here for a follow up DM today: controlled Hgb A1c 02/15/2025: 6.6 from 6.8 Pt is being followed at [facility] Endocrinology.They discontinued his lantus He is only on Metformin XR 500 mg BID. He is on [employer] Assessment & Plan (08/01/2024 10:11 AM EST): Patient is here for a follow up after a long hiatus DM today: controlled Hgb A1c 08/01/2024: 6.8 Pt is being followed at [facility] Endocrinology. He tells me they recently [...] Doing ok Pt is being followed at [facility] Endocrinology Currently on Lantus 24 units qhs , Metformin XR 500 mg BID Assessment & Plan (12/01/2022 10:09 AM EDT): Doing ok Pt is being followed at [facility] Endocrinology POC today 146 Assessment & Plan (10/27/2022 10:53 AM EST): Doing ok Pt is being followed at [facility] Endocrinology Assessment & Plan (07/30/2022 10:40 AM EST): Doing ok Pt is being followed at [facility] Endocrinology Wrist fracture, left 05/12/2012 Hyperlipidemia 05/12/2012 Overview (10/27/2023): Pharmacotherapy: - Aspirin 81mg daily History: - Was followed by [facility] cardiology but is no longer being followed. They prescribed atorvastatin 80mg daily in past but denied refills and patient has been off since Aug 2023. Assessment & Plan (06/12/2025 11:48 AM EDT): Patient with elevated lipids. Most recent lipid profile from: Lab Results Component Value Date TRIG 69 09/21/2023 CHOL 120 09/21/2023 LDLCHOLCAL 74 09/21/2023 HDL 33 (L) 09/21/2023 Currently on Aorvastatin 80 mg po daily started by cardiology . advised to try to adhere to a low cholesterol diet, counseled and educated about diet and exercise Asked to repeat Lipid profile Assessment & Plan (02/15/2025 9:20 AM EDT): Patient with elevated lipids. Most recent lipid profile from: Lab Results Component Value Date TRIG 69 09/21/2023 CHOL 120 09/21/2023 LDLCHOLCAL 74 09/21/2023 HDL 33 (L) 09/21/2023 Currently on Aorvastatin 80 mg po daily started by cardiology . advised to try to adhere to a low cholesterol diet, counseled and educated about diet and exercise Assessment & Plan (10/27/2023 5:15 PM EST): [...] 08/01/2024 08/01/2024 Stage 3b chronic kidney disease (CMS/HCC) 08/01/2024 08/01/2024 Acute conjunctivitis of both eyes 08/01/2024 05/17/2025 Assessment & Plan (08/01/2024 10:13 AM EST): Pt with c/o greenish discharge both eyes x 2 days Exam suggestive of conjunctivitis Plan: erythromycin ointment Follow up if no improvement Hypertensive emergency 07/30/202208/04 Assessment & Plan (07/30/2022 [...] be transported via ambulance Chronic hepatitis C (CMS/HCC) 05/12/2012 08/01/2024 Assessment & Plan (10/27/2022 10:52 AM EST): Under the care of ELBA Gomez, at [facility] Assessment & Plan (07/30/2022 10:11 AM EST): Under the care of ELBA Gomez, at [facility] Diabetes mellitus, type 2 02/01/2012 Assessment & Plan (07/30/2022 10:05 AM EST): Encounters Date Type Department Care Team Description 06/12/2025 11:30 AM EDT Office Visit [facility] [address] [place] [id number] Shaun Tarango MD Type 2 diabetes mellitus with stage 3a chronic kidney disease, with long-term current use of insulin (HCC) (Primary Dx); Essential hypertension; Mixed hyperlipidemia; S/P liver transplant (CMS/HCC) (HCC); Preventative health care 06/12/2025 Travel 06/11/2025 Telephone [facility] [address], [place] [phone] Shaun Tarango MD chartprep 05/28/2025 Refill [facility] [address], [place] [phone] Shaun Tarango MD 05/18/2025 Travel 05/16/2025 Telephone [facility] [address], [place] [phone] Shaun Tarango MD chart prep from Last 3 Months Immunizations Immunization Administration [...] oid, preservative free, adsorbed 10/29/2005 Tdap 05/07/2016,10/23/2010 Zoster, Recombinant 11/15/2024 Social History Tobacco Use Types Packs/Day Years [...] 9.6 oz) 06/12/2025 11:32 AM EDT Height 157.5 cm (5' 2 ) 02/15/2025 9:18 AM EDT Body Mass Index 27.55 02/15/2025 9:18 AM EDT Plan of Treatment Health Maintenance Due [...] 11/09/2022, 10/22, 02/09/2022 Colorectal Cancer Screening 11/10/2023 Lipid Panel 09/21/2024 09/21/2023, 10/22, 05/01/2021 Zoster Vaccines (2 of 2) 01/10/2025 11/15/2024 COVID-19 Vaccine ( - season) 2025 05/01/2021, 11/20/2020, 10/23/2020 Influenza Vaccine (#1) 2025 8, 05/07/2016, 05/17/2015, Additional history exists Diabetes: Hemoglobin A1C 09/12/2025 025, 02/15/2025, 08/01/2024, Additional history exists SDOH Screening 10/23/2025 10/23/2024 DTaP/Tdap/Td Vaccines (3 - Td or Tdap) 05/07/2026 05/07/2016, 10/23/2010, 10/29/2005 Alcohol/Substance Use Screening 06/12/2026 06/12/2025 Depression Screening 06/12/2026 06/12/2025, 06/12/20 25 Tobacco Screening 06/12/2026 06/12/2025 Hepatitis A Vaccines Completed 08/02/2002, 08/02/2002, 07/18/2001, [...] hypertension 142/66(2024 11:32 AM EDT) No Tavon Villa PharmD Procedures Procedure Name Priority Date/Time Associated Diagnosis Comments VITAMIN B12 Routine 06/12/2025 12:11 PM EDT Skin exam, screening for cancer PSA, SCREEN Routine 06/12/2025 12:11 PM EDT Preventative health care POCT GLUCOSE Routine 06/12/2025 12:02 PM EDT Type 2 diabetes mellitus with stage 3a chronic kidney disease, with long-term current use of insulin (HCC) POCT GLYCOSYLATED HEMOGLOBIN (HGB A1C) Routine 06/12/2025 12:01 PM EDT Type 2 diabetes mellitus with stage 3a chronic kidney disease, with long-term current use of insulin (HCC) LIPID PANEL, STANDARD Routine 09/21/2023 9:12 AM EST HM COLONOSCOPY Routine 11/09/2022 10:24 AM EDT from Last 3 Months or Most Recently Relevant to Health Maintenance Results * PSA, Screen (06/12/2025 12:11 PM EDT) PSA, Total 3.92 <0.05 - 4.0 ng/mL [facility] Comment:PSA methodology: Diya Mantilla i ChemiluminescentMicroparticle Immunoassay (CMIA) Blood Venous blood specimen / Unknown 06/12/2025 12:11 PM EDT 06/12/2025 1:34 PM EDT us Shaun White MD LAB BLOOD ORDERABLES Final Result Performing Organization Address [facility] [address]/ZIP Co de Phone Number [facility] [address] [place] [phone] * Vitamin B12 (06/12/2025 12:11 PM EDT) Vitamin B12 302 200 - 900 pg/mL [facility] Comment:NORMAL 200-900 PG/ML INDETERMINATE 160-199 PG/ML DEFICIENT < 160 PG/ML 06/12/2025 12:1 1 PM EDT 06/12/2025 1:34 PM EDT Shaun White MD LAB BLOOD ORDERABLES Final Result Performing Organization Address [facility] [address]/[facility] Co de Phone Number [facility] [address] [place] [phone] * POCT glucose manually resulted (06/12/2025 12:02 PM EDT) Pathologist [facility] Glucose Blood, POC 168 60 - 200 mg/dL QC Media Lot # [id number] Lot# Expiration Date [id number] Blood Capillary blood specimen / Unknown 06/12/2025 12:02 PM EDT Shaun White MD POINT OF CARE TEST EN TER/EDIT ORDERABLES Final Result * (ABNORMAL) POCT glycosylated hemoglobin (Hgb A1c) (06/12/2025 12:01 PM EDT) Hemoglobin A1C 6.1(A) 4.0 - 5.7 % QC Media Lot # [id number] Lot# Expiration Date ,222 Blood Capillary blood specimen / Unknown 06/12/2025 12:01 PM EDT Shaun White MD POINT OF CARE TEST EN TER/EDIT ORDERABLES Final Result * (ABNORMAL) Lipid Panel, Standard (09/21/2023 9:12 AM EST) Triglycerides 69 <150 mg/dL [facility] Comment:Desirable Triglyceri de: less than 150 mg/dLBorderline High Triglyceride 150-199 mg/dLHigh Triglyceride: 200-499 mg/dLVery High Triglyceride: greater than or equal to 5OO mg/dL Cholesterol 120 <200 mg/dL [facility] Comment:Desirable Cholestero l: less than 200 mg/dLBorderline High Cholesterol: 200-239 mg/dLHigh Cholesterol: greater than 239 mg/dL LDL Cholesterol Calculated 74 <100 mg/dL [facility] Comment:Desirable LDL: less than 100 mg/dLNear Optimal/Above Optimal LDL: 110- 129 mg/dLBorderline High LDL: 130-159 mg/dLHigh LDL: 160-189 mg/dLVery High LDL: greater than or equal to 190 mg/dL HDL Cholesterol 33(L) >40 mg/dL [facility] Comment:Desirable HDL: great er than 40 mg/dL Note: This HDL assay may give artificially low results in patients with liver disease. 09/21/2023 9:12 AM EST 09/21/2023 11:41 AM EST Shaun White MD LAB BLOOD ORDERABLES Final Result 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
[2025-06-12 17:59] LABS: Alanine Aminotransferase 17 U/L (0-40); Albumin Level 4.7 g/dL (3.5-5.0); Alkaline Phosphatase 63 U/L (39-117); Anion Gap 13 (12-20); Aspartate Amino Transferase 22 U/L (5-37); Blood Urea Nitrogen 40 mg/dL (9-16); Calcium 9.6 mg/dL (8.4-10.2); Carbon Dioxide 23 mmol/L (22-29); Chloride 111 mmol/L (96-108); Cholesterol 109 mg/dL (<200); Estimated Glomerular Filt Rate 29; HDL Cholesterol 33 mg/dL (>40); Potassium 5.7 mmol/L (3.3-5.1); Sodium 141 mmol/L (135-145); Total Protein 7.0 g/dL (6.5-8.0); Triglycerides 142 mg/dL (<150)
== END 2025-06-12 12:04 | disposition home or self-care (01) ==
LOC: HO.HHCL 12:03
PROVIDERS: PCP Internal Medicine; Visit Provider Internal Medicine
DX: Z00.00 Encounter for general adult medical examination without abnormal findings (principal); Z12.5 Encounter for screening for malignant neoplasm of prostate; E11.22 Type 2 diabetes mellitus with diabetic chronic kidney disease; I12.9 Hypertensive chronic kidney disease with stage 1 through stage 4 chronic kidney disease, or unspecified chronic kidney disease; N18.31 Chronic kidney disease, stage 3a; E78.2 Mixed hyperlipidemia; Z79.4 Long term (current) use of insulin
CPT/HCPCS: 36415; 80053; 80061; 82607; 84153